=== PATIENT | male | born 1960 | race Caucasian/White ===

== ENCOUNTER 2016-07-05 21:07 | Inpatient (IN) | payer MEDICARE, MEDICAID ==
[~2016-07-05] VITALS: Ht 190.5 cm; Wt 100.2 kg
[~2016-07-05 21:07] MED LIST: DIVA500T69 PO; GABA-533 PO; LEVO100 PO; LISI5TAB PO; NALT50 PO; OLAN10TA22 PO; TRIH5TAB2 PO; [UNRECOGNIZED DRUG - CODE] TD
[2016-07-05 22:04] VITALS: BP 115/55
[2016-07-06 00:56] VITALS: BP 115/73
[2016-07-06] MEDS ORDERED: -PHARMACY VACCINE NOTE- MISC ONE ×2 (01:15)
[2016-07-06 07:31] LABS: BASOPHILS % (AUTO) 0.3 % (0.0-2.0); EOSINOPHILS % (AUTO) 0.5 % (1.0-6.0); HEMATOCRIT 38.8 % (41-53); HEMOGLOBIN 13.3 g/dL (13.5-17.5); LYMPHOCYTES # (AUTO) 2.1 K/uL (1.0-4.8); MEAN CORPUSCULAR HEMOGLOBIN 33.5 pg (26.0-34.0); MEAN CORPUSCULAR HGB CONC 34.2 G/dL (31.0-37.0); MEAN CORPUSCULAR VOLUME 98 fL (80-100); MONOCYTES # (AUTO) 0.6 K/uL (0.1-1.0); MONOCYTES % (AUTO) 6.1 % (2.0-9.0); NEUTROPHILS # (AUTO) 6.9 K/uL (1.8-7.7); NEUTROPHILS % (AUTO) 71.1 % (40.0-70.0); PLATELET COUNT (AUTO) 206 K/uL (150-450); RED BLOOD CELL COUNT(AUTO) 3.96 MIL/uL (4.50-5.90); RED CELL DISTRIBUTION WIDTH 12.8 % (11.5-14.5); WHITE BLOOD COUNT (AUTO) 9.7 K/uL (4.5-11.0)
[2016-07-06 07:54] LABS: HEMOGLOBIN A1C 4.8 % (4.5-6.2)
[2016-07-06] MEDS ORDERED: MAGNESIUM HYDROXIDE SUSPENSION 30 ML UDCUP PO PRN (08:00)
[2016-07-06] MEDS ORDERED: PHENYLEPHRINE/SHK LV/MIN OIL/PET 57 GM OINTMENT TP PRN (08:00)
[2016-07-06] MEDS ORDERED: PROMETHAZINE HCL 25 MG TABLET PO PRN (08:00)
[2016-07-06] MEDS ORDERED: MAG HYDROX/AL HYDROX/SIMETH ES 30 ML SUSPENSION UDCUP PO PRN (08:00)
[2016-07-06 08:08] LABS: ALANINE AMINOTRANSFERASE 28 U/L (12-78); ALBUMIN 2.5 g/dL (3.4-5.0); ANION GAP 3 mmol/L (8-16); ASPARTATE AMINOTRANSFERASE 20 U/L (15-37); BILIRUBIN,TOTAL 0.5 mg/dL (0.1-1.0); CALCIUM, TOTAL 8.2 mg/dL (8.8-10.5); CARBON DIOXIDE 32 mmol/L (22-29); CHLORIDE 101 mmol/L (98-107); CHOL/HDL RATIO 2.3 (4.2-7.3); CREATININE 0.96 mg/dL (0.60-1.30); GLOMERULAR FILTR. RATE CALC > 60 mL/min (>60); POTASSIUM 4.2 mmol/L (3.5-5.1); SODIUM SERUM 136 mmol/L (136-145); THYROID STIMULATING HORMONE 1.81 uIU/mL (0.36-3.74); TOTAL PROTEIN, SERUM 5.8 g/dL (6.4-8.2); UREA NITROGEN, BLOOD 14 mg/dL (7-18)
[2016-07-06] MEDS: THIAMINE HCL 100 MG TABLET PO SCH ×2 (08:12→16:40)
[2016-07-06] MEDS: FOLIC ACID 1 MG TABLET PO SCH (08:12)
[2016-07-06] MEDS: MULTIVITAMINS WITH MINERALS, THERAPEUTIC TABLET PO SCH (08:12)
[2016-07-06] MEDS: GABAPENTIN 400 MG CAPSULE PO SCH ×3 (08:13→16:40)
[2016-07-06] MEDS: TRIHEXYPHENIDYL HCL 5 MG TABLET PO SCH ×2 (08:13→16:40)
[2016-07-06] MEDS: LORazepam 2 MG TABLET PO PRN ×2 (08:21→12:34)
[2016-07-06 08:41] VITALS: BP 104/66
[2016-07-06] MEDS: LISINOPRIL 5 MG TABLET PO SCH (09:00)
[2016-07-06] MEDS: NICOTINE 21 MG/24 HOUR PATCH TD SCH (09:39)
[2016-07-06 16:11] VITALS: BP 137/67
[2016-07-06] MEDS: DIVALPROEX SODIUM 500 MG DR TABLET PO SCH (20:20)
[2016-07-06] MEDS ORDERED: OLANZapine 10 MG TABLET PO SCH (21:00)
[2016-07-06] MEDS: ZOLPIDEM TARTRATE 10 MG TABLET PO PRN (23:14)
[2016-07-07 02:11] VITALS: BP 123/67
[2016-07-07] MEDS: LEVOTHYROXINE SODIUM 100 MCG TABLET PO SCH (06:08)
[2016-07-07 08:35] VITALS: BP 136/72
[2016-07-07] MEDS: THIAMINE HCL 100 MG TABLET PO SCH ×2 (09:14→16:06)
[2016-07-07] MEDS: TRIHEXYPHENIDYL HCL 5 MG TABLET PO SCH ×2 (09:14→16:06)
[2016-07-07] MEDS: LISINOPRIL 5 MG TABLET PO SCH (09:14)
[2016-07-07] MEDS: NICOTINE 21 MG/24 HOUR PATCH TD SCH (09:14)
[2016-07-07] MEDS: MULTIVITAMINS WITH MINERALS, THERAPEUTIC TABLET PO SCH (09:14)
[2016-07-07] MEDS: FOLIC ACID 1 MG TABLET PO SCH (09:14)
[2016-07-07] MEDS: GABAPENTIN 400 MG CAPSULE PO SCH ×3 (09:14→16:06)
[2016-07-07] MEDS: LORazepam 2 MG TABLET PO PRN ×2 (09:23→14:22)
[2016-07-07] MEDS: GuaiFENesin/D-METHORPHAN [SUGAR-FREE] 200-20MG/10 ML SYRUP UDCUP PO PRN ×3 (10:20→18:40)
[2016-07-07] MEDS ORDERED: GuaiFENesin/D-METHORPHAN [SUGAR-FREE] 200-20MG/10 ML SYRUP UDCUP PO PRN (12:45)
[2016-07-07] MEDS ORDERED: HydrOXYzine PAMOATE 50 MG CAPSULE PO PRN (12:45)
[2016-07-07 16:36] VITALS: BP 133/80
[2016-07-07] MEDS ORDERED: THIAMINE HCL 100 MG TABLET PO SCH (17:00)
[2016-07-07] MEDS: DIVALPROEX SODIUM 500 MG DR TABLET PO SCH (20:14)
[2016-07-07] MEDS: ZOLPIDEM TARTRATE 10 MG TABLET PO PRN (21:23)
[2016-07-08 01:01] VITALS: BP 135/85
[2016-07-08] MEDS: LORazepam 2 MG TABLET PO PRN ×4 (01:04→23:42)
[2016-07-08] MEDS: GuaiFENesin/D-METHORPHAN [SUGAR-FREE] 200-20MG/10 ML SYRUP UDCUP PO PRN ×5 (02:05→21:11)
[2016-07-08] MEDS: LEVOTHYROXINE SODIUM 100 MCG TABLET PO SCH (06:24)
[2016-07-08 08:24] LABS: BASOPHILS % (AUTO) 0.4 % (0.0-2.0); EOSINOPHILS % (AUTO) 1.3 % (1.0-6.0); HEMATOCRIT 40.3 % (41-53); HEMOGLOBIN 13.9 g/dL (13.5-17.5); LYMPHOCYTES # (AUTO) 2.2 K/uL (1.0-4.8); LYMPHOCYTES % (AUTO) 33.5 % (22.0-44.0); MEAN CORPUSCULAR HEMOGLOBIN 33.8 pg (26.0-34.0); MEAN CORPUSCULAR HGB CONC 34.6 G/dL (31.0-37.0); MEAN CORPUSCULAR VOLUME 98 fL (80-100); MONOCYTES # (AUTO) 0.6 K/uL (0.1-1.0); MONOCYTES % (AUTO) 9.2 % (2.0-9.0); NEUTROPHILS # (AUTO) 3.6 K/uL (1.8-7.7); NEUTROPHILS % (AUTO) 55.6 % (40.0-70.0); PLATELET COUNT (AUTO) 227 K/uL (150-450); RED BLOOD CELL COUNT(AUTO) 4.13 MIL/uL (4.50-5.90); RED CELL DISTRIBUTION WIDTH 12.8 % (11.5-14.5); WHITE BLOOD COUNT (AUTO) 6.5 K/uL (4.5-11.0)
[2016-07-08 08:34] VITALS: BP 109/69
[2016-07-08] MEDS: THIAMINE HCL 100 MG TABLET PO SCH ×2 (08:59→16:13)
[2016-07-08] MEDS: MULTIVITAMINS WITH MINERALS, THERAPEUTIC TABLET PO SCH (08:59)
[2016-07-08] MEDS: LISINOPRIL 5 MG TABLET PO SCH (08:59)
[2016-07-08] MEDS: NICOTINE 21 MG/24 HOUR PATCH TD SCH (08:59)
[2016-07-08] MEDS: FOLIC ACID 1 MG TABLET PO SCH (08:59)
[2016-07-08] MEDS: GABAPENTIN 400 MG CAPSULE PO SCH ×3 (08:59→16:13)
[2016-07-08] MEDS ORDERED: MULTIVITAMINS WITH MINERALS, THERAPEUTIC TABLET PO SCH (09:00)
[2016-07-08] MEDS ORDERED: CloZAPine 25 MG TABLET PO SCH (09:00)
[2016-07-08] MEDS ORDERED: FOLIC ACID 1 MG TABLET PO SCH (09:00)
[2016-07-08] MEDS: NALTREXONE HCL 50 MG TABLET PO SCH (09:00)
[2016-07-08] MEDS: TRIHEXYPHENIDYL HCL 5 MG TABLET PO SCH ×2 (09:00→16:13)
[2016-07-08 16:00] VITALS: BP 120/78
[2016-07-08] MEDS: DIVALPROEX SODIUM 500 MG DR TABLET PO SCH (20:35)
[2016-07-08] MEDS: ZOLPIDEM TARTRATE 10 MG TABLET PO PRN (21:06)
[2016-07-08] MEDS ORDERED: TUBERCULIN, PURIFIED PROTEIN DERIVATIVE 5 TU/0.1 ML SYG ID ONE (22:15)
[2016-07-09] VITALS: BP 140/89
[2016-07-09] MEDS: LEVOTHYROXINE SODIUM 100 MCG TABLET PO SCH (06:33)
[2016-07-09 08:24] VITALS: BP 140/77
[2016-07-09] MEDS: FOLIC ACID 1 MG TABLET PO SCH (08:56)
[2016-07-09] MEDS: LISINOPRIL 5 MG TABLET PO SCH (08:56)
[2016-07-09] MEDS: GABAPENTIN 400 MG CAPSULE PO SCH ×3 (08:56→16:44)
[2016-07-09] MEDS: MULTIVITAMINS WITH MINERALS, THERAPEUTIC TABLET PO SCH (08:56)
[2016-07-09] MEDS: NICOTINE 21 MG/24 HOUR PATCH TD SCH (08:56)
[2016-07-09] MEDS: NALTREXONE HCL 50 MG TABLET PO SCH (08:56)
[2016-07-09] MEDS ORDERED: CloZAPine 25 MG TABLET PO SCH ×2 (09:00→21:00)
[2016-07-09] MEDS: THIAMINE HCL 100 MG TABLET PO SCH ×2 (09:04→16:44)
[2016-07-09] MEDS: TRIHEXYPHENIDYL HCL 5 MG TABLET PO SCH ×2 (09:04→16:44)
[2016-07-09] MEDS: LORazepam 2 MG TABLET PO PRN ×2 (10:07→14:35)
[2016-07-09 10:08] VITALS: BP 122/77
[2016-07-09] MEDS: GuaiFENesin/D-METHORPHAN [SUGAR-FREE] 200-20MG/10 ML SYRUP UDCUP PO PRN ×2 (10:11→16:45)
[2016-07-09] MEDS ORDERED: GuaiFENesin/D-METHORPHAN [SUGAR-FREE] 200-20MG/10 ML SYRUP UDCUP PO PRN (15:00)
[2016-07-09 16:12] VITALS: BP 118/73
[2016-07-09] MEDS: DIVALPROEX SODIUM 500 MG DR TABLET PO SCH (20:48)
[2016-07-10 01:00] VITALS: BP 139/89
[2016-07-10] MEDS: GuaiFENesin/D-METHORPHAN [SUGAR-FREE] 200-20MG/10 ML SYRUP UDCUP PO PRN ×2 (01:08→21:38)
[2016-07-10] MEDS: LORazepam 2 MG TABLET PO PRN ×3 (01:08→17:53)
[2016-07-10] MEDS: LEVOTHYROXINE SODIUM 100 MCG TABLET PO SCH (06:34)
[2016-07-10 08:36] VITALS: BP 118/60
[2016-07-10] MEDS ORDERED: CloZAPine 25 MG TABLET PO SCH ×2 (09:00→21:00)
[2016-07-10] MEDS: TRIHEXYPHENIDYL HCL 5 MG TABLET PO SCH ×2 (09:18→16:40)
[2016-07-10] MEDS: FOLIC ACID 1 MG TABLET PO SCH (09:18)
[2016-07-10] MEDS: GABAPENTIN 400 MG CAPSULE PO SCH ×3 (09:18→16:40)
[2016-07-10] MEDS: NALTREXONE HCL 50 MG TABLET PO SCH (09:18)
[2016-07-10] MEDS: THIAMINE HCL 100 MG TABLET PO SCH ×2 (09:19→16:40)
[2016-07-10] MEDS: LISINOPRIL 5 MG TABLET PO SCH (09:19)
[2016-07-10] MEDS: MULTIVITAMINS WITH MINERALS, THERAPEUTIC TABLET PO SCH (09:19)
[2016-07-10] MEDS: NICOTINE 21 MG/24 HOUR PATCH TD SCH (09:25)
[2016-07-10 12:40] VITALS: BP 120/84
[2016-07-10 16:11] VITALS: BP 127/69
[2016-07-10] MEDS: QUEtiapine FUMARATE 100 MG TABLET PO PRN (19:30)
[2016-07-10] MEDS ORDERED: ZIPRASIDONE MESYLATE 20 MG/VIAL IM ONE (19:45)
[2016-07-10] MEDS: DIVALPROEX SODIUM 500 MG DR TABLET PO SCH (20:50)
[2016-07-11 06:30] VITALS: BP 106/65
[2016-07-11] MEDS: LEVOTHYROXINE SODIUM 100 MCG TABLET PO SCH (06:41)
[2016-07-11 09:15] VITALS: BP 152/84
[2016-07-11] MEDS: TRIHEXYPHENIDYL HCL 5 MG TABLET PO SCH ×2 (09:29→16:09)
[2016-07-11] MEDS: THIAMINE HCL 100 MG TABLET PO SCH ×2 (09:30→16:08)
[2016-07-11] MEDS: MULTIVITAMINS WITH MINERALS, THERAPEUTIC TABLET PO SCH (09:30)
[2016-07-11] MEDS: FOLIC ACID 1 MG TABLET PO SCH (09:30)
[2016-07-11] MEDS: CloZAPine 25 MG TABLET PO SCH ×2 (09:30→20:06)
[2016-07-11] MEDS: NICOTINE 21 MG/24 HOUR PATCH TD SCH (09:30)
[2016-07-11] MEDS: LISINOPRIL 5 MG TABLET PO SCH (09:31)
[2016-07-11] MEDS: GABAPENTIN 400 MG CAPSULE PO SCH ×3 (09:31→16:09)
[2016-07-11] MEDS: NALTREXONE HCL 50 MG TABLET PO SCH (09:31)
[2016-07-11] MEDS: GuaiFENesin/D-METHORPHAN [SUGAR-FREE] 200-20MG/10 ML SYRUP UDCUP PO PRN ×2 (12:16→20:07)
[2016-07-11] MEDS: LORazepam 2 MG TABLET PO PRN (12:36)
[2016-07-11] MEDS: QUEtiapine FUMARATE 100 MG TABLET PO PRN (13:33)
[2016-07-11 16:13] VITALS: BP_SYST 109
[2016-07-11] MEDS: DIVALPROEX SODIUM 500 MG DR TABLET PO SCH (20:06)
[2016-07-11] MEDS: ZOLPIDEM TARTRATE 10 MG TABLET PO PRN (21:44)
[2016-07-12] MEDS: LEVOTHYROXINE SODIUM 100 MCG TABLET PO SCH (06:03)
[2016-07-12] MEDS: TRIHEXYPHENIDYL HCL 5 MG TABLET PO SCH (08:30)
[2016-07-12] MEDS: MULTIVITAMINS WITH MINERALS, THERAPEUTIC TABLET PO SCH (08:30)
[2016-07-12] MEDS: CloZAPine 25 MG TABLET PO SCH ×2 (08:31→20:41)
[2016-07-12] MEDS: GABAPENTIN 400 MG CAPSULE PO SCH ×3 (08:31→16:55)
[2016-07-12] MEDS: NICOTINE 21 MG/24 HOUR PATCH TD SCH (08:31)
[2016-07-12] MEDS: FOLIC ACID 1 MG TABLET PO SCH (08:31)
[2016-07-12] MEDS: THIAMINE HCL 100 MG TABLET PO SCH ×2 (08:31→16:55)
[2016-07-12] MEDS: NALTREXONE HCL 50 MG TABLET PO SCH (08:32)
[2016-07-12] MEDS: LORazepam 2 MG TABLET PO PRN ×2 (08:35→21:27)
[2016-07-12] MEDS: LISINOPRIL 5 MG TABLET PO SCH (10:15)
[2016-07-12] MEDS: GuaiFENesin/D-METHORPHAN [SUGAR-FREE] 200-20MG/10 ML SYRUP UDCUP PO PRN (12:23)
[2016-07-12 16:07] VITALS: BP 117/64
[2016-07-12] MEDS: TRIHEXYPHENIDYL HCL 2 MG TABLET PO SCH (16:55)
[2016-07-12] MEDS: DIVALPROEX SODIUM 500 MG DR TABLET PO SCH (20:41)
[2016-07-12] MEDS: ZOLPIDEM TARTRATE 10 MG TABLET PO PRN (21:27)
[2016-07-13 02:08] VITALS: BP 121/66
[2016-07-13] MEDS: LEVOTHYROXINE SODIUM 100 MCG TABLET PO SCH (06:29)
[2016-07-13] MEDS: THIAMINE HCL 100 MG TABLET PO SCH ×2 (08:50→16:38)
[2016-07-13] MEDS: GABAPENTIN 400 MG CAPSULE PO SCH ×3 (08:50→16:38)
[2016-07-13] MEDS: FOLIC ACID 1 MG TABLET PO SCH (08:50)
[2016-07-13] MEDS: NALTREXONE HCL 50 MG TABLET PO SCH (08:50)
[2016-07-13] MEDS: LISINOPRIL 5 MG TABLET PO SCH (08:50)
[2016-07-13] MEDS: MULTIVITAMINS WITH MINERALS, THERAPEUTIC TABLET PO SCH (08:50)
[2016-07-13] MEDS: TRIHEXYPHENIDYL HCL 2 MG TABLET PO SCH ×2 (08:50→16:38)
[2016-07-13] MEDS: NICOTINE 21 MG/24 HOUR PATCH TD SCH (08:51)
[2016-07-13] MEDS ORDERED: CloZAPine 25 MG TABLET PO SCH (09:00)
[2016-07-13 09:20] VITALS: BP 107/58
[2016-07-13] MEDS: LORazepam 2 MG TABLET PO PRN (13:33)
[2016-07-13] MEDS: GuaiFENesin/D-METHORPHAN [SUGAR-FREE] 200-20MG/10 ML SYRUP UDCUP PO PRN (16:38)
[2016-07-13 18:18] VITALS: BP 120/76
[2016-07-13] MEDS: DIVALPROEX SODIUM 500 MG DR TABLET PO SCH (20:27)
[2016-07-13] MEDS ORDERED: CloZAPine 100 MG TABLET PO SCH (21:00)
[2016-07-13] MEDS: ZOLPIDEM TARTRATE 10 MG TABLET PO PRN (21:59)
[2016-07-14 06:22] VITALS: BP 124/62
[2016-07-14] MEDS: LEVOTHYROXINE SODIUM 100 MCG TABLET PO SCH (06:27)
[2016-07-14] MEDS: THIAMINE HCL 100 MG TABLET PO SCH ×2 (08:50→16:26)
[2016-07-14] MEDS: FOLIC ACID 1 MG TABLET PO SCH (08:50)
[2016-07-14] MEDS: TRIHEXYPHENIDYL HCL 2 MG TABLET PO SCH ×2 (08:51→16:26)
[2016-07-14] MEDS: LORazepam 2 MG TABLET PO PRN ×3 (08:51→22:51)
[2016-07-14] MEDS: NALTREXONE HCL 50 MG TABLET PO SCH (08:51)
[2016-07-14] MEDS: MULTIVITAMINS WITH MINERALS, THERAPEUTIC TABLET PO SCH (08:51)
[2016-07-14] MEDS: GABAPENTIN 400 MG CAPSULE PO SCH ×3 (08:51→16:26)
[2016-07-14] MEDS: NICOTINE 21 MG/24 HOUR PATCH TD SCH (08:53)
[2016-07-14] MEDS: LISINOPRIL 5 MG TABLET PO SCH (08:54)
[2016-07-14 08:55] VITALS: BP 115/67
[2016-07-14] MEDS ORDERED: CloZAPine 25 MG TABLET PO SCH (09:00)
[2016-07-14 16:00] VITALS: BP 138/86
[2016-07-14] MEDS: GuaiFENesin/D-METHORPHAN [SUGAR-FREE] 200-20MG/10 ML SYRUP UDCUP PO PRN (20:34)
[2016-07-14] MEDS: DIVALPROEX SODIUM 250 MG DR TABLET PO SCH (20:35)
[2016-07-14] MEDS: ZOLPIDEM TARTRATE 10 MG TABLET PO PRN (20:52)
[2016-07-14] MEDS ORDERED: CloZAPine 100 MG TABLET PO SCH (21:00)
[2016-07-14] MEDS: ACETAMINOPHEN 325 MG TABLET PO PRN (22:08)
[2016-07-14] MEDS ORDERED: DiphenhydrAMINE HCL 50 MG/ML VIAL IM ONE (23:45)
[2016-07-14] MEDS ORDERED: FluPHENAZine HCL 2.5 MG/ML INJ IM ONE ×2 (23:45→23:59)
[2016-07-14] MEDS ORDERED: LORazepam 2 MG/ML VIAL IM ONE (23:45)
[2016-07-14] MEDS ORDERED: LORazepam 0.5 MG TABLET ONE (23:50)
[2016-07-14] MEDS ORDERED: LORazepam 2 MG/ML VIAL ONE (23:52)
[2016-07-14] MEDS ORDERED: DiphenhydrAMINE HCL 50 MG/ML VIAL ONE (23:53)
[2016-07-15 00:05] VITALS: BP 112/63
[2016-07-15 00:40] VITALS: BP 126/74
[2016-07-15] MEDS: LEVOTHYROXINE SODIUM 100 MCG TABLET PO SCH (06:35)
[2016-07-15] MEDS: FOLIC ACID 1 MG TABLET PO SCH (08:41)
[2016-07-15] MEDS: TRIHEXYPHENIDYL HCL 2 MG TABLET PO SCH ×2 (08:41→16:42)
[2016-07-15] MEDS: GABAPENTIN 400 MG CAPSULE PO SCH ×3 (08:41→16:42)
[2016-07-15] MEDS: MULTIVITAMINS WITH MINERALS, THERAPEUTIC TABLET PO SCH (08:42)
[2016-07-15] MEDS: LISINOPRIL 5 MG TABLET PO SCH (08:42)
[2016-07-15] MEDS: NALTREXONE HCL 50 MG TABLET PO SCH (08:42)
[2016-07-15] MEDS: THIAMINE HCL 100 MG TABLET PO SCH ×2 (08:42→16:42)
[2016-07-15] MEDS: NICOTINE 21 MG/24 HOUR PATCH TD SCH (08:42)
[2016-07-15 08:44] VITALS: BP 133/66
[2016-07-15] MEDS ORDERED: CloZAPine 25 MG TABLET PO SCH (09:00)
[2016-07-15 18:57] VITALS: BP 128/73
[2016-07-15] MEDS: QUEtiapine FUMARATE 100 MG TABLET PO PRN (19:02)
[2016-07-15] MEDS: GuaiFENesin/D-METHORPHAN [SUGAR-FREE] 200-20MG/10 ML SYRUP UDCUP PO PRN (19:31)
[2016-07-15] MEDS ORDERED: CloZAPine 100 MG TABLET PO SCH (21:00)
[2016-07-15] MEDS: DIVALPROEX SODIUM 250 MG DR TABLET PO SCH (21:12)
[2016-07-16] MEDS: GuaiFENesin/D-METHORPHAN [SUGAR-FREE] 200-20MG/10 ML SYRUP UDCUP PO PRN ×3 (01:43→17:07)
[2016-07-16] MEDS: QUEtiapine FUMARATE 100 MG TABLET PO PRN (01:48)
[2016-07-16] MEDS: LORazepam 2 MG TABLET PO PRN ×3 (01:48→15:40)
[2016-07-16 01:49] VITALS: BP 111/61
[2016-07-16] MEDS: LEVOTHYROXINE SODIUM 100 MCG TABLET PO SCH (06:24)
[2016-07-16 08:25] LABS: BASOPHILS % (AUTO) 0.4 % (0.0-2.0); EOSINOPHILS % (AUTO) 1.7 % (1.0-6.0); HEMATOCRIT 42.3 % (41-53); HEMOGLOBIN 14.1 g/dL (13.5-17.5); LYMPHOCYTES # (AUTO) 2.6 K/uL (1.0-4.8); LYMPHOCYTES % (AUTO) 35.3 % (22.0-44.0); MEAN CORPUSCULAR HEMOGLOBIN 32.9 pg (26.0-34.0); MEAN CORPUSCULAR HGB CONC 33.3 G/dL (31.0-37.0); MEAN CORPUSCULAR VOLUME 99 fL (80-100); MONOCYTES # (AUTO) 0.6 K/uL (0.1-1.0); MONOCYTES % (AUTO) 7.7 % (2.0-9.0); NEUTROPHILS % (AUTO) 54.9 % (40.0-70.0); PLATELET COUNT (AUTO) 340 K/uL (150-450); RED BLOOD CELL COUNT(AUTO) 4.28 MIL/uL (4.50-5.90); RED CELL DISTRIBUTION WIDTH 12.9 % (11.5-14.5); WHITE BLOOD COUNT (AUTO) 7.3 K/uL (4.5-11.0)
[2016-07-16] MEDS: MULTIVITAMINS WITH MINERALS, THERAPEUTIC TABLET PO SCH (09:24)
[2016-07-16] MEDS: GABAPENTIN 400 MG CAPSULE PO SCH ×3 (09:24→16:00)
[2016-07-16] MEDS: THIAMINE HCL 100 MG TABLET PO SCH ×2 (09:24→16:01)
[2016-07-16] MEDS: NALTREXONE HCL 50 MG TABLET PO SCH (09:24)
[2016-07-16] MEDS: LISINOPRIL 5 MG TABLET PO SCH (09:24)
[2016-07-16] MEDS: TRIHEXYPHENIDYL HCL 2 MG TABLET PO SCH ×2 (09:24→16:01)
[2016-07-16] MEDS: NICOTINE 21 MG/24 HOUR PATCH TD SCH (09:25)
[2016-07-16] MEDS: CloZAPine 100 MG TABLET PO SCH ×2 (09:25→20:22)
[2016-07-16] MEDS: FOLIC ACID 1 MG TABLET PO SCH (09:25)
[2016-07-16] MEDS: ALBUTEROL SULFATE HFA 90 MCG/PUFF 8 GM INHALER IH PRN ×2 (10:59→20:23)
[2016-07-16 12:30] VITALS: BP 122/78
[2016-07-16] MEDS: ACETAMINOPHEN 325 MG TABLET PO PRN (12:32)
[2016-07-16 14:30] VITALS: BP 115/85
[2016-07-16] MEDS: IBUPROFEN 600 MG TABLET PO PRN (14:32)
[2016-07-16 16:11] VITALS: BP 119/66
[2016-07-16] MEDS ORDERED: ACETAMINOPHEN 325 MG TABLET PO PRN (18:00)
[2016-07-16] MEDS ORDERED: GuaiFENesin/D-METHORPHAN [SUGAR-FREE] 200-20MG/10 ML SYRUP UDCUP PO PRN (18:30)
[2016-07-16] MEDS: DIVALPROEX SODIUM 250 MG DR TABLET PO SCH (20:21)
[2016-07-17] MEDS: ALBUTEROL SULFATE HFA 90 MCG/PUFF 8 GM INHALER IH PRN (03:09)
[2016-07-17] MEDS: LEVOTHYROXINE SODIUM 100 MCG TABLET PO SCH (06:19)
[2016-07-17 07:00] VITALS: BP 118/71
[2016-07-17] MEDS: THIAMINE HCL 100 MG TABLET PO SCH ×2 (08:16→16:31)
[2016-07-17] MEDS: FOLIC ACID 1 MG TABLET PO SCH (08:16)
[2016-07-17] MEDS: CloZAPine 100 MG TABLET PO SCH ×2 (08:16→20:25)
[2016-07-17] MEDS: LISINOPRIL 5 MG TABLET PO SCH (08:16)
[2016-07-17] MEDS: NALTREXONE HCL 50 MG TABLET PO SCH (08:16)
[2016-07-17] MEDS: MULTIVITAMINS WITH MINERALS, THERAPEUTIC TABLET PO SCH (08:16)
[2016-07-17] MEDS: GABAPENTIN 400 MG CAPSULE PO SCH ×3 (08:16→16:31)
[2016-07-17] MEDS: TRIHEXYPHENIDYL HCL 2 MG TABLET PO SCH ×2 (08:16→16:31)
[2016-07-17] MEDS: NICOTINE 21 MG/24 HOUR PATCH TD SCH (08:26)
[2016-07-17 08:28] VITALS: BP 135/70
[2016-07-17] MEDS: GuaiFENesin/D-METHORPHAN [SUGAR-FREE] 200-20MG/10 ML SYRUP UDCUP PO PRN ×2 (10:26→20:14)
[2016-07-17] MEDS: LORazepam 2 MG TABLET PO PRN ×3 (12:30→22:10)
[2016-07-17 16:02] VITALS: BP 138/82
[2016-07-17] MEDS: DIVALPROEX SODIUM 250 MG DR TABLET PO SCH (20:25)
[2016-07-17] MEDS: ZOLPIDEM TARTRATE 10 MG TABLET PO PRN (20:29)
[2016-07-17 21:08] VITALS: BP 132/78
[2016-07-17] MEDS: IBUPROFEN 600 MG TABLET PO PRN (21:08)
[2016-07-18 00:51] VITALS: BP 116/75
[2016-07-18] MEDS: LEVOTHYROXINE SODIUM 100 MCG TABLET PO SCH (06:26)
[2016-07-18] MEDS ORDERED: CloZAPine 25 MG TABLET PO SCH (09:00)
[2016-07-18] MEDS: LISINOPRIL 5 MG TABLET PO SCH (10:37)
[2016-07-18] MEDS: THIAMINE HCL 100 MG TABLET PO SCH ×2 (10:37→16:01)
[2016-07-18] MEDS: FOLIC ACID 1 MG TABLET PO SCH (10:37)
[2016-07-18] MEDS: NALTREXONE HCL 50 MG TABLET PO SCH (10:37)
[2016-07-18] MEDS: MULTIVITAMINS WITH MINERALS, THERAPEUTIC TABLET PO SCH (10:37)
[2016-07-18] MEDS: GABAPENTIN 400 MG CAPSULE PO SCH ×3 (10:38→16:01)
[2016-07-18] MEDS: TRIHEXYPHENIDYL HCL 2 MG TABLET PO SCH ×2 (10:38→16:01)
[2016-07-18] MEDS: NICOTINE 21 MG/24 HOUR PATCH TD SCH (10:38)
[2016-07-18] MEDS: GuaiFENesin/D-METHORPHAN [SUGAR-FREE] 200-20MG/10 ML SYRUP UDCUP PO PRN ×2 (11:20→20:29)
[2016-07-18] MEDS: LORazepam 2 MG TABLET PO PRN ×2 (13:30→20:30)
[2016-07-18 16:10] VITALS: BP 127/86
[2016-07-18] MEDS: DIVALPROEX SODIUM 250 MG DR TABLET PO SCH (20:26)
[2016-07-18] MEDS ORDERED: CloZAPine 100 MG TABLET PO SCH (21:00)
[2016-07-19 01:15] VITALS: BP 119/89
[2016-07-19] MEDS: LORazepam 2 MG TABLET PO PRN ×3 (01:18→17:12)
[2016-07-19] MEDS: ALBUTEROL SULFATE HFA 90 MCG/PUFF 8 GM INHALER IH PRN (05:12)
[2016-07-19] MEDS: GuaiFENesin/D-METHORPHAN [SUGAR-FREE] 200-20MG/10 ML SYRUP UDCUP PO PRN ×2 (05:12→12:23)
[2016-07-19] MEDS: LEVOTHYROXINE SODIUM 100 MCG TABLET PO SCH (06:35)
[2016-07-19 08:28] VITALS: BP 114/69
[2016-07-19] MEDS ORDERED: CloZAPine 25 MG TABLET PO SCH (09:00)
[2016-07-19] MEDS: NICOTINE 21 MG/24 HOUR PATCH TD SCH (10:30)
[2016-07-19] MEDS: NALTREXONE HCL 50 MG TABLET PO SCH (10:30)
[2016-07-19] MEDS: THIAMINE HCL 100 MG TABLET PO SCH ×2 (10:30→16:20)
[2016-07-19] MEDS: TRIHEXYPHENIDYL HCL 2 MG TABLET PO SCH (10:30)
[2016-07-19] MEDS: FOLIC ACID 1 MG TABLET PO SCH (10:30)
[2016-07-19] MEDS: MULTIVITAMINS WITH MINERALS, THERAPEUTIC TABLET PO SCH (10:30)
[2016-07-19] MEDS: GABAPENTIN 400 MG CAPSULE PO SCH ×3 (10:31→16:20)
[2016-07-19] MEDS: LISINOPRIL 5 MG TABLET PO SCH (10:49)
[2016-07-19 16:07] VITALS: BP 124/74
[2016-07-19] MEDS: TRIHEXYPHENIDYL HCL 5 MG TABLET PO SCH (16:20)
[2016-07-19] MEDS: DIVALPROEX SODIUM 250 MG DR TABLET PO SCH (20:33)
[2016-07-19] MEDS ORDERED: CloZAPine 100 MG TABLET PO SCH (21:00)
[2016-07-20] MEDS: QUEtiapine FUMARATE 100 MG TABLET PO PRN (00:02)
[2016-07-20] MEDS: IBUPROFEN 600 MG TABLET PO PRN ×2 (00:02→16:28)
[2016-07-20] MEDS: LORazepam 2 MG TABLET PO PRN ×3 (00:02→22:26)
[2016-07-20 00:09] VITALS: BP 121/76
[2016-07-20] MEDS: LEVOTHYROXINE SODIUM 100 MCG TABLET PO SCH (06:26)
[2016-07-20 08:04] VITALS: BP 108/69
[2016-07-20] MEDS: CloZAPine 100 MG TABLET PO SCH ×2 (09:59→20:15)
[2016-07-20] MEDS: TRIHEXYPHENIDYL HCL 5 MG TABLET PO SCH ×3 (09:59→16:29)
[2016-07-20] MEDS: FOLIC ACID 1 MG TABLET PO SCH (09:59)
[2016-07-20] MEDS: LISINOPRIL 5 MG TABLET PO SCH (09:59)
[2016-07-20] MEDS: NALTREXONE HCL 50 MG TABLET PO SCH (09:59)
[2016-07-20] MEDS: GABAPENTIN 400 MG CAPSULE PO SCH ×3 (09:59→16:28)
[2016-07-20] MEDS: MULTIVITAMINS WITH MINERALS, THERAPEUTIC TABLET PO SCH (09:59)
[2016-07-20] MEDS: THIAMINE HCL 100 MG TABLET PO SCH ×2 (09:59→16:28)
[2016-07-20] MEDS: NICOTINE 21 MG/24 HOUR PATCH TD SCH (10:00)
[2016-07-20] MEDS: GuaiFENesin/D-METHORPHAN [SUGAR-FREE] 200-20MG/10 ML SYRUP UDCUP PO PRN ×2 (12:56→22:58)
[2016-07-20 16:28] VITALS: BP 127/73
[2016-07-20] MEDS: DIVALPROEX SODIUM 250 MG DR TABLET PO SCH (20:15)
[2016-07-20] MEDS: ZOLPIDEM TARTRATE 10 MG TABLET PO PRN (21:19)
[2016-07-21 03:40] VITALS: BP 103/73
[2016-07-21] MEDS: LEVOTHYROXINE SODIUM 100 MCG TABLET PO SCH (06:25)
[2016-07-21 08:44] VITALS: BP 102/61
[2016-07-21] MEDS: GABAPENTIN 400 MG CAPSULE PO SCH ×3 (08:46→16:25)
[2016-07-21] MEDS: FOLIC ACID 1 MG TABLET PO SCH (08:46)
[2016-07-21] MEDS: NICOTINE 21 MG/24 HOUR PATCH TD SCH (08:46)
[2016-07-21] MEDS: TRIHEXYPHENIDYL HCL 5 MG TABLET PO SCH ×3 (08:46→16:25)
[2016-07-21] MEDS: CloZAPine 100 MG TABLET PO SCH ×2 (08:46→20:15)
[2016-07-21] MEDS: MULTIVITAMINS WITH MINERALS, THERAPEUTIC TABLET PO SCH (08:46)
[2016-07-21] MEDS: THIAMINE HCL 100 MG TABLET PO SCH ×2 (08:46→16:25)
[2016-07-21] MEDS: NALTREXONE HCL 50 MG TABLET PO SCH (08:46)
[2016-07-21] MEDS: LISINOPRIL 5 MG TABLET PO SCH (08:46)
[2016-07-21] MEDS: LORazepam 2 MG TABLET PO PRN ×2 (11:14→16:24)
[2016-07-21] MEDS: GuaiFENesin/D-METHORPHAN [SUGAR-FREE] 200-20MG/10 ML SYRUP UDCUP PO PRN (12:56)
[2016-07-21] MEDS: IBUPROFEN 600 MG TABLET PO PRN (12:56)
[2016-07-21 16:04] VITALS: BP 128/76
[2016-07-21] MEDS: DIVALPROEX SODIUM 250 MG DR TABLET PO SCH (20:15)
[2016-07-21] MEDS: ZOLPIDEM TARTRATE 10 MG TABLET PO PRN (20:18)
[2016-07-22] MEDS: LORazepam 2 MG TABLET PO PRN ×3 (01:49→14:45)
[2016-07-22] MEDS: LEVOTHYROXINE SODIUM 100 MCG TABLET PO SCH (05:57)
[2016-07-22 06:14] VITALS: BP 138/67
[2016-07-22 08:36] LABS: BASOPHILS % (AUTO) 0.6 % (0.0-2.0); EOSINOPHILS % (AUTO) 1.9 % (1.0-6.0); HEMATOCRIT 40.4 % (41-53); HEMOGLOBIN 13.5 g/dL (13.5-17.5); LYMPHOCYTES # (AUTO) 2.4 K/uL (1.0-4.8); LYMPHOCYTES % (AUTO) 46.3 % (22.0-44.0); MEAN CORPUSCULAR HEMOGLOBIN 32.6 pg (26.0-34.0); MEAN CORPUSCULAR HGB CONC 33.5 G/dL (31.0-37.0); MEAN CORPUSCULAR VOLUME 97 fL (80-100); MONOCYTES # (AUTO) 0.5 K/uL (0.1-1.0); MONOCYTES % (AUTO) 8.9 % (2.0-9.0); NEUTROPHILS # (AUTO) 2.2 K/uL (1.8-7.7); NEUTROPHILS % (AUTO) 42.3 % (40.0-70.0); PLATELET COUNT (AUTO) 358 K/uL (150-450); RED BLOOD CELL COUNT(AUTO) 4.15 MIL/uL (4.50-5.90); RED CELL DISTRIBUTION WIDTH 12.8 % (11.5-14.5); WHITE BLOOD COUNT (AUTO) 5.1 K/uL (4.5-11.0)
[2016-07-22] MEDS: NICOTINE 21 MG/24 HOUR PATCH TD SCH (08:40)
[2016-07-22] MEDS: LISINOPRIL 5 MG TABLET PO SCH (08:41)
[2016-07-22] MEDS: CloZAPine 100 MG TABLET PO SCH ×2 (08:41→20:53)
[2016-07-22] MEDS: THIAMINE HCL 100 MG TABLET PO SCH ×2 (08:41→16:18)
[2016-07-22] MEDS: GABAPENTIN 400 MG CAPSULE PO SCH ×3 (08:41→16:18)
[2016-07-22] MEDS: NALTREXONE HCL 50 MG TABLET PO SCH (08:41)
[2016-07-22] MEDS: FOLIC ACID 1 MG TABLET PO SCH (08:41)
[2016-07-22] MEDS: MULTIVITAMINS WITH MINERALS, THERAPEUTIC TABLET PO SCH (08:41)
[2016-07-22] MEDS: TRIHEXYPHENIDYL HCL 5 MG TABLET PO SCH ×3 (08:55→16:18)
[2016-07-22 08:56] VITALS: BP 104/62
[2016-07-22] MEDS: GuaiFENesin/D-METHORPHAN [SUGAR-FREE] 200-20MG/10 ML SYRUP UDCUP PO PRN (10:43)
[2016-07-22] MEDS ORDERED: TRIH5TAB2 PO (11:09)
[2016-07-22] MEDS ORDERED: GABA-533 PO (11:09)
[2016-07-22] MEDS ORDERED: CLOZ100 PO ×2 (11:09)
[2016-07-22] MEDS ORDERED: DIVA250T4 PO (11:09)
[2016-07-22] MEDS ORDERED: NALT50 PO (11:09)
[2016-07-22] MEDS: QUEtiapine FUMARATE 100 MG TABLET PO PRN (12:03)
[2016-07-22 16:28] VITALS: BP 120/80
[2016-07-22] MEDS: IBUPROFEN 600 MG TABLET PO PRN (17:52)
[2016-07-22] MEDS: DIVALPROEX SODIUM 250 MG DR TABLET PO SCH (20:53)
[2016-07-22] MEDS: ZOLPIDEM TARTRATE 10 MG TABLET PO PRN (23:46)
[2016-07-22] MEDS: ALBUTEROL SULFATE HFA 90 MCG/PUFF 8 GM INHALER IH PRN (23:46)
[2016-07-23 00:10] VITALS: BP 126/72
[2016-07-23] MEDS: LEVOTHYROXINE SODIUM 100 MCG TABLET PO SCH (05:45)
[2016-07-23] MEDS ORDERED: DIVA250T25 PO (08:31)
[2016-07-23] MEDS ORDERED: CLOZ100 PO ×2 (08:31)
[2016-07-23] MEDS ORDERED: GABA-533 PO (08:31)
[2016-07-23] MEDS ORDERED: NALT50 PO (08:31)
[2016-07-23] MEDS: LISINOPRIL 5 MG TABLET PO SCH (08:37)
[2016-07-23] MEDS: MULTIVITAMINS WITH MINERALS, THERAPEUTIC TABLET PO SCH (08:38)
[2016-07-23] MEDS: GABAPENTIN 400 MG CAPSULE PO SCH (08:38)
[2016-07-23] MEDS: NALTREXONE HCL 50 MG TABLET PO SCH (08:38)
[2016-07-23] MEDS: CloZAPine 100 MG TABLET PO SCH (08:38)
[2016-07-23] MEDS: THIAMINE HCL 100 MG TABLET PO SCH (08:38)
[2016-07-23] MEDS: FOLIC ACID 1 MG TABLET PO SCH (08:38)
[2016-07-23] MEDS: TRIHEXYPHENIDYL HCL 5 MG TABLET PO SCH (08:38)
[2016-07-23] MEDS: NICOTINE 21 MG/24 HOUR PATCH TD SCH (08:44)
[2016-07-23 08:49] VITALS: BP 115/74
[2016-07-23 11:15] LABS: CLOZAPINE 233 ng/mL (350-650); CLOZAPINE & NORCLOZAPINE 329 ng/mL; NORCLOZAPINE 96 ng/mL (Not Estab.)
== END 2016-07-23 09:00 | disposition home or self-care (01) | DRG 885 ==
LOC: B2S 21:34 → EDSTATUS 21:40 → B2S 07-13 00:40
PROVIDERS: ADMIT Psychiatry & Neurology Psychiatry; ATTEND Psychiatry & Neurology Psychiatry
DX: F20.0 Paranoid schizophrenia (principal); E44.1 Mild protein-calorie malnutrition; R45.851 Suicidal ideations; B18.2 Chronic viral hepatitis C; E03.9 Hypothyroidism, unspecified; Z68.27 Body mass index [BMI] 27.0-27.9, adult; F25.0 Schizoaffective disorder, bipolar type; F12.10 Cannabis abuse, uncomplicated; I10 Essential (primary) hypertension; J44.9 Chronic obstructive pulmonary disease, unspecified; Z91.013 Allergy to seafood; Z91.19 Patient's noncompliance with other medical treatment and regimen; Z56.0 Unemployment, unspecified; M19.90 Unspecified osteoarthritis, unspecified site; D64.9 Anemia, unspecified; M70.30 Other bursitis of elbow, unspecified elbow; F17.210 Nicotine dependence, cigarettes, uncomplicated; Z88.8 Allergy status to other drugs, medicaments and biological substances; Z79.899 Other long term (current) drug therapy
CPT/HCPCS: 80159; 83036; 84439; 84443; 87081; J1200; J2060; J3486; J3490; J3535

== ENCOUNTER 2016-08-08 22:00 | Inpatient (IN) | payer MEDICARE, MEDICAID ==
[~2016-08-08] VITALS: Ht 185.4 cm; Wt 100.2 kg
[~2016-08-08 22:00] MED LIST changes: +CLOZ100 PO; +DIVA250T25 PO; +DIVA250T4 PO; -DIVA500T69 PO; -[UNRECOGNIZED DRUG - CODE] TD
[2016-08-09] MEDS ORDERED: SODIUM CHLORIDE 0.9% 1,000 ML IV ONE (02:00)
[2016-08-09 02:47] LABS: BASOPHILS % (AUTO) 0.4 % (0.0-2.0); EOSINOPHILS % (AUTO) 0.7 % (1.0-6.0); HEMATOCRIT 42.8 % (41-53); HEMOGLOBIN 14.4 g/dL (13.5-17.5); LYMPHOCYTES # (AUTO) 2.8 K/uL (1.0-4.8); MEAN CORPUSCULAR HEMOGLOBIN 32.5 pg (26.0-34.0); MEAN CORPUSCULAR HGB CONC 33.6 G/dL (31.0-37.0); MEAN CORPUSCULAR VOLUME 97 fL (80-100); MONOCYTES # (AUTO) 0.7 K/uL (0.1-1.0); MONOCYTES % (AUTO) 8.7 % (2.0-9.0); NEUTROPHILS # (AUTO) 4.8 K/uL (1.8-7.7); NEUTROPHILS % (AUTO) 57.2 % (40.0-70.0); PLATELET COUNT (AUTO) 324 K/uL (150-450); RED BLOOD CELL COUNT(AUTO) 4.42 MIL/uL (4.50-5.90); RED CELL DISTRIBUTION WIDTH 12.9 % (11.5-14.5); WHITE BLOOD COUNT (AUTO) 8.4 K/uL (4.5-11.0)
[2016-08-09 02:53] LABS: CALCIUM, TOTAL 9.4 mg/dL (8.8-10.5); CREATININE 1.84 mg/dL (0.60-1.30); POTASSIUM 3.7 mmol/L (3.5-5.1)
[2016-08-09 02:58] LABS: ALBUMIN 3.7 g/dL (3.4-5.0); BILIRUBIN,TOTAL 0.8 mg/dL (0.1-1.0); TOTAL PROTEIN, SERUM 7.6 g/dL (6.4-8.2)
[2016-08-09] MEDS ORDERED: CefTRIAXone 1 GM/DEXTROSE 50 ML IV ONE (05:45)
[2016-08-09 08:58] VITALS: BP 108/66
[2016-08-09] MEDS: CloZAPine 100 MG TABLET PO SCH ×2 (09:00→20:52)
[2016-08-09] MEDS: NALTREXONE HCL 50 MG TABLET PO SCH (10:27)
[2016-08-09] MEDS: AMOX TR/POT CLAV 875 MG/125 MG TABLET PO SCH ×2 (10:27→16:45)
[2016-08-09] MEDS: GABAPENTIN 400 MG CAPSULE PO SCH ×3 (10:29→19:26)
[2016-08-09] MEDS: TRIHEXYPHENIDYL HCL 5 MG TABLET PO SCH ×3 (10:44→19:26)
[2016-08-09 10:46] VITALS: BP 105/77
[2016-08-09] MEDS ORDERED: MAGNESIUM HYDROXIDE SUSPENSION 30 ML UDCUP PO PRN (12:30)
[2016-08-09] MEDS ORDERED: HydrOXYzine PAMOATE 50 MG CAPSULE PO PRN (12:30)
[2016-08-09] MEDS ORDERED: LOPERAMIDE HCL 2 MG CAPSULE PO PRN (12:30)
[2016-08-09] MEDS: THIAMINE HCL 100 MG TABLET PO SCH (16:45)
[2016-08-09 16:53] VITALS: BP 102/58
[2016-08-09] MEDS: DIVALPROEX SODIUM 250 MG DR TABLET PO SCH (20:52)
[2016-08-09] MEDS ORDERED: OLANZapine 10 MG TABLET PO SCH (21:00)
[2016-08-10 06:24] VITALS: BP 98/60
[2016-08-10] MEDS: LEVOTHYROXINE SODIUM 100 MCG TABLET PO SCH (06:40)
[2016-08-10 08:40] VITALS: BP 103/60
[2016-08-10] MEDS: CloZAPine 100 MG TABLET PO SCH ×2 (09:08→20:35)
[2016-08-10] MEDS: THIAMINE HCL 100 MG TABLET PO SCH ×2 (09:08→16:03)
[2016-08-10] MEDS: MULTIVITAMINS WITH MINERALS, THERAPEUTIC TABLET PO SCH (09:08)
[2016-08-10] MEDS: FOLIC ACID 1 MG TABLET PO SCH (09:08)
[2016-08-10] MEDS: GABAPENTIN 400 MG CAPSULE PO SCH ×3 (09:08→16:03)
[2016-08-10] MEDS: TRIHEXYPHENIDYL HCL 5 MG TABLET PO SCH ×3 (09:42→16:03)
[2016-08-10] MEDS: NALTREXONE HCL 50 MG TABLET PO SCH (09:46)
[2016-08-10] MEDS: LORazepam 2 MG TABLET PO PRN (14:16)
[2016-08-10 16:13] VITALS: BP 120/61
[2016-08-10] MEDS: DIVALPROEX SODIUM 250 MG DR TABLET PO SCH (20:35)
[2016-08-11] MEDS: LEVOTHYROXINE SODIUM 100 MCG TABLET PO SCH (06:24)
[2016-08-11 06:53] VITALS: BP 124/70
[2016-08-11 08:35] VITALS: BP 134/86
[2016-08-11] MEDS: THIAMINE HCL 100 MG TABLET PO SCH ×2 (09:12→16:20)
[2016-08-11] MEDS: GABAPENTIN 400 MG CAPSULE PO SCH ×3 (09:12→16:20)
[2016-08-11] MEDS: TRIHEXYPHENIDYL HCL 5 MG TABLET PO SCH ×3 (09:12→16:20)
[2016-08-11] MEDS: NALTREXONE HCL 50 MG TABLET PO SCH (09:12)
[2016-08-11] MEDS: MULTIVITAMINS WITH MINERALS, THERAPEUTIC TABLET PO SCH (09:12)
[2016-08-11] MEDS: FOLIC ACID 1 MG TABLET PO SCH (09:12)
[2016-08-11] MEDS: CloZAPine 100 MG TABLET PO SCH ×2 (09:12→20:25)
[2016-08-11 09:21] LABS: ALANINE AMINOTRANSFERASE 26 U/L (12-78); ANION GAP 8 mmol/L (8-16); ASPARTATE AMINOTRANSFERASE 21 U/L (15-37); BILIRUBIN,TOTAL 0.6 mg/dL (0.1-1.0); CALCIUM, TOTAL 8.7 mg/dL (8.8-10.5); CARBON DIOXIDE 31 mmol/L (22-29); CHLORIDE 106 mmol/L (98-107); GLOMERULAR FILTR. RATE CALC > 60 mL/min (>60); POTASSIUM 4.6 mmol/L (3.5-5.1); SODIUM SERUM 145 mmol/L (136-145); TOTAL PROTEIN, SERUM 6.5 g/dL (6.4-8.2); UREA NITROGEN, BLOOD 12 mg/dL (7-18)
[2016-08-11] MEDS: AMOX TR/POT CLAV 875 MG/125 MG TABLET PO SCH ×2 (09:56→16:20)
[2016-08-11 16:23] VITALS: BP 117/65
[2016-08-11] MEDS: DIVALPROEX SODIUM 250 MG DR TABLET PO SCH (20:25)
[2016-08-12] MEDS: LEVOTHYROXINE SODIUM 100 MCG TABLET PO SCH (06:21)
[2016-08-12 06:41] VITALS: BP 131/72
[2016-08-12 08:42] VITALS: BP 125/64
[2016-08-12] MEDS: FOLIC ACID 1 MG TABLET PO SCH (08:43)
[2016-08-12] MEDS: THIAMINE HCL 100 MG TABLET PO SCH ×2 (08:43→16:28)
[2016-08-12] MEDS: TRIHEXYPHENIDYL HCL 5 MG TABLET PO SCH ×3 (08:43→16:28)
[2016-08-12] MEDS: MULTIVITAMINS WITH MINERALS, THERAPEUTIC TABLET PO SCH (08:43)
[2016-08-12] MEDS: NALTREXONE HCL 50 MG TABLET PO SCH (08:44)
[2016-08-12] MEDS: GABAPENTIN 400 MG CAPSULE PO SCH ×3 (08:44→16:27)
[2016-08-12] MEDS: CloZAPine 100 MG TABLET PO SCH ×2 (08:44→20:49)
[2016-08-12] MEDS: AMOX TR/POT CLAV 875 MG/125 MG TABLET PO SCH ×2 (08:44→16:27)
[2016-08-12 16:16] VITALS: BP 107/62
[2016-08-12] MEDS: DIVALPROEX SODIUM 250 MG DR TABLET PO SCH (20:49)
[2016-08-13 05:59] VITALS: BP 106/61
[2016-08-13] MEDS: LEVOTHYROXINE SODIUM 100 MCG TABLET PO SCH (06:11)
[2016-08-13 08:55] VITALS: BP 103/64
[2016-08-13] MEDS: MULTIVITAMINS WITH MINERALS, THERAPEUTIC TABLET PO SCH (09:25)
[2016-08-13] MEDS: AMOX TR/POT CLAV 875 MG/125 MG TABLET PO SCH ×2 (09:25→16:20)
[2016-08-13] MEDS: FOLIC ACID 1 MG TABLET PO SCH (09:25)
[2016-08-13] MEDS: NALTREXONE HCL 50 MG TABLET PO SCH (09:25)
[2016-08-13] MEDS: CloZAPine 100 MG TABLET PO SCH ×2 (09:25→20:21)
[2016-08-13] MEDS: THIAMINE HCL 100 MG TABLET PO SCH ×2 (09:25→16:20)
[2016-08-13] MEDS: TRIHEXYPHENIDYL HCL 5 MG TABLET PO SCH ×3 (09:25→16:20)
[2016-08-13] MEDS: GABAPENTIN 400 MG CAPSULE PO SCH ×3 (09:25→16:20)
[2016-08-13] MEDS: LORazepam 2 MG TABLET PO PRN (10:07)
[2016-08-13] MEDS: DIVALPROEX SODIUM 250 MG DR TABLET PO SCH (20:21)
[2016-08-14] MEDS: LORazepam 2 MG TABLET PO PRN ×2 (02:44→10:14)
[2016-08-14 02:45] VITALS: BP 143/89
[2016-08-14] MEDS: LEVOTHYROXINE SODIUM 100 MCG TABLET PO SCH (06:11)
[2016-08-14 08:24] VITALS: BP 132/84
[2016-08-14] MEDS: AMOX TR/POT CLAV 875 MG/125 MG TABLET PO SCH ×2 (09:02→17:08)
[2016-08-14] MEDS: MULTIVITAMINS WITH MINERALS, THERAPEUTIC TABLET PO SCH (09:03)
[2016-08-14] MEDS: CloZAPine 100 MG TABLET PO SCH ×2 (09:03→17:08)
[2016-08-14] MEDS: GABAPENTIN 400 MG CAPSULE PO SCH (09:03)
[2016-08-14] MEDS: THIAMINE HCL 100 MG TABLET PO SCH ×2 (09:03→17:08)
[2016-08-14] MEDS: FOLIC ACID 1 MG TABLET PO SCH (09:03)
[2016-08-14] MEDS: TRIHEXYPHENIDYL HCL 5 MG TABLET PO SCH ×3 (09:03→17:08)
[2016-08-14] MEDS: NALTREXONE HCL 50 MG TABLET PO SCH (09:03)
[2016-08-14] MEDS: OLANZapine 5 MG RAPDIS TABLET PO PRN (10:29)
[2016-08-14] MEDS ORDERED: FluPHENAZine HCL 2.5 MG/ML INJ IM ONE (11:30)
[2016-08-14] MEDS: GABAPENTIN 300 MG CAPSULE PO SCH ×2 (13:14→17:08)
[2016-08-14 16:22] VITALS: BP 138/90
[2016-08-14] MEDS: DIVALPROEX SODIUM 250 MG DR TABLET PO SCH (20:28)
[2016-08-15] MEDS: LEVOTHYROXINE SODIUM 100 MCG TABLET PO SCH (06:38)
[2016-08-15 07:46] LABS: BASOPHILS % (AUTO) 0.5 % (0.0-2.0); EOSINOPHILS % (AUTO) 0.9 % (1.0-6.0); HEMATOCRIT 40.4 % (41-53); HEMOGLOBIN 13.5 g/dL (13.5-17.5); LYMPHOCYTES # (AUTO) 1.9 K/uL (1.0-4.8); LYMPHOCYTES % (AUTO) 36.8 % (22.0-44.0); MEAN CORPUSCULAR HEMOGLOBIN 32.6 pg (26.0-34.0); MEAN CORPUSCULAR HGB CONC 33.5 G/dL (31.0-37.0); MEAN CORPUSCULAR VOLUME 97 fL (80-100); MONOCYTES # (AUTO) 0.4 K/uL (0.1-1.0); MONOCYTES % (AUTO) 7.8 % (2.0-9.0); NEUTROPHILS # (AUTO) 2.8 K/uL (1.8-7.7); PLATELET COUNT (AUTO) 288 K/uL (150-450); RED BLOOD CELL COUNT(AUTO) 4.16 MIL/uL (4.50-5.90); RED CELL DISTRIBUTION WIDTH 12.6 % (11.5-14.5); WHITE BLOOD COUNT (AUTO) 5.1 K/uL (4.5-11.0)
[2016-08-15 08:22] LABS: ALANINE AMINOTRANSFERASE 33 U/L (12-78); ALBUMIN 3.5 g/dL (3.4-5.0); ANION GAP 7 mmol/L (8-16); ASPARTATE AMINOTRANSFERASE 23 U/L (15-37); BILIRUBIN,TOTAL 0.5 mg/dL (0.1-1.0); CARBON DIOXIDE 31 mmol/L (22-29); CHLORIDE 104 mmol/L (98-107); CREATININE 0.84 mg/dL (0.60-1.30); GLOMERULAR FILTR. RATE CALC > 60 mL/min (>60); POTASSIUM 4.2 mmol/L (3.5-5.1); SODIUM SERUM 142 mmol/L (136-145); TOTAL PROTEIN, SERUM 7.1 g/dL (6.4-8.2); UREA NITROGEN, BLOOD 15 mg/dL (7-18)
[2016-08-15] MEDS: FOLIC ACID 1 MG TABLET PO SCH (09:34)
[2016-08-15] MEDS: NALTREXONE HCL 50 MG TABLET PO SCH (09:34)
[2016-08-15] MEDS: AMOX TR/POT CLAV 875 MG/125 MG TABLET PO SCH ×2 (09:34→17:17)
[2016-08-15] MEDS: CloZAPine 100 MG TABLET PO SCH ×2 (09:34→17:20)
[2016-08-15] MEDS: THIAMINE HCL 100 MG TABLET PO SCH ×2 (09:34→17:17)
[2016-08-15] MEDS: TRIHEXYPHENIDYL HCL 5 MG TABLET PO SCH ×3 (09:34→17:17)
[2016-08-15] MEDS: MULTIVITAMINS WITH MINERALS, THERAPEUTIC TABLET PO SCH (09:34)
[2016-08-15] MEDS: GABAPENTIN 300 MG CAPSULE PO SCH ×3 (09:35→17:17)
[2016-08-15] MEDS: DIVALPROEX SODIUM 250 MG DR TABLET PO SCH (20:44)
[2016-08-16 06:08] VITALS: BP 108/71
[2016-08-16 06:10] VITALS: BP 108/71
[2016-08-16] MEDS: LEVOTHYROXINE SODIUM 100 MCG TABLET PO SCH (07:22)
[2016-08-16 08:17] LABS: BASOPHILS % (AUTO) 0.6 % (0.0-2.0); EOSINOPHILS % (AUTO) 1.7 % (1.0-6.0); HEMATOCRIT 39.1 % (41-53); HEMOGLOBIN 13.2 g/dL (13.5-17.5); LYMPHOCYTES # (AUTO) 2.4 K/uL (1.0-4.8); LYMPHOCYTES % (AUTO) 48.3 % (22.0-44.0); MEAN CORPUSCULAR HEMOGLOBIN 32.9 pg (26.0-34.0); MEAN CORPUSCULAR HGB CONC 33.8 G/dL (31.0-37.0); MEAN CORPUSCULAR VOLUME 97 fL (80-100); MONOCYTES # (AUTO) 0.4 K/uL (0.1-1.0); MONOCYTES % (AUTO) 7.8 % (2.0-9.0); NEUTROPHILS # (AUTO) 2.1 K/uL (1.8-7.7); NEUTROPHILS % (AUTO) 41.6 % (40.0-70.0); PLATELET COUNT (AUTO) 282 K/uL (150-450); RED BLOOD CELL COUNT(AUTO) 4.01 MIL/uL (4.50-5.90); RED CELL DISTRIBUTION WIDTH 12.8 % (11.5-14.5)
[2016-08-16 08:45] VITALS: BP 107/60
[2016-08-16] MEDS: AMOX TR/POT CLAV 875 MG/125 MG TABLET PO SCH ×2 (08:59→16:10)
[2016-08-16] MEDS: CloZAPine 100 MG TABLET PO SCH ×2 (08:59→16:10)
[2016-08-16] MEDS: TRIHEXYPHENIDYL HCL 5 MG TABLET PO SCH ×2 (08:59→12:32)
[2016-08-16] MEDS: THIAMINE HCL 100 MG TABLET PO SCH ×2 (08:59→16:10)
[2016-08-16] MEDS: GABAPENTIN 300 MG CAPSULE PO SCH ×3 (08:59→16:10)
[2016-08-16] MEDS: MULTIVITAMINS WITH MINERALS, THERAPEUTIC TABLET PO SCH (08:59)
[2016-08-16] MEDS: FOLIC ACID 1 MG TABLET PO SCH (08:59)
[2016-08-16] MEDS: NALTREXONE HCL 50 MG TABLET PO SCH (09:00)
[2016-08-16 16:09] VITALS: BP 108/72
[2016-08-16 16:34] VITALS: BP 108/72
[2016-08-16] MEDS: LACTULOSE 20 GM/30 ML SOLUTION UDCUP PO SCH (17:42)
[2016-08-16] MEDS: DIVALPROEX SODIUM 250 MG DR TABLET PO SCH (20:33)
[2016-08-17] MEDS: LEVOTHYROXINE SODIUM 100 MCG TABLET PO SCH (06:36)
[2016-08-17 08:15] VITALS: BP 106/70
[2016-08-17] MEDS: MULTIVITAMINS WITH MINERALS, THERAPEUTIC TABLET PO SCH (09:12)
[2016-08-17] MEDS: FOLIC ACID 1 MG TABLET PO SCH (09:12)
[2016-08-17] MEDS: GABAPENTIN 300 MG CAPSULE PO SCH ×3 (09:12→16:52)
[2016-08-17] MEDS: CloZAPine 100 MG TABLET PO SCH ×2 (09:12→16:52)
[2016-08-17] MEDS: THIAMINE HCL 100 MG TABLET PO SCH ×2 (09:12→16:52)
[2016-08-17] MEDS: LACTULOSE 20 GM/30 ML SOLUTION UDCUP PO SCH ×2 (09:12→16:52)
[2016-08-17] MEDS: AMOX TR/POT CLAV 875 MG/125 MG TABLET PO SCH ×2 (09:12→18:22)
[2016-08-17] MEDS: NALTREXONE HCL 50 MG TABLET PO SCH (09:12)
[2016-08-17] MEDS: LORazepam 2 MG TABLET PO PRN (10:44)
[2016-08-17 16:39] VITALS: BP 127/74
[2016-08-17] MEDS: DIVALPROEX SODIUM 250 MG DR TABLET PO SCH (21:08)
[2016-08-18 00:15] VITALS: BP 125/74
[2016-08-18] MEDS: LEVOTHYROXINE SODIUM 100 MCG TABLET PO SCH (06:29)
[2016-08-18 08:00] VITALS: BP 125/76
[2016-08-18] MEDS: NALTREXONE HCL 50 MG TABLET PO SCH (09:10)
[2016-08-18] MEDS: THIAMINE HCL 100 MG TABLET PO SCH ×2 (09:10→18:39)
[2016-08-18] MEDS: AMOX TR/POT CLAV 875 MG/125 MG TABLET PO SCH ×2 (09:10→18:39)
[2016-08-18] MEDS: FOLIC ACID 1 MG TABLET PO SCH (09:10)
[2016-08-18] MEDS: LACTULOSE 20 GM/30 ML SOLUTION UDCUP PO SCH ×2 (09:10→18:38)
[2016-08-18] MEDS: CloZAPine 100 MG TABLET PO SCH ×2 (09:10→18:39)
[2016-08-18] MEDS: GABAPENTIN 300 MG CAPSULE PO SCH ×3 (09:10→18:38)
[2016-08-18] MEDS: MULTIVITAMINS WITH MINERALS, THERAPEUTIC TABLET PO SCH (09:10)
[2016-08-18] MEDS ORDERED: AMOX1TAB16 PO (10:06)
[2016-08-18] MEDS ORDERED: GABA-531 PO (10:06)
[2016-08-18] MEDS: LORazepam 2 MG TABLET PO PRN (10:39)
[2016-08-18 16:12] VITALS: BP 121/69
[2016-08-18] MEDS: DIVALPROEX SODIUM 250 MG DR TABLET PO SCH (21:54)
[2016-08-18] MEDS: ZOLPIDEM TARTRATE 10 MG TABLET PO PRN (22:02)
[2016-08-19 03:04] VITALS: BP 138/76
[2016-08-19] MEDS: LEVOTHYROXINE SODIUM 100 MCG TABLET PO SCH (06:28)
[2016-08-19 08:49] VITALS: BP 124/70
[2016-08-19] MEDS: MULTIVITAMINS WITH MINERALS, THERAPEUTIC TABLET PO SCH (10:11)
[2016-08-19] MEDS: LACTULOSE 20 GM/30 ML SOLUTION UDCUP PO SCH ×2 (10:11→17:34)
[2016-08-19] MEDS: THIAMINE HCL 100 MG TABLET PO SCH (10:12)
[2016-08-19] MEDS: GABAPENTIN 300 MG CAPSULE PO SCH ×3 (10:12→17:32)
[2016-08-19] MEDS: FOLIC ACID 1 MG TABLET PO SCH (10:12)
[2016-08-19] MEDS: NALTREXONE HCL 50 MG TABLET PO SCH (10:12)
[2016-08-19] MEDS: AMOX TR/POT CLAV 875 MG/125 MG TABLET PO SCH ×2 (10:12→17:33)
[2016-08-19] MEDS: CloZAPine 100 MG TABLET PO SCH ×2 (10:12→17:33)
[2016-08-19] MEDS: LORazepam 2 MG TABLET PO PRN ×2 (10:47→17:39)
[2016-08-19 16:04] LABS: CLOZAPINE 131 ng/mL (350-650); CLOZAPINE & NORCLOZAPINE 177 ng/mL; NORCLOZAPINE 46 ng/mL (Not Estab.)
[2016-08-19 16:13] VITALS: BP 116/67
[2016-08-19] MEDS: DIVALPROEX SODIUM 250 MG DR TABLET PO SCH (21:06)
[2016-08-19] MEDS: ZOLPIDEM TARTRATE 10 MG TABLET PO PRN (21:06)
[2016-08-20 01:39] VITALS: BP 124/76
[2016-08-20] MEDS: LEVOTHYROXINE SODIUM 100 MCG TABLET PO SCH (06:25)
[2016-08-20] MEDS: CloZAPine 100 MG TABLET PO SCH ×2 (08:55→17:03)
[2016-08-20] MEDS: GABAPENTIN 300 MG CAPSULE PO SCH ×3 (08:55→17:03)
[2016-08-20] MEDS: LACTULOSE 20 GM/30 ML SOLUTION UDCUP PO SCH ×2 (08:55→17:03)
[2016-08-20] MEDS: AMOX TR/POT CLAV 875 MG/125 MG TABLET PO SCH ×2 (08:55→17:03)
[2016-08-20] MEDS: NALTREXONE HCL 50 MG TABLET PO SCH (08:55)
[2016-08-20] MEDS: MULTIVITAMINS WITH MINERALS, THERAPEUTIC TABLET PO SCH (08:55)
[2016-08-20 10:01] VITALS: BP 123/74
[2016-08-20 16:23] VITALS: BP 110/69
[2016-08-20] MEDS: LORazepam 2 MG TABLET PO PRN (17:03)
[2016-08-20] MEDS: ZOLPIDEM TARTRATE 10 MG TABLET PO PRN (20:31)
[2016-08-20] MEDS: DIVALPROEX SODIUM 250 MG DR TABLET PO SCH (20:32)
[2016-08-21] MEDS: LEVOTHYROXINE SODIUM 100 MCG TABLET PO SCH (06:48)
[2016-08-21 07:06] VITALS: BP 112/64
[2016-08-21 08:48] VITALS: BP 103/60
[2016-08-21] MEDS: GABAPENTIN 300 MG CAPSULE PO SCH ×3 (09:18→16:53)
[2016-08-21] MEDS: CloZAPine 100 MG TABLET PO SCH ×2 (09:18→16:53)
[2016-08-21] MEDS: NALTREXONE HCL 50 MG TABLET PO SCH (09:18)
[2016-08-21] MEDS: AMOX TR/POT CLAV 875 MG/125 MG TABLET PO SCH (09:18)
[2016-08-21] MEDS: MULTIVITAMINS WITH MINERALS, THERAPEUTIC TABLET PO SCH (09:18)
[2016-08-21] MEDS: LACTULOSE 20 GM/30 ML SOLUTION UDCUP PO SCH (09:18)
[2016-08-21 16:18] VITALS: BP 118/66
[2016-08-21] MEDS: ZOLPIDEM TARTRATE 10 MG TABLET PO PRN (20:31)
[2016-08-21] MEDS: DIVALPROEX SODIUM 250 MG DR TABLET PO SCH (20:32)
[2016-08-22 00:20] VITALS: BP 104/75
[2016-08-22] MEDS: LEVOTHYROXINE SODIUM 100 MCG TABLET PO SCH (06:07)
[2016-08-22 09:34] VITALS: BP 118/68
[2016-08-22] MEDS: GABAPENTIN 300 MG CAPSULE PO SCH ×3 (10:01→16:21)
[2016-08-22] MEDS: MULTIVITAMINS WITH MINERALS, THERAPEUTIC TABLET PO SCH (10:02)
[2016-08-22] MEDS: NALTREXONE HCL 50 MG TABLET PO SCH (10:02)
[2016-08-22] MEDS: CloZAPine 100 MG TABLET PO SCH ×2 (10:02→16:20)
[2016-08-22] MEDS: LORazepam 2 MG TABLET PO PRN ×2 (10:41→18:06)
[2016-08-22 16:19] VITALS: BP 126/80
[2016-08-22] MEDS: DIVALPROEX SODIUM 250 MG DR TABLET PO SCH (20:25)
[2016-08-23 02:00] VITALS: BP 125/70
[2016-08-23] MEDS: LEVOTHYROXINE SODIUM 100 MCG TABLET PO SCH (06:53)
[2016-08-23 09:06] VITALS: BP 106/66
[2016-08-23] MEDS: CloZAPine 100 MG TABLET PO SCH ×2 (09:43→16:25)
[2016-08-23] MEDS: NALTREXONE HCL 50 MG TABLET PO SCH (09:43)
[2016-08-23] MEDS: GABAPENTIN 300 MG CAPSULE PO SCH ×3 (09:43→16:25)
[2016-08-23] MEDS: MULTIVITAMINS WITH MINERALS, THERAPEUTIC TABLET PO SCH (09:43)
[2016-08-23] MEDS: LORazepam 2 MG TABLET PO PRN ×2 (10:25→17:26)
[2016-08-23] MEDS: GuaiFENesin/D-METHORPHAN [SUGAR-FREE] 200-20MG/10 ML SYRUP UDCUP PO PRN (12:12)
[2016-08-23 16:21] VITALS: BP 120/63
[2016-08-23] MEDS: DIVALPROEX SODIUM 250 MG DR TABLET PO SCH (20:21)
[2016-08-24 05:57] VITALS: BP 110/61
[2016-08-24] MEDS: LEVOTHYROXINE SODIUM 100 MCG TABLET PO SCH (06:24)
[2016-08-24 07:51] LABS: BASOPHILS # (AUTO) 0.03 K/uL (0.00-0.20); BASOPHILS % (AUTO) 0.7 % (0.0-2.0); EOSINOPHILS # (AUTO) 0.12 K/uL (0.00-0.70); EOSINOPHILS % (AUTO) 2.27 % (1.0-6.0); HEMATOCRIT 37.8 % (41-53); HEMOGLOBIN 13.2 g/dL (13.5-17.5); LYMPHOCYTES # (AUTO) 2.6 K/uL (1.0-4.8); LYMPHOCYTES % (AUTO) 48.7 % (22.0-44.0); MEAN CORPUSCULAR HEMOGLOBIN 33.3 pg (26.0-34.0); MEAN CORPUSCULAR HGB CONC 34.8 G/dL (31.0-37.0); MEAN CORPUSCULAR VOLUME 96 fL (80-100); MONOCYTES # (AUTO) 0.4 K/uL (0.1-1.0); MONOCYTES % (AUTO) 7.5 % (2.0-9.0); NEUTROPHILS # (AUTO) 2.2 K/uL (1.8-7.7); NEUTROPHILS % (AUTO) 40.9 % (40.0-70.0); PLATELET COUNT (AUTO) 305 K/uL (150-450); RED BLOOD CELL COUNT(AUTO) 3.95 MIL/uL (4.50-5.90); RED CELL DISTRIBUTION WIDTH 12.5 % (11.5-14.5); WHITE BLOOD COUNT (AUTO) 5.3 K/uL (4.5-11.0)
[2016-08-24 08:26] VITALS: BP 119/82
[2016-08-24] MEDS: NALTREXONE HCL 50 MG TABLET PO SCH (09:34)
[2016-08-24] MEDS: MULTIVITAMINS WITH MINERALS, THERAPEUTIC TABLET PO SCH (09:34)
[2016-08-24] MEDS: GABAPENTIN 300 MG CAPSULE PO SCH ×3 (09:34→17:03)
[2016-08-24] MEDS: CloZAPine 100 MG TABLET PO SCH ×2 (09:34→17:04)
[2016-08-24] MEDS: LORazepam 2 MG TABLET PO PRN (09:49)
[2016-08-24 16:16] VITALS: BP 132/88
[2016-08-24] MEDS: DIVALPROEX SODIUM 250 MG DR TABLET PO SCH (20:11)
[2016-08-25 06:14] VITALS: BP 113/72
[2016-08-25] MEDS: LEVOTHYROXINE SODIUM 100 MCG TABLET PO SCH (06:33)
[2016-08-25] MEDS: MULTIVITAMINS WITH MINERALS, THERAPEUTIC TABLET PO SCH (09:37)
[2016-08-25] MEDS: CloZAPine 100 MG TABLET PO SCH ×2 (09:37→16:25)
[2016-08-25] MEDS: NALTREXONE HCL 50 MG TABLET PO SCH (09:37)
[2016-08-25] MEDS: GABAPENTIN 300 MG CAPSULE PO SCH ×3 (09:37→16:25)
[2016-08-25 09:59] VITALS: BP 123/66
[2016-08-25] MEDS: LORazepam 2 MG TABLET PO PRN (12:26)
[2016-08-25 16:17] VITALS: BP 112/77
[2016-08-25] MEDS: DIVALPROEX SODIUM 250 MG DR TABLET PO SCH (20:45)
[2016-08-26] MEDS: LEVOTHYROXINE SODIUM 100 MCG TABLET PO SCH (06:36)
[2016-08-26 08:45] VITALS: BP 114/86
[2016-08-26] MEDS: NALTREXONE HCL 50 MG TABLET PO SCH (09:15)
[2016-08-26] MEDS: CloZAPine 100 MG TABLET PO SCH ×2 (09:15→16:12)
[2016-08-26] MEDS: GABAPENTIN 300 MG CAPSULE PO SCH ×3 (09:15→16:12)
[2016-08-26] MEDS: MULTIVITAMINS WITH MINERALS, THERAPEUTIC TABLET PO SCH (09:15)
[2016-08-26 16:45] VITALS: BP 120/77
[2016-08-26] MEDS: LORazepam 2 MG TABLET PO PRN (18:48)
[2016-08-26] MEDS: DIVALPROEX SODIUM 250 MG DR TABLET PO SCH (20:24)
[2016-08-27] MEDS: LEVOTHYROXINE SODIUM 100 MCG TABLET PO SCH (06:39)
[2016-08-27 08:24] VITALS: BP 123/68
[2016-08-27] MEDS: CloZAPine 100 MG TABLET PO SCH ×2 (08:40→16:27)
[2016-08-27] MEDS: MULTIVITAMINS WITH MINERALS, THERAPEUTIC TABLET PO SCH (08:40)
[2016-08-27] MEDS: NALTREXONE HCL 50 MG TABLET PO SCH (08:40)
[2016-08-27] MEDS: GABAPENTIN 300 MG CAPSULE PO SCH ×3 (08:40→16:27)
[2016-08-27] MEDS: LORazepam 2 MG TABLET PO PRN ×3 (09:13→18:26)
[2016-08-27] MEDS: PHENYLEPHRINE/SHK LV/MIN OIL/PET 57 GM OINTMENT TP PRN (09:52)
[2016-08-27 16:25] VITALS: BP 130/64
[2016-08-27] MEDS: LACTULOSE 20 GM/30 ML SOLUTION UDCUP PO SCH (16:27)
[2016-08-27] MEDS: DIVALPROEX SODIUM 250 MG DR TABLET PO SCH (20:05)
[2016-08-27] MEDS: MAG HYDROX/AL HYDROX/SIMETH ES 30 ML SUSPENSION UDCUP PO PRN (20:07)
[2016-08-28] MEDS: LEVOTHYROXINE SODIUM 100 MCG TABLET PO SCH (06:13)
[2016-08-28 06:56] VITALS: BP 112/61
[2016-08-28] MEDS: LACTULOSE 20 GM/30 ML SOLUTION UDCUP PO SCH ×2 (09:08→16:51)
[2016-08-28] MEDS: CloZAPine 100 MG TABLET PO SCH ×4 (09:08→18:30)
[2016-08-28] MEDS: GABAPENTIN 300 MG CAPSULE PO SCH ×3 (09:08→16:52)
[2016-08-28] MEDS: MULTIVITAMINS WITH MINERALS, THERAPEUTIC TABLET PO SCH (09:12)
[2016-08-28] MEDS: NALTREXONE HCL 50 MG TABLET PO SCH (10:08)
[2016-08-28 16:36] VITALS: BP 115/79
[2016-08-28] MEDS: DIVALPROEX SODIUM 250 MG DR TABLET PO SCH (21:27)
[2016-08-29 02:28] VITALS: BP 123/82
[2016-08-29] MEDS: LEVOTHYROXINE SODIUM 100 MCG TABLET PO SCH (06:14)
[2016-08-29 08:00] VITALS: BP 108/75
[2016-08-29] MEDS: MULTIVITAMINS WITH MINERALS, THERAPEUTIC TABLET PO SCH (09:00)
[2016-08-29] MEDS: GABAPENTIN 300 MG CAPSULE PO SCH ×3 (09:00→17:35)
[2016-08-29] MEDS: LACTULOSE 20 GM/30 ML SOLUTION UDCUP PO SCH ×2 (09:00→17:35)
[2016-08-29] MEDS: CloZAPine 100 MG TABLET PO SCH ×2 (09:00→17:35)
[2016-08-29] MEDS: NALTREXONE HCL 50 MG TABLET PO SCH (09:02)
[2016-08-29] MEDS: LORazepam 2 MG TABLET PO PRN ×2 (11:54→19:05)
[2016-08-29] MEDS: OLANZapine 5 MG RAPDIS TABLET PO PRN (11:54)
[2016-08-29 16:46] VITALS: BP 116/67
[2016-08-29] MEDS: DIVALPROEX SODIUM 250 MG DR TABLET PO SCH (20:37)
[2016-08-30 01:17] VITALS: BP 113/68
[2016-08-30] MEDS: LEVOTHYROXINE SODIUM 100 MCG TABLET PO SCH (07:06)
[2016-08-30 09:12] VITALS: BP 119/71
[2016-08-30] MEDS: GABAPENTIN 300 MG CAPSULE PO SCH ×3 (09:19→17:20)
[2016-08-30] MEDS: CloZAPine 100 MG TABLET PO SCH ×2 (09:19→17:20)
[2016-08-30] MEDS: MULTIVITAMINS WITH MINERALS, THERAPEUTIC TABLET PO SCH (09:19)
[2016-08-30] MEDS: NALTREXONE HCL 50 MG TABLET PO SCH (09:19)
[2016-08-30] MEDS: LACTULOSE 20 GM/30 ML SOLUTION UDCUP PO SCH ×2 (09:28→17:20)
[2016-08-30] MEDS: LORazepam 2 MG TABLET PO PRN (11:54)
[2016-08-30] MEDS: OLANZapine 5 MG RAPDIS TABLET PO PRN (14:10)
[2016-08-30 16:44] VITALS: BP 124/70
[2016-08-30] MEDS: DIVALPROEX SODIUM 250 MG DR TABLET PO SCH (21:18)
[2016-08-31 02:30] VITALS: BP 125/76
[2016-08-31] MEDS: LEVOTHYROXINE SODIUM 100 MCG TABLET PO SCH (06:37)
[2016-08-31 08:19] VITALS: BP 124/72
[2016-08-31] MEDS: GABAPENTIN 300 MG CAPSULE PO SCH ×3 (09:40→16:16)
[2016-08-31] MEDS: MULTIVITAMINS WITH MINERALS, THERAPEUTIC TABLET PO SCH (09:40)
[2016-08-31] MEDS: LACTULOSE 20 GM/30 ML SOLUTION UDCUP PO SCH ×2 (09:40→16:16)
[2016-08-31] MEDS: CloZAPine 100 MG TABLET PO SCH ×2 (09:41→16:15)
[2016-08-31] MEDS: NALTREXONE HCL 50 MG TABLET PO SCH (09:41)
[2016-08-31] MEDS: LORazepam 2 MG TABLET PO PRN ×2 (12:14→16:15)
[2016-08-31] MEDS: OLANZapine 5 MG RAPDIS TABLET PO PRN (14:26)
[2016-08-31 16:00] VITALS: BP 114/71
[2016-08-31] MEDS: DIVALPROEX SODIUM 250 MG DR TABLET PO SCH (20:29)
[2016-09-01] MEDS: LEVOTHYROXINE SODIUM 100 MCG TABLET PO SCH (05:49)
[2016-09-01 08:24] LABS: BASOPHILS # (AUTO) 0.02 K/uL (0.00-0.20); BASOPHILS % (AUTO) 0.5 % (0.0-2.0); EOSINOPHILS # (AUTO) 0.09 K/uL (0.00-0.70); EOSINOPHILS % (AUTO) 1.85 % (1.0-6.0); HEMATOCRIT 38.1 % (41-53); HEMOGLOBIN 13.1 g/dL (13.5-17.5); LYMPHOCYTES # (AUTO) 2.4 K/uL (1.0-4.8); LYMPHOCYTES % (AUTO) 46.8 % (22.0-44.0); MEAN CORPUSCULAR HEMOGLOBIN 32.8 pg (26.0-34.0); MEAN CORPUSCULAR HGB CONC 34.4 G/dL (31.0-37.0); MEAN CORPUSCULAR VOLUME 96 fL (80-100); MONOCYTES # (AUTO) 0.5 K/uL (0.1-1.0); MONOCYTES % (AUTO) 9.2 % (2.0-9.0); NEUTROPHILS # (AUTO) 2.1 K/uL (1.8-7.7); NEUTROPHILS % (AUTO) 41.7 % (40.0-70.0); PLATELET COUNT (AUTO) 280 K/uL (150-450); RED BLOOD CELL COUNT(AUTO) 3.99 MIL/uL (4.50-5.90); RED CELL DISTRIBUTION WIDTH 13.1 % (11.5-14.5); WHITE BLOOD COUNT (AUTO) 5.1 K/uL (4.5-11.0)
[2016-09-01 09:02] VITALS: BP 105/82
[2016-09-01] MEDS: MULTIVITAMINS WITH MINERALS, THERAPEUTIC TABLET PO SCH (09:06)
[2016-09-01] MEDS: NALTREXONE HCL 50 MG TABLET PO SCH (09:07)
[2016-09-01] MEDS: CloZAPine 100 MG TABLET PO SCH ×2 (09:07→16:44)
[2016-09-01] MEDS: LACTULOSE 20 GM/30 ML SOLUTION UDCUP PO SCH ×2 (09:07→16:45)
[2016-09-01] MEDS: GABAPENTIN 300 MG CAPSULE PO SCH ×3 (09:07→16:44)
[2016-09-01] MEDS: LORazepam 2 MG TABLET PO PRN ×3 (09:14→18:27)
[2016-09-01 16:00] VITALS: BP 117/70
[2016-09-01] MEDS: OLANZapine 5 MG RAPDIS TABLET PO PRN (17:25)
[2016-09-01] MEDS: DIVALPROEX SODIUM 250 MG DR TABLET PO SCH (20:08)
[2016-09-02 06:12] VITALS: BP 118/67
[2016-09-02] MEDS: LEVOTHYROXINE SODIUM 100 MCG TABLET PO SCH (06:50)
[2016-09-02] MEDS: MULTIVITAMINS WITH MINERALS, THERAPEUTIC TABLET PO SCH (09:17)
[2016-09-02] MEDS: LACTULOSE 20 GM/30 ML SOLUTION UDCUP PO SCH ×3 (09:17→16:13)
[2016-09-02] MEDS: GABAPENTIN 300 MG CAPSULE PO SCH ×3 (09:18→16:13)
[2016-09-02] MEDS: NALTREXONE HCL 50 MG TABLET PO SCH (09:18)
[2016-09-02] MEDS: CloZAPine 100 MG TABLET PO SCH ×2 (09:18→16:13)
[2016-09-02 10:10] VITALS: BP 126/66
[2016-09-02] MEDS: LORazepam 2 MG TABLET PO PRN ×2 (10:54→17:21)
[2016-09-02 11:15] VITALS: BP 122/64
[2016-09-02 16:08] VITALS: BP 118/68
[2016-09-02 17:15] VITALS: BP 116/80
[2016-09-02] MEDS: OLANZapine 5 MG RAPDIS TABLET PO PRN (18:46)
[2016-09-02] MEDS: DIVALPROEX SODIUM 250 MG DR TABLET PO SCH (20:21)
[2016-09-03 06:34] VITALS: BP 121/84
[2016-09-03] MEDS: LEVOTHYROXINE SODIUM 100 MCG TABLET PO SCH (06:43)
[2016-09-03] MEDS: MULTIVITAMINS WITH MINERALS, THERAPEUTIC TABLET PO SCH (08:42)
[2016-09-03] MEDS: LACTULOSE 20 GM/30 ML SOLUTION UDCUP PO SCH ×3 (08:42→17:20)
[2016-09-03] MEDS: GABAPENTIN 300 MG CAPSULE PO SCH ×3 (08:42→17:21)
[2016-09-03] MEDS: CloZAPine 100 MG TABLET PO SCH ×2 (08:43→17:21)
[2016-09-03] MEDS: LORazepam 2 MG TABLET PO PRN ×2 (08:43→18:39)
[2016-09-03] MEDS: NALTREXONE HCL 50 MG TABLET PO SCH (08:56)
[2016-09-03 09:02] VITALS: BP 111/70
[2016-09-03 16:21] VITALS: BP 133/78
[2016-09-03] MEDS: OLANZapine 5 MG RAPDIS TABLET PO PRN (19:31)
[2016-09-03] MEDS: DIVALPROEX SODIUM 250 MG DR TABLET PO SCH (21:38)
[2016-09-04 00:27] VITALS: BP 117/67
[2016-09-04] MEDS: LEVOTHYROXINE SODIUM 100 MCG TABLET PO SCH (07:09)
[2016-09-04] MEDS: NALTREXONE HCL 50 MG TABLET PO SCH (09:32)
[2016-09-04] MEDS: MULTIVITAMINS WITH MINERALS, THERAPEUTIC TABLET PO SCH (09:32)
[2016-09-04] MEDS: GABAPENTIN 300 MG CAPSULE PO SCH ×3 (09:33→17:00)
[2016-09-04] MEDS: CloZAPine 100 MG TABLET PO SCH ×2 (09:33→17:00)
[2016-09-04] MEDS: LACTULOSE 20 GM/30 ML SOLUTION UDCUP PO SCH ×3 (09:35→17:00)
[2016-09-04] MEDS: LORazepam 2 MG TABLET PO PRN ×2 (10:27→19:11)
[2016-09-04 16:00] VITALS: BP 128/62
[2016-09-04] MEDS: OLANZapine 5 MG RAPDIS TABLET PO PRN (20:01)
[2016-09-04] MEDS: DIVALPROEX SODIUM 250 MG DR TABLET PO SCH (20:01)
[2016-09-04] MEDS: ZOLPIDEM TARTRATE 10 MG TABLET PO PRN (20:57)
[2016-09-05] MEDS: LEVOTHYROXINE SODIUM 100 MCG TABLET PO SCH (06:19)
[2016-09-05 06:33] VITALS: BP 125/65
[2016-09-05] MEDS: CloZAPine 100 MG TABLET PO SCH ×2 (09:18→16:16)
[2016-09-05] MEDS: MULTIVITAMINS WITH MINERALS, THERAPEUTIC TABLET PO SCH (09:18)
[2016-09-05] MEDS: NALTREXONE HCL 50 MG TABLET PO SCH (09:18)
[2016-09-05] MEDS: GABAPENTIN 300 MG CAPSULE PO SCH ×3 (09:18→16:16)
[2016-09-05] MEDS: LACTULOSE 20 GM/30 ML SOLUTION UDCUP PO SCH ×3 (09:18→16:16)
[2016-09-05 10:11] LABS: CHOL/HDL RATIO 2.6 (4.2-7.3); CREATINE KINASE, TOTAL 53 U/L (39-308); THYROID STIMULATING HORMONE 0.54 uIU/mL (0.36-3.74)
[2016-09-05] MEDS: OLANZapine 5 MG RAPDIS TABLET PO PRN ×2 (11:19→19:24)
[2016-09-05] MEDS: LORazepam 2 MG TABLET PO PRN ×2 (11:19→16:04)
[2016-09-05 18:04] VITALS: BP 110/68
[2016-09-05] MEDS: DIVALPROEX SODIUM 250 MG DR TABLET PO SCH (21:07)
[2016-09-05] MEDS: ZOLPIDEM TARTRATE 10 MG TABLET PO PRN (22:22)
[2016-09-06] MEDS: LEVOTHYROXINE SODIUM 100 MCG TABLET PO SCH (05:57)
[2016-09-06] MEDS: LACTULOSE 20 GM/30 ML SOLUTION UDCUP PO SCH ×3 (09:25→16:11)
[2016-09-06] MEDS: NALTREXONE HCL 50 MG TABLET PO SCH (09:26)
[2016-09-06] MEDS: CloZAPine 100 MG TABLET PO SCH ×2 (09:26→16:10)
[2016-09-06] MEDS: MULTIVITAMINS WITH MINERALS, THERAPEUTIC TABLET PO SCH (09:26)
[2016-09-06] MEDS: GABAPENTIN 300 MG CAPSULE PO SCH ×3 (09:26→16:11)
[2016-09-06 10:30] VITALS: BP 118/82
[2016-09-06] MEDS: LORazepam 2 MG TABLET PO PRN ×3 (10:33→19:10)
[2016-09-06] MEDS: OLANZapine 5 MG RAPDIS TABLET PO PRN ×2 (11:21→16:46)
[2016-09-06 16:14] VITALS: BP 120/86
[2016-09-06] MEDS: DIVALPROEX SODIUM 250 MG DR TABLET PO SCH (20:06)
[2016-09-06] MEDS: ZOLPIDEM TARTRATE 10 MG TABLET PO PRN (21:07)
[2016-09-07] MEDS: LEVOTHYROXINE SODIUM 100 MCG TABLET PO SCH (06:58)
[2016-09-07] MEDS ORDERED: ALBUTEROL SULFATE HFA 90 MCG/PUFF 8 GM INHALER IH PRN (08:15)
[2016-09-07 08:17] LABS: BASOPHILS % (AUTO) 0.4 % (0.0-2.0); EOSINOPHILS % (AUTO) 1.6 % (1.0-6.0); HEMATOCRIT 37.6 % (41-53); HEMOGLOBIN 12.7 g/dL (13.5-17.5); LYMPHOCYTES # (AUTO) 2.4 K/uL (1.0-4.8); LYMPHOCYTES % (AUTO) 35.9 % (22.0-44.0); MEAN CORPUSCULAR HEMOGLOBIN 32.6 pg (26.0-34.0); MEAN CORPUSCULAR HGB CONC 33.8 G/dL (31.0-37.0); MEAN CORPUSCULAR VOLUME 96 fL (80-100); MONOCYTES # (AUTO) 0.6 K/uL (0.1-1.0); MONOCYTES % (AUTO) 9.2 % (2.0-9.0); NEUTROPHILS # (AUTO) 3.5 K/uL (1.8-7.7); NEUTROPHILS % (AUTO) 52.9 % (40.0-70.0); PLATELET COUNT (AUTO) 253 K/uL (150-450); RED CELL DISTRIBUTION WIDTH 12.7 % (11.5-14.5); WHITE BLOOD COUNT (AUTO) 6.6 K/uL (4.5-11.0)
[2016-09-07 08:26] VITALS: BP 113/60
[2016-09-07] MEDS: GABAPENTIN 300 MG CAPSULE PO SCH ×3 (09:07→16:12)
[2016-09-07] MEDS: CloZAPine 100 MG TABLET PO SCH ×2 (09:07→16:12)
[2016-09-07] MEDS: NALTREXONE HCL 50 MG TABLET PO SCH (09:07)
[2016-09-07] MEDS: MULTIVITAMINS WITH MINERALS, THERAPEUTIC TABLET PO SCH (09:07)
[2016-09-07] MEDS: LACTULOSE 20 GM/30 ML SOLUTION UDCUP PO SCH ×3 (09:07→16:12)
[2016-09-07] MEDS: LORazepam 2 MG TABLET PO PRN ×2 (09:57→15:37)
[2016-09-07] MEDS: OLANZapine 5 MG RAPDIS TABLET PO PRN ×2 (10:23→16:50)
[2016-09-07 16:59] VITALS: BP 144/83
[2016-09-07] MEDS: DIVALPROEX SODIUM 250 MG DR TABLET PO SCH (20:53)
[2016-09-08] MEDS: OLANZapine 5 MG RAPDIS TABLET PO PRN ×2 (00:01→10:45)
[2016-09-08] MEDS: LORazepam 2 MG TABLET PO PRN ×3 (00:01→13:45)
[2016-09-08 01:09] VITALS: BP 128/87
[2016-09-08] MEDS: LEVOTHYROXINE SODIUM 100 MCG TABLET PO SCH (06:37)
[2016-09-08 08:54] VITALS: BP 104/60
[2016-09-08] MEDS: LACTULOSE 20 GM/30 ML SOLUTION UDCUP PO SCH ×3 (09:36→17:13)
[2016-09-08] MEDS: MULTIVITAMINS WITH MINERALS, THERAPEUTIC TABLET PO SCH (09:36)
[2016-09-08] MEDS: GABAPENTIN 300 MG CAPSULE PO SCH ×3 (09:36→17:13)
[2016-09-08] MEDS: CloZAPine 100 MG TABLET PO SCH ×2 (09:37→17:00)
[2016-09-08] MEDS: NALTREXONE HCL 50 MG TABLET PO SCH (09:37)
[2016-09-08 09:44] VITALS: BP 130/88
[2016-09-08] MEDS: NICOTINE 21 MG/24 HOUR PATCH TD SCH (13:19)
[2016-09-08 16:34] VITALS: BP 121/70
[2016-09-08] MEDS ORDERED: LORazepam 2 MG TABLET PO PRN (18:30)
[2016-09-08] MEDS: DIVALPROEX SODIUM 250 MG DR TABLET PO SCH (20:03)
[2016-09-08] MEDS: MAG HYDROX/AL HYDROX/SIMETH ES 30 ML SUSPENSION UDCUP PO PRN (23:44)
[2016-09-09 00:05] VITALS: BP 121/69
[2016-09-09] MEDS: ACETAMINOPHEN 325 MG TABLET PO PRN (00:07)
[2016-09-09] MEDS: PROMETHAZINE HCL 25 MG TABLET PO PRN (01:38)
[2016-09-09 02:23] VITALS: BP 119/69
[2016-09-09] MEDS: ZOLPIDEM TARTRATE 10 MG TABLET PO PRN (02:32)
[2016-09-09] MEDS: LEVOTHYROXINE SODIUM 100 MCG TABLET PO SCH (06:36)
[2016-09-09 08:14] VITALS: BP 102/55
[2016-09-09] MEDS: LACTULOSE 20 GM/30 ML SOLUTION UDCUP PO SCH ×3 (09:16→17:06)
[2016-09-09] MEDS: NICOTINE 21 MG/24 HOUR PATCH TD SCH (09:16)
[2016-09-09] MEDS: GABAPENTIN 300 MG CAPSULE PO SCH ×3 (09:16→17:06)
[2016-09-09] MEDS: CloZAPine 100 MG TABLET PO SCH ×2 (09:17→17:06)
[2016-09-09] MEDS: MULTIVITAMINS WITH MINERALS, THERAPEUTIC TABLET PO SCH (09:18)
[2016-09-09] MEDS: NALTREXONE HCL 50 MG TABLET PO SCH (09:18)
[2016-09-09] MEDS: LORazepam 0.5 MG TABLET PO PRN ×2 (13:06→17:09)
[2016-09-09] MEDS: OLANZapine 5 MG RAPDIS TABLET PO PRN (18:32)
[2016-09-09 19:45] VITALS: BP 103/67
[2016-09-09] MEDS: DIVALPROEX SODIUM 250 MG DR TABLET PO SCH (20:18)
[2016-09-10] MEDS: LEVOTHYROXINE SODIUM 100 MCG TABLET PO SCH (07:13)
[2016-09-10] MEDS: LACTULOSE 20 GM/30 ML SOLUTION UDCUP PO SCH ×3 (08:58→16:04)
[2016-09-10] MEDS: CloZAPine 100 MG TABLET PO SCH ×2 (08:58→16:04)
[2016-09-10] MEDS: GABAPENTIN 300 MG CAPSULE PO SCH ×3 (08:58→16:04)
[2016-09-10] MEDS: MULTIVITAMINS WITH MINERALS, THERAPEUTIC TABLET PO SCH (08:59)
[2016-09-10] MEDS: NALTREXONE HCL 50 MG TABLET PO SCH (08:59)
[2016-09-10] MEDS: NICOTINE 21 MG/24 HOUR PATCH TD SCH (08:59)
[2016-09-10 11:58] VITALS: BP 104/72
[2016-09-10] MEDS: LORazepam 0.5 MG TABLET PO PRN ×2 (12:01→18:19)
[2016-09-10 16:33] VITALS: BP 133/81
[2016-09-10] MEDS: GuaiFENesin/D-METHORPHAN [SUGAR-FREE] 200-20MG/10 ML SYRUP UDCUP PO PRN (18:28)
[2016-09-10] MEDS: OLANZapine 5 MG RAPDIS TABLET PO PRN (19:54)
[2016-09-10] MEDS: DIVALPROEX SODIUM 250 MG DR TABLET PO SCH (20:23)
[2016-09-10] MEDS: ZOLPIDEM TARTRATE 10 MG TABLET PO PRN (20:27)
[2016-09-11] MEDS: LEVOTHYROXINE SODIUM 100 MCG TABLET PO SCH (06:47)
[2016-09-11] MEDS: LACTULOSE 20 GM/30 ML SOLUTION UDCUP PO SCH ×3 (09:19→17:05)
[2016-09-11] MEDS: CloZAPine 100 MG TABLET PO SCH ×2 (09:19→17:06)
[2016-09-11] MEDS: NALTREXONE HCL 50 MG TABLET PO SCH (09:20)
[2016-09-11] MEDS: GABAPENTIN 300 MG CAPSULE PO SCH ×3 (09:20→17:05)
[2016-09-11] MEDS: MULTIVITAMINS WITH MINERALS, THERAPEUTIC TABLET PO SCH (09:20)
[2016-09-11 09:22] VITALS: BP 103/62
[2016-09-11] MEDS: LORazepam 0.5 MG TABLET PO PRN (11:03)
[2016-09-11] MEDS: NICOTINE 21 MG/24 HOUR PATCH TD SCH (11:03)
[2016-09-11] MEDS: OLANZapine 5 MG RAPDIS TABLET PO PRN ×2 (11:03→20:16)
[2016-09-11] MEDS: ACETAMINOPHEN 325 MG TABLET PO PRN (12:54)
[2016-09-11 12:56] VITALS: BP 113/75
[2016-09-11 13:54] VITALS: BP 110/72
[2016-09-11 16:00] VITALS: BP 125/68
[2016-09-11] MEDS: DIVALPROEX SODIUM 250 MG DR TABLET PO SCH (20:16)
[2016-09-11] MEDS: PHENYLEPHRINE/SHK LV/MIN OIL/PET 57 GM OINTMENT TP PRN (22:03)
[2016-09-11] MEDS: ZOLPIDEM TARTRATE 10 MG TABLET PO PRN (22:07)
[2016-09-12 00:15] VITALS: BP 138/83
[2016-09-12] MEDS: LEVOTHYROXINE SODIUM 100 MCG TABLET PO SCH (06:42)
[2016-09-12 08:45] VITALS: BP 106/69
[2016-09-12] MEDS: GABAPENTIN 300 MG CAPSULE PO SCH ×3 (08:52→16:06)
[2016-09-12] MEDS: MULTIVITAMINS WITH MINERALS, THERAPEUTIC TABLET PO SCH (08:52)
[2016-09-12] MEDS: CloZAPine 100 MG TABLET PO SCH ×2 (08:53→16:06)
[2016-09-12] MEDS: OLANZapine 5 MG RAPDIS TABLET PO PRN (08:54)
[2016-09-12] MEDS: LORazepam 0.5 MG TABLET PO PRN ×2 (08:54→16:05)
[2016-09-12] MEDS: NALTREXONE HCL 50 MG TABLET PO SCH (10:01)
[2016-09-12] MEDS: LACTULOSE 20 GM/30 ML SOLUTION UDCUP PO SCH ×3 (10:01→16:05)
[2016-09-12] MEDS: NICOTINE 21 MG/24 HOUR PATCH TD SCH (10:01)
[2016-09-12] MEDS: GuaiFENesin/D-METHORPHAN [SUGAR-FREE] 200-20MG/10 ML SYRUP UDCUP PO PRN ×2 (11:57→19:41)
[2016-09-12 16:16] VITALS: BP 130/75
[2016-09-12] MEDS: ZOLPIDEM TARTRATE 10 MG TABLET PO PRN (19:58)
[2016-09-12] MEDS: DIVALPROEX SODIUM 250 MG DR TABLET PO SCH (20:19)
[2016-09-13] MEDS: LEVOTHYROXINE SODIUM 100 MCG TABLET PO SCH (06:37)
[2016-09-13 06:40] VITALS: BP 110/68
[2016-09-13] MEDS: LACTULOSE 20 GM/30 ML SOLUTION UDCUP PO SCH ×3 (08:17→16:13)
[2016-09-13] MEDS: GABAPENTIN 300 MG CAPSULE PO SCH ×3 (08:18→16:12)
[2016-09-13] MEDS: MULTIVITAMINS WITH MINERALS, THERAPEUTIC TABLET PO SCH (08:18)
[2016-09-13] MEDS: NALTREXONE HCL 50 MG TABLET PO SCH (08:18)
[2016-09-13] MEDS: CloZAPine 100 MG TABLET PO SCH ×2 (08:18→16:12)
[2016-09-13 09:04] VITALS: BP 138/86
[2016-09-13] MEDS: LORazepam 0.5 MG TABLET PO PRN ×2 (09:06→16:21)
[2016-09-13] MEDS: NICOTINE 21 MG/24 HOUR PATCH TD SCH (09:08)
[2016-09-13] MEDS: GuaiFENesin/D-METHORPHAN [SUGAR-FREE] 200-20MG/10 ML SYRUP UDCUP PO PRN (09:53)
[2016-09-13] MEDS: OLANZapine 5 MG RAPDIS TABLET PO PRN (12:38)
[2016-09-13 16:00] VITALS: BP 140/83
[2016-09-13] MEDS: DIVALPROEX SODIUM 250 MG DR TABLET PO SCH (20:47)
[2016-09-14 02:54] VITALS: BP 126/65
[2016-09-14] MEDS: LEVOTHYROXINE SODIUM 100 MCG TABLET PO SCH (06:36)
[2016-09-14 08:14] LABS: BASOPHILS % (AUTO) 0.5 % (0.0-2.0); EOSINOPHILS % (AUTO) 2.2 % (1.0-6.0); HEMATOCRIT 37.5 % (41-53); HEMOGLOBIN 12.6 g/dL (13.5-17.5); LYMPHOCYTES # (AUTO) 2.3 K/uL (1.0-4.8); LYMPHOCYTES % (AUTO) 45.1 % (22.0-44.0); MEAN CORPUSCULAR HEMOGLOBIN 32.5 pg (26.0-34.0); MEAN CORPUSCULAR HGB CONC 33.5 G/dL (31.0-37.0); MEAN CORPUSCULAR VOLUME 97 fL (80-100); MONOCYTES # (AUTO) 0.5 K/uL (0.1-1.0); MONOCYTES % (AUTO) 10.7 % (2.0-9.0); NEUTROPHILS # (AUTO) 2.1 K/uL (1.8-7.7); NEUTROPHILS % (AUTO) 41.5 % (40.0-70.0); PLATELET COUNT (AUTO) 312 K/uL (150-450); RED BLOOD CELL COUNT(AUTO) 3.87 MIL/uL (4.50-5.90); RED CELL DISTRIBUTION WIDTH 12.6 % (11.5-14.5)
[2016-09-14 08:40] VITALS: BP 100/53
[2016-09-14] MEDS: LACTULOSE 20 GM/30 ML SOLUTION UDCUP PO SCH ×3 (09:26→16:01)
[2016-09-14] MEDS: GABAPENTIN 300 MG CAPSULE PO SCH ×3 (09:27→16:01)
[2016-09-14] MEDS: MULTIVITAMINS WITH MINERALS, THERAPEUTIC TABLET PO SCH (09:27)
[2016-09-14] MEDS: CloZAPine 100 MG TABLET PO SCH ×2 (09:27→16:01)
[2016-09-14] MEDS: NALTREXONE HCL 50 MG TABLET PO SCH (09:27)
[2016-09-14] MEDS: NICOTINE 21 MG/24 HOUR PATCH TD SCH (10:24)
[2016-09-14] MEDS: LORazepam 0.5 MG TABLET PO PRN (10:24)
[2016-09-14] MEDS: OLANZapine 5 MG RAPDIS TABLET PO PRN (11:59)
[2016-09-14 12:10] VITALS: BP 115/75
[2016-09-14] MEDS: ACETAMINOPHEN 325 MG TABLET PO PRN (12:11)
[2016-09-14 13:11] VITALS: BP 120/72
[2016-09-14] MEDS: PHENYLEPHRINE/SHK LV/MIN OIL/PET 57 GM OINTMENT TP PRN (17:19)
[2016-09-14] MEDS: PROMETHAZINE HCL 25 MG TABLET PO PRN (17:59)
[2016-09-14] MEDS: DIVALPROEX SODIUM 250 MG DR TABLET PO SCH (20:18)
[2016-09-15 00:57] VITALS: BP 140/67
[2016-09-15] MEDS: ZOLPIDEM TARTRATE 10 MG TABLET PO PRN ×2 (00:59→20:15)
[2016-09-15] MEDS: LEVOTHYROXINE SODIUM 100 MCG TABLET PO SCH (06:47)
[2016-09-15 08:02] VITALS: BP 117/73
[2016-09-15] MEDS: LACTULOSE 20 GM/30 ML SOLUTION UDCUP PO SCH ×3 (09:48→17:21)
[2016-09-15] MEDS: GABAPENTIN 300 MG CAPSULE PO SCH ×3 (09:49→17:22)
[2016-09-15] MEDS: CloZAPine 100 MG TABLET PO SCH ×2 (09:49→17:22)
[2016-09-15] MEDS: NALTREXONE HCL 50 MG TABLET PO SCH (09:49)
[2016-09-15] MEDS: NICOTINE 21 MG/24 HOUR PATCH TD SCH (09:49)
[2016-09-15] MEDS: MULTIVITAMINS WITH MINERALS, THERAPEUTIC TABLET PO SCH (09:49)
[2016-09-15] MEDS: LORazepam 0.5 MG TABLET PO PRN ×2 (11:20→18:15)
[2016-09-15] MEDS: OLANZapine 5 MG RAPDIS TABLET PO PRN (12:04)
[2016-09-15] MEDS: DiphenhydrAMINE HCL 50 MG CAPSULE PO PRN (15:46)
[2016-09-15 16:05] VITALS: BP 124/78
[2016-09-15] MEDS: PHENYLEPHRINE/SHK LV/MIN OIL/PET 57 GM OINTMENT TP PRN (19:52)
[2016-09-15] MEDS: DIVALPROEX SODIUM 250 MG DR TABLET PO SCH (20:15)
[2016-09-16] MEDS: LEVOTHYROXINE SODIUM 100 MCG TABLET PO SCH (06:41)
[2016-09-16 07:12] VITALS: BP 116/79
[2016-09-16 08:19] VITALS: BP 128/62
[2016-09-16] MEDS: CloZAPine 100 MG TABLET PO SCH ×2 (09:23→16:29)
[2016-09-16] MEDS: GABAPENTIN 300 MG CAPSULE PO SCH ×3 (09:23→16:29)
[2016-09-16] MEDS: LACTULOSE 20 GM/30 ML SOLUTION UDCUP PO SCH ×3 (09:23→16:29)
[2016-09-16] MEDS: NALTREXONE HCL 50 MG TABLET PO SCH (09:23)
[2016-09-16] MEDS: MULTIVITAMINS WITH MINERALS, THERAPEUTIC TABLET PO SCH (09:23)
[2016-09-16] MEDS: NICOTINE 21 MG/24 HOUR PATCH TD SCH (09:23)
[2016-09-16] MEDS: DiphenhydrAMINE HCL 50 MG CAPSULE PO PRN ×2 (09:25→15:54)
[2016-09-16] MEDS: OLANZapine 5 MG RAPDIS TABLET PO PRN (10:30)
[2016-09-16] MEDS: LORazepam 0.5 MG TABLET PO PRN ×2 (10:30→18:34)
[2016-09-16 16:02] VITALS: BP 112/79
[2016-09-16] MEDS: DIVALPROEX SODIUM 250 MG DR TABLET PO SCH (20:34)
[2016-09-16] MEDS: ZOLPIDEM TARTRATE 10 MG TABLET PO PRN (21:24)
[2016-09-17] MEDS: LEVOTHYROXINE SODIUM 100 MCG TABLET PO SCH (06:44)
[2016-09-17 06:58] VITALS: BP 100/64
[2016-09-17] MEDS: LACTULOSE 20 GM/30 ML SOLUTION UDCUP PO SCH ×3 (09:22→16:05)
[2016-09-17] MEDS: CloZAPine 100 MG TABLET PO SCH ×2 (09:22→16:05)
[2016-09-17] MEDS: MULTIVITAMINS WITH MINERALS, THERAPEUTIC TABLET PO SCH (09:22)
[2016-09-17] MEDS: NICOTINE 21 MG/24 HOUR PATCH TD SCH (09:22)
[2016-09-17] MEDS: NALTREXONE HCL 50 MG TABLET PO SCH (09:23)
[2016-09-17] MEDS: LORATADINE 10 MG TABLET PO SCH (09:23)
[2016-09-17] MEDS: GABAPENTIN 300 MG CAPSULE PO SCH ×3 (09:23→16:05)
[2016-09-17] MEDS: MAG HYDROX/AL HYDROX/SIMETH ES 30 ML SUSPENSION UDCUP PO PRN (09:37)
[2016-09-17] MEDS: DiphenhydrAMINE HCL 50 MG CAPSULE PO PRN ×2 (09:54→17:44)
[2016-09-17] MEDS: OLANZapine 5 MG RAPDIS TABLET PO PRN ×2 (10:23→16:44)
[2016-09-17] MEDS: LORazepam 0.5 MG TABLET PO PRN ×2 (10:31→19:09)
[2016-09-17 11:12] VITALS: BP 134/83
[2016-09-17 16:16] VITALS: BP 116/71
[2016-09-17] MEDS: DIVALPROEX SODIUM 250 MG DR TABLET PO SCH (20:11)
[2016-09-17] MEDS: ZOLPIDEM TARTRATE 10 MG TABLET PO PRN (20:52)
[2016-09-18 00:24] VITALS: BP 125/79
[2016-09-18] MEDS: LEVOTHYROXINE SODIUM 100 MCG TABLET PO SCH (06:26)
[2016-09-18 08:53] VITALS: BP 108/63
[2016-09-18] MEDS: LACTULOSE 20 GM/30 ML SOLUTION UDCUP PO SCH ×3 (08:55→16:14)
[2016-09-18] MEDS: NICOTINE 21 MG/24 HOUR PATCH TD SCH (08:55)
[2016-09-18] MEDS: MULTIVITAMINS WITH MINERALS, THERAPEUTIC TABLET PO SCH (08:56)
[2016-09-18] MEDS: GABAPENTIN 300 MG CAPSULE PO SCH ×3 (08:56→16:15)
[2016-09-18] MEDS: CloZAPine 100 MG TABLET PO SCH ×2 (08:56→16:14)
[2016-09-18] MEDS: NALTREXONE HCL 50 MG TABLET PO SCH (08:56)
[2016-09-18] MEDS: LORATADINE 10 MG TABLET PO SCH (08:56)
[2016-09-18] MEDS: DiphenhydrAMINE HCL 50 MG CAPSULE PO PRN ×2 (11:12→18:32)
[2016-09-18] MEDS: LORazepam 0.5 MG TABLET PO PRN ×2 (12:12→17:05)
[2016-09-18 16:00] VITALS: BP 122/73
[2016-09-18] MEDS: DIVALPROEX SODIUM 250 MG DR TABLET PO SCH (20:08)
[2016-09-18] MEDS ORDERED: DOCUSATE SODIUM 100 MG CAPSULE PO SCH (21:00)
[2016-09-19 00:59] VITALS: BP 106/67
[2016-09-19] MEDS: DiphenhydrAMINE HCL 50 MG CAPSULE PO PRN ×2 (01:07→11:56)
[2016-09-19] MEDS: LEVOTHYROXINE SODIUM 100 MCG TABLET PO SCH (06:03)
[2016-09-19 08:32] VITALS: BP 113/68
[2016-09-19] MEDS: GABAPENTIN 300 MG CAPSULE PO SCH ×3 (09:14→18:12)
[2016-09-19] MEDS: LORATADINE 10 MG TABLET PO SCH (09:14)
[2016-09-19] MEDS: LACTULOSE 20 GM/30 ML SOLUTION UDCUP PO SCH ×3 (09:14→18:12)
[2016-09-19] MEDS: CloZAPine 100 MG TABLET PO SCH ×2 (09:14→18:12)
[2016-09-19] MEDS: NALTREXONE HCL 50 MG TABLET PO SCH (09:14)
[2016-09-19] MEDS: MULTIVITAMINS WITH MINERALS, THERAPEUTIC TABLET PO SCH (09:14)
[2016-09-19] MEDS: NICOTINE 21 MG/24 HOUR PATCH TD SCH (09:19)
[2016-09-19] MEDS: LORazepam 0.5 MG TABLET PO PRN ×2 (10:25→14:31)
[2016-09-19] MEDS: OLANZapine 5 MG RAPDIS TABLET PO PRN (12:29)
[2016-09-19] MEDS ORDERED: LORazepam 2 MG/ML VIAL IM ONE (15:45)
[2016-09-19] MEDS ORDERED: DiphenhydrAMINE HCL 50 MG/ML VIAL IM ONE (15:45)
[2016-09-19 16:00] VITALS: BP 114/79
[2016-09-19] MEDS: PHENYLEPHRINE/SHK LV/MIN OIL/PET 57 GM OINTMENT TP PRN (18:12)
[2016-09-19] MEDS: DIVALPROEX SODIUM 500 MG DR TABLET PO SCH (20:20)
[2016-09-19] MEDS: DOCUSATE SODIUM 100 MG CAPSULE PO SCH (20:20)
[2016-09-19] MEDS: ZOLPIDEM TARTRATE 10 MG TABLET PO PRN (20:41)
[2016-09-19] MEDS ORDERED: ChlorproMAZINE HCL 100 MG TABLET PO ONE (22:30)
[2016-09-19] MEDS ORDERED: LORazepam 2 MG TABLET PO ONE (22:30)
[2016-09-20 05:22] VITALS: BP 110/64
[2016-09-20] MEDS: LEVOTHYROXINE SODIUM 100 MCG TABLET PO SCH (06:12)
[2016-09-20 08:25] VITALS: BP 113/60
[2016-09-20] MEDS: LACTULOSE 20 GM/30 ML SOLUTION UDCUP PO SCH ×3 (08:40→16:18)
[2016-09-20] MEDS: NICOTINE 21 MG/24 HOUR PATCH TD SCH (08:40)
[2016-09-20] MEDS: LORATADINE 10 MG TABLET PO SCH (08:41)
[2016-09-20] MEDS: MULTIVITAMINS WITH MINERALS, THERAPEUTIC TABLET PO SCH (08:41)
[2016-09-20] MEDS: GABAPENTIN 300 MG CAPSULE PO SCH ×3 (08:41→16:18)
[2016-09-20] MEDS: CloZAPine 100 MG TABLET PO SCH ×2 (08:41→16:18)
[2016-09-20] MEDS: NALTREXONE HCL 50 MG TABLET PO SCH (08:41)
[2016-09-20] MEDS: DiphenhydrAMINE HCL 50 MG CAPSULE PO PRN (09:21)
[2016-09-20] MEDS: LORazepam 0.5 MG TABLET PO PRN ×2 (10:16→16:10)
[2016-09-20] MEDS: OLANZapine 5 MG RAPDIS TABLET PO PRN (12:15)
[2016-09-20 16:03] VITALS: BP 115/64
[2016-09-20] MEDS: DIVALPROEX SODIUM 500 MG DR TABLET PO SCH (20:26)
[2016-09-20] MEDS: DOCUSATE SODIUM 100 MG CAPSULE PO SCH (20:26)
[2016-09-21] MEDS: LEVOTHYROXINE SODIUM 100 MCG TABLET PO SCH (06:44)
[2016-09-21 07:29] VITALS: BP 102/65
[2016-09-21 08:25] LABS: BASOPHILS % (AUTO) 0.3 % (0.0-2.0); EOSINOPHILS % (AUTO) 1.1 % (1.0-6.0); HEMATOCRIT 40.1 % (41-53); HEMOGLOBIN 13.6 g/dL (13.5-17.5); LYMPHOCYTES # (AUTO) 2.3 K/uL (1.0-4.8); LYMPHOCYTES % (AUTO) 24.4 % (22.0-44.0); MEAN CORPUSCULAR HEMOGLOBIN 32.8 pg (26.0-34.0); MEAN CORPUSCULAR HGB CONC 33.9 G/dL (31.0-37.0); MEAN CORPUSCULAR VOLUME 97 fL (80-100); MONOCYTES # (AUTO) 0.7 K/uL (0.1-1.0); MONOCYTES % (AUTO) 7.5 % (2.0-9.0); NEUTROPHILS # (AUTO) 6.4 K/uL (1.8-7.7); NEUTROPHILS % (AUTO) 66.7 % (40.0-70.0); PLATELET COUNT (AUTO) 279 K/uL (150-450); RED BLOOD CELL COUNT(AUTO) 4.14 MIL/uL (4.50-5.90); RED CELL DISTRIBUTION WIDTH 12.8 % (11.5-14.5); WHITE BLOOD COUNT (AUTO) 9.6 K/uL (4.5-11.0)
[2016-09-21] MEDS: GABAPENTIN 300 MG CAPSULE PO SCH ×3 (08:39→16:19)
[2016-09-21] MEDS: NALTREXONE HCL 50 MG TABLET PO SCH (08:39)
[2016-09-21] MEDS: LORATADINE 10 MG TABLET PO SCH (08:39)
[2016-09-21] MEDS: MULTIVITAMINS WITH MINERALS, THERAPEUTIC TABLET PO SCH (08:39)
[2016-09-21] MEDS: NICOTINE 21 MG/24 HOUR PATCH TD SCH ×2 (08:39→09:00)
[2016-09-21] MEDS: CloZAPine 100 MG TABLET PO SCH ×2 (08:39→16:22)
[2016-09-21] MEDS: LACTULOSE 20 GM/30 ML SOLUTION UDCUP PO SCH ×3 (08:40→16:17)
[2016-09-21] MEDS: DiphenhydrAMINE HCL 50 MG CAPSULE PO PRN ×2 (11:18→17:35)
[2016-09-21 12:00] VITALS: BP 113/70
[2016-09-21] MEDS: LORazepam 0.5 MG TABLET PO PRN ×2 (12:09→17:35)
[2016-09-21] MEDS: OLANZapine 5 MG RAPDIS TABLET PO PRN (12:38)
[2016-09-21 16:02] VITALS: BP 111/78
[2016-09-21] MEDS: DOCUSATE SODIUM 100 MG CAPSULE PO SCH (20:38)
[2016-09-21] MEDS: DIVALPROEX SODIUM 500 MG DR TABLET PO SCH (20:39)
[2016-09-22 06:15] VITALS: BP 119/64
[2016-09-22] MEDS: LORazepam 0.5 MG TABLET PO PRN ×4 (06:23→23:51)
[2016-09-22] MEDS: LEVOTHYROXINE SODIUM 100 MCG TABLET PO SCH (06:36)
[2016-09-22] MEDS: LACTULOSE 20 GM/30 ML SOLUTION UDCUP PO SCH ×3 (08:30→16:21)
[2016-09-22] MEDS: NALTREXONE HCL 50 MG TABLET PO SCH (08:31)
[2016-09-22] MEDS: MULTIVITAMINS WITH MINERALS, THERAPEUTIC TABLET PO SCH (08:31)
[2016-09-22] MEDS: LORATADINE 10 MG TABLET PO SCH (08:31)
[2016-09-22] MEDS: NICOTINE 21 MG/24 HOUR PATCH TD SCH (08:31)
[2016-09-22] MEDS: CloZAPine 100 MG TABLET PO SCH ×2 (08:31→16:22)
[2016-09-22] MEDS: GABAPENTIN 300 MG CAPSULE PO SCH ×3 (08:31→16:21)
[2016-09-22] MEDS: DiphenhydrAMINE HCL 50 MG CAPSULE PO PRN ×2 (08:31→15:41)
[2016-09-22 08:37] VITALS: BP 118/90
[2016-09-22 16:21] VITALS: BP 120/61
[2016-09-22] MEDS: DIVALPROEX SODIUM 500 MG DR TABLET PO SCH (20:03)
[2016-09-22] MEDS: DOCUSATE SODIUM 100 MG CAPSULE PO SCH (20:03)
[2016-09-22] MEDS: ZOLPIDEM TARTRATE 10 MG TABLET PO PRN (21:33)
[2016-09-23 00:30] VITALS: BP 114/69
[2016-09-23] MEDS: PHENYLEPHRINE/SHK LV/MIN OIL/PET 57 GM OINTMENT TP PRN (00:54)
[2016-09-23] MEDS: DiphenhydrAMINE HCL 50 MG CAPSULE PO PRN ×2 (01:11→16:53)
[2016-09-23] MEDS: MAG HYDROX/AL HYDROX/SIMETH ES 30 ML SUSPENSION UDCUP PO PRN (03:03)
[2016-09-23] MEDS: ACETAMINOPHEN 325 MG TABLET PO PRN (04:18)
[2016-09-23] MEDS: LEVOTHYROXINE SODIUM 100 MCG TABLET PO SCH ×2 (06:18→06:30)
[2016-09-23 08:44] VITALS: BP 105/56
[2016-09-23] MEDS: CloZAPine 100 MG TABLET PO SCH ×2 (08:50→16:53)
[2016-09-23] MEDS: NICOTINE 21 MG/24 HOUR PATCH TD SCH (08:50)
[2016-09-23] MEDS: LORATADINE 10 MG TABLET PO SCH ×2 (08:57→09:00)
[2016-09-23] MEDS: GABAPENTIN 300 MG CAPSULE PO SCH ×4 (09:00→16:52)
[2016-09-23] MEDS: NALTREXONE HCL 50 MG TABLET PO SCH (09:00)
[2016-09-23] MEDS: MULTIVITAMINS WITH MINERALS, THERAPEUTIC TABLET PO SCH (09:00)
[2016-09-23] MEDS: LACTULOSE 20 GM/30 ML SOLUTION UDCUP PO SCH ×3 (09:00→16:52)
[2016-09-23 12:16] LABS: CLOZAPINE 254 ng/mL (350-650); CLOZAPINE & NORCLOZAPINE 332 ng/mL; NORCLOZAPINE 78 ng/mL (Not Estab.)
[2016-09-23] MEDS: LORazepam 0.5 MG TABLET PO PRN ×2 (13:21→17:23)
[2016-09-23] MEDS: OLANZapine 5 MG RAPDIS TABLET PO PRN (13:24)
[2016-09-23] MEDS: PROMETHAZINE HCL 25 MG TABLET PO PRN (15:04)
[2016-09-23 16:24] VITALS: BP 108/70
[2016-09-23] MEDS: DOCUSATE SODIUM 100 MG CAPSULE PO SCH (20:34)
[2016-09-23] MEDS: DIVALPROEX SODIUM 500 MG DR TABLET PO SCH (20:34)
[2016-09-23] MEDS: ZOLPIDEM TARTRATE 10 MG TABLET PO PRN (21:03)
[2016-09-24] MEDS: LEVOTHYROXINE SODIUM 100 MCG TABLET PO SCH (06:25)
[2016-09-24] MEDS: NICOTINE 21 MG/24 HOUR PATCH TD SCH ×2 (08:49→09:00)
[2016-09-24] MEDS: GABAPENTIN 300 MG CAPSULE PO SCH ×3 (08:49→16:29)
[2016-09-24] MEDS: LACTULOSE 20 GM/30 ML SOLUTION UDCUP PO SCH ×3 (08:49→16:29)
[2016-09-24] MEDS: LORATADINE 10 MG TABLET PO SCH (08:49)
[2016-09-24] MEDS: MULTIVITAMINS WITH MINERALS, THERAPEUTIC TABLET PO SCH (08:49)
[2016-09-24] MEDS: NALTREXONE HCL 50 MG TABLET PO SCH (08:50)
[2016-09-24] MEDS: CloZAPine 100 MG TABLET PO SCH ×2 (08:50→16:29)
[2016-09-24] MEDS: DiphenhydrAMINE HCL 50 MG CAPSULE PO PRN ×2 (08:58→17:24)
[2016-09-24] MEDS: LORazepam 0.5 MG TABLET PO PRN ×2 (10:45→15:35)
[2016-09-24 16:04] VITALS: BP 124/79
[2016-09-24] MEDS: OLANZapine 5 MG RAPDIS TABLET PO PRN (16:06)
[2016-09-24] MEDS: DIVALPROEX SODIUM 500 MG DR TABLET PO SCH (20:13)
[2016-09-24] MEDS: DOCUSATE SODIUM 100 MG CAPSULE PO SCH (20:13)
[2016-09-24] MEDS: ZOLPIDEM TARTRATE 10 MG TABLET PO PRN (20:36)
[2016-09-25] VITALS: BP 129/77
[2016-09-25] MEDS: LORazepam 0.5 MG TABLET PO PRN ×3 (01:51→14:42)
[2016-09-25] MEDS: DiphenhydrAMINE HCL 50 MG CAPSULE PO PRN ×2 (01:51→08:53)
[2016-09-25] MEDS: LEVOTHYROXINE SODIUM 100 MCG TABLET PO SCH (06:07)
[2016-09-25] MEDS: CloZAPine 100 MG TABLET PO SCH ×2 (08:51→16:19)
[2016-09-25] MEDS: LACTULOSE 20 GM/30 ML SOLUTION UDCUP PO SCH ×3 (08:51→16:16)
[2016-09-25] MEDS: NICOTINE 21 MG/24 HOUR PATCH TD SCH (08:51)
[2016-09-25] MEDS: MULTIVITAMINS WITH MINERALS, THERAPEUTIC TABLET PO SCH (08:52)
[2016-09-25] MEDS: LORATADINE 10 MG TABLET PO SCH (08:52)
[2016-09-25] MEDS: NALTREXONE HCL 50 MG TABLET PO SCH (08:52)
[2016-09-25] MEDS: GABAPENTIN 300 MG CAPSULE PO SCH ×3 (08:52→16:17)
[2016-09-25 09:14] VITALS: BP 109/66
[2016-09-25 16:15] VITALS: BP 114/88
[2016-09-25] MEDS: OLANZapine 5 MG RAPDIS TABLET PO PRN (18:24)
[2016-09-25] MEDS: DIVALPROEX SODIUM 500 MG DR TABLET PO SCH (20:16)
[2016-09-25] MEDS: DOCUSATE SODIUM 100 MG CAPSULE PO SCH (20:16)
[2016-09-25] MEDS: ZOLPIDEM TARTRATE 10 MG TABLET PO PRN (20:16)
[2016-09-26 02:35] VITALS: BP 132/92
[2016-09-26] MEDS: LORazepam 0.5 MG TABLET PO PRN ×3 (02:41→16:48)
[2016-09-26] MEDS: LEVOTHYROXINE SODIUM 100 MCG TABLET PO SCH (06:40)
[2016-09-26 08:27] VITALS: BP 112/60
[2016-09-26] MEDS: MULTIVITAMINS WITH MINERALS, THERAPEUTIC TABLET PO SCH (08:38)
[2016-09-26] MEDS: NICOTINE 21 MG/24 HOUR PATCH TD SCH (08:38)
[2016-09-26] MEDS: LACTULOSE 20 GM/30 ML SOLUTION UDCUP PO SCH ×3 (08:38→16:36)
[2016-09-26] MEDS: GABAPENTIN 300 MG CAPSULE PO SCH ×3 (08:38→16:36)
[2016-09-26] MEDS: LORATADINE 10 MG TABLET PO SCH (08:39)
[2016-09-26] MEDS: NALTREXONE HCL 50 MG TABLET PO SCH (08:39)
[2016-09-26] MEDS: CloZAPine 100 MG TABLET PO SCH ×2 (08:39→16:37)
[2016-09-26] MEDS: DiphenhydrAMINE HCL 50 MG CAPSULE PO PRN ×2 (09:49→18:23)
[2016-09-26] MEDS: OLANZapine 5 MG RAPDIS TABLET PO PRN (11:54)
[2016-09-26] MEDS: MAG HYDROX/AL HYDROX/SIMETH ES 30 ML SUSPENSION UDCUP PO PRN (13:41)
[2016-09-26 16:04] VITALS: BP 127/77
[2016-09-26] MEDS: DIVALPROEX SODIUM 500 MG DR TABLET PO SCH (20:20)
[2016-09-26] MEDS: DOCUSATE SODIUM 100 MG CAPSULE PO SCH (20:20)
[2016-09-26] MEDS: ZOLPIDEM TARTRATE 10 MG TABLET PO PRN (21:49)
[2016-09-27 00:10] VITALS: BP 117/64
[2016-09-27] MEDS: ACETAMINOPHEN 325 MG TABLET PO PRN (00:14)
[2016-09-27] MEDS: LEVOTHYROXINE SODIUM 100 MCG TABLET PO SCH (06:30)
[2016-09-27 08:45] VITALS: BP 100/54
[2016-09-27] MEDS: NICOTINE 21 MG/24 HOUR PATCH TD SCH ×2 (09:00→11:13)
[2016-09-27 09:50] VITALS: BP 123/67
[2016-09-27] MEDS: CloZAPine 100 MG TABLET PO SCH ×2 (09:50→16:12)
[2016-09-27] MEDS: GABAPENTIN 300 MG CAPSULE PO SCH ×3 (09:51→16:12)
[2016-09-27] MEDS: NALTREXONE HCL 50 MG TABLET PO SCH (09:51)
[2016-09-27] MEDS: LORATADINE 10 MG TABLET PO SCH (09:51)
[2016-09-27] MEDS: MULTIVITAMINS WITH MINERALS, THERAPEUTIC TABLET PO SCH (09:51)
[2016-09-27] MEDS: LACTULOSE 20 GM/30 ML SOLUTION UDCUP PO SCH ×3 (09:51→16:11)
[2016-09-27] MEDS: DiphenhydrAMINE HCL 50 MG CAPSULE PO PRN ×2 (10:27→17:04)
[2016-09-27] MEDS: OLANZapine 5 MG RAPDIS TABLET PO PRN (11:31)
[2016-09-27] MEDS: LORazepam 0.5 MG TABLET PO PRN (16:12)
[2016-09-27 16:13] VITALS: BP 108/76
[2016-09-27] MEDS: DOCUSATE SODIUM 100 MG CAPSULE PO SCH (20:49)
[2016-09-27] MEDS: DIVALPROEX SODIUM 500 MG DR TABLET PO SCH (20:49)
[2016-09-28 06:31] VITALS: BP 112/67
[2016-09-28] MEDS: LORazepam 0.5 MG TABLET PO PRN ×2 (06:33→16:16)
[2016-09-28] MEDS: LEVOTHYROXINE SODIUM 100 MCG TABLET PO SCH (06:33)
[2016-09-28 08:03] LABS: BASOPHILS % (AUTO) 0.4 % (0.0-2.0); EOSINOPHILS % (AUTO) 1.9 % (1.0-6.0); HEMATOCRIT 38.8 % (41-53); LYMPHOCYTES % (AUTO) 38.3 % (22.0-44.0); MEAN CORPUSCULAR HEMOGLOBIN 32.5 pg (26.0-34.0); MEAN CORPUSCULAR HGB CONC 33.5 G/dL (31.0-37.0); MEAN CORPUSCULAR VOLUME 97 fL (80-100); MONOCYTES # (AUTO) 0.5 K/uL (0.1-1.0); MONOCYTES % (AUTO) 9.7 % (2.0-9.0); NEUTROPHILS # (AUTO) 2.6 K/uL (1.8-7.7); NEUTROPHILS % (AUTO) 49.7 % (40.0-70.0); PLATELET COUNT (AUTO) 289 K/uL (150-450); RED CELL DISTRIBUTION WIDTH 12.1 % (11.5-14.5); WHITE BLOOD COUNT (AUTO) 5.2 K/uL (4.5-11.0)
[2016-09-28] MEDS: NICOTINE 21 MG/24 HOUR PATCH TD SCH (08:17)
[2016-09-28] MEDS: LACTULOSE 20 GM/30 ML SOLUTION UDCUP PO SCH ×3 (08:17→16:14)
[2016-09-28] MEDS: GABAPENTIN 300 MG CAPSULE PO SCH ×3 (08:17→16:14)
[2016-09-28] MEDS: CloZAPine 100 MG TABLET PO SCH ×2 (08:18→16:15)
[2016-09-28] MEDS: LORATADINE 10 MG TABLET PO SCH (08:18)
[2016-09-28] MEDS: NALTREXONE HCL 50 MG TABLET PO SCH (08:19)
[2016-09-28] MEDS: MULTIVITAMINS WITH MINERALS, THERAPEUTIC TABLET PO SCH (08:21)
[2016-09-28] MEDS: DiphenhydrAMINE HCL 50 MG CAPSULE PO PRN ×2 (10:35→17:58)
[2016-09-28 16:08] VITALS: BP 100/63
[2016-09-28] MEDS: DOCUSATE SODIUM 100 MG CAPSULE PO SCH (21:24)
[2016-09-28] MEDS: DIVALPROEX SODIUM 500 MG DR TABLET PO SCH (21:24)
[2016-09-28] MEDS: ZOLPIDEM TARTRATE 10 MG TABLET PO PRN (21:25)
[2016-09-29 00:26] VITALS: BP 100/61
[2016-09-29 03:12] VITALS: BP 111/82
[2016-09-29] MEDS: LORazepam 0.5 MG TABLET PO PRN ×2 (03:14→17:08)
[2016-09-29] MEDS: MAG HYDROX/AL HYDROX/SIMETH ES 30 ML SUSPENSION UDCUP PO PRN (05:44)
[2016-09-29] MEDS: LEVOTHYROXINE SODIUM 100 MCG TABLET PO SCH (06:10)
[2016-09-29] MEDS: LACTULOSE 20 GM/30 ML SOLUTION UDCUP PO SCH ×3 (08:30→16:40)
[2016-09-29] MEDS: NICOTINE 21 MG/24 HOUR PATCH TD SCH (08:30)
[2016-09-29] MEDS: GABAPENTIN 300 MG CAPSULE PO SCH ×3 (08:31→16:40)
[2016-09-29] MEDS: CloZAPine 100 MG TABLET PO SCH ×2 (08:31→16:41)
[2016-09-29] MEDS: NALTREXONE HCL 50 MG TABLET PO SCH (08:31)
[2016-09-29] MEDS: MULTIVITAMINS WITH MINERALS, THERAPEUTIC TABLET PO SCH (08:31)
[2016-09-29] MEDS: LORATADINE 10 MG TABLET PO SCH (08:41)
[2016-09-29] MEDS: DiphenhydrAMINE HCL 50 MG CAPSULE PO PRN ×2 (08:44→17:08)
[2016-09-29 16:56] VITALS: BP 117/75
[2016-09-29] MEDS: DIVALPROEX SODIUM 500 MG DR TABLET PO SCH (20:29)
[2016-09-29] MEDS: ZOLPIDEM TARTRATE 10 MG TABLET PO PRN (20:29)
[2016-09-29] MEDS: DOCUSATE SODIUM 100 MG CAPSULE PO SCH (20:29)
[2016-09-30 05:00] VITALS: BP 109/62
[2016-09-30] MEDS: LEVOTHYROXINE SODIUM 100 MCG TABLET PO SCH (06:33)
[2016-09-30] MEDS: NICOTINE 21 MG/24 HOUR PATCH TD SCH (08:20)
[2016-09-30] MEDS: NALTREXONE HCL 50 MG TABLET PO SCH (08:20)
[2016-09-30] MEDS: LORATADINE 10 MG TABLET PO SCH (08:20)
[2016-09-30] MEDS: GABAPENTIN 300 MG CAPSULE PO SCH ×3 (08:20→16:13)
[2016-09-30] MEDS: CloZAPine 100 MG TABLET PO SCH ×2 (08:20→16:13)
[2016-09-30] MEDS: LACTULOSE 20 GM/30 ML SOLUTION UDCUP PO SCH ×3 (08:23→16:11)
[2016-09-30] MEDS: MULTIVITAMINS WITH MINERALS, THERAPEUTIC TABLET PO SCH (08:29)
[2016-09-30] MEDS: LORazepam 0.5 MG TABLET PO PRN ×2 (08:37→17:00)
[2016-09-30 08:52] VITALS: BP 101/60
[2016-09-30] MEDS: DiphenhydrAMINE HCL 50 MG CAPSULE PO PRN (10:42)
[2016-09-30] MEDS: OLANZapine 5 MG RAPDIS TABLET PO PRN (12:48)
[2016-09-30] MEDS: GuaiFENesin/D-METHORPHAN [SUGAR-FREE] 200-20MG/10 ML SYRUP UDCUP PO PRN (14:30)
[2016-09-30 16:10] VITALS: BP 122/72
[2016-09-30] MEDS: ZOLPIDEM TARTRATE 10 MG TABLET PO PRN (20:45)
[2016-09-30] MEDS: DOCUSATE SODIUM 100 MG CAPSULE PO SCH (20:46)
[2016-09-30] MEDS: DIVALPROEX SODIUM 500 MG DR TABLET PO SCH (20:46)
[2016-10-01 05:32] VITALS: BP 123/75
[2016-10-01] MEDS: LEVOTHYROXINE SODIUM 100 MCG TABLET PO SCH (06:33)
[2016-10-01] MEDS: LORATADINE 10 MG TABLET PO SCH (08:29)
[2016-10-01] MEDS: NALTREXONE HCL 50 MG TABLET PO SCH (08:29)
[2016-10-01] MEDS: LACTULOSE 20 GM/30 ML SOLUTION UDCUP PO SCH ×3 (08:29→16:15)
[2016-10-01] MEDS: CloZAPine 100 MG TABLET PO SCH ×2 (08:29→16:15)
[2016-10-01] MEDS: NICOTINE 21 MG/24 HOUR PATCH TD SCH (08:29)
[2016-10-01] MEDS: DiphenhydrAMINE HCL 50 MG CAPSULE PO PRN ×3 (08:29→17:12)
[2016-10-01] MEDS: MULTIVITAMINS WITH MINERALS, THERAPEUTIC TABLET PO SCH (08:29)
[2016-10-01] MEDS: GABAPENTIN 300 MG CAPSULE PO SCH ×3 (08:29→16:15)
[2016-10-01 08:36] VITALS: BP 126/67
[2016-10-01] MEDS: LORazepam 0.5 MG TABLET PO PRN ×2 (09:12→17:12)
[2016-10-01] MEDS: OLANZapine 5 MG RAPDIS TABLET PO PRN ×2 (10:34→18:34)
[2016-10-01 16:00] VITALS: BP 112/75
[2016-10-01] MEDS: ZOLPIDEM TARTRATE 10 MG TABLET PO PRN (20:36)
[2016-10-01] MEDS: DOCUSATE SODIUM 100 MG CAPSULE PO SCH (20:39)
[2016-10-01] MEDS: DIVALPROEX SODIUM 500 MG DR TABLET PO SCH (20:39)
[2016-10-02 00:51] VITALS: BP 115/77
[2016-10-02] MEDS: LEVOTHYROXINE SODIUM 100 MCG TABLET PO SCH (07:20)
[2016-10-02] MEDS: LACTULOSE 20 GM/30 ML SOLUTION UDCUP PO SCH ×3 (08:45→16:02)
[2016-10-02] MEDS: MULTIVITAMINS WITH MINERALS, THERAPEUTIC TABLET PO SCH (08:46)
[2016-10-02] MEDS: CloZAPine 100 MG TABLET PO SCH ×2 (08:46→16:02)
[2016-10-02] MEDS: LORazepam 0.5 MG TABLET PO PRN ×2 (08:46→13:29)
[2016-10-02] MEDS: NICOTINE 21 MG/24 HOUR PATCH TD SCH (08:46)
[2016-10-02] MEDS: GABAPENTIN 300 MG CAPSULE PO SCH ×3 (08:46→16:01)
[2016-10-02] MEDS: LORATADINE 10 MG TABLET PO SCH (08:47)
[2016-10-02] MEDS: NALTREXONE HCL 50 MG TABLET PO SCH (08:48)
[2016-10-02 08:50] VITALS: BP 137/76
[2016-10-02] MEDS: DiphenhydrAMINE HCL 50 MG CAPSULE PO PRN ×2 (09:51→16:02)
[2016-10-02 16:00] VITALS: BP 111/60
[2016-10-02] MEDS: OLANZapine 5 MG RAPDIS TABLET PO PRN (17:59)
[2016-10-02] MEDS: DIVALPROEX SODIUM 500 MG DR TABLET PO SCH (20:05)
[2016-10-02] MEDS: DOCUSATE SODIUM 100 MG CAPSULE PO SCH (20:05)
[2016-10-02] MEDS: ZOLPIDEM TARTRATE 10 MG TABLET PO PRN (21:12)
[2016-10-03 00:04] VITALS: BP 110/62
[2016-10-03] MEDS: LEVOTHYROXINE SODIUM 100 MCG TABLET PO SCH (06:26)
[2016-10-03 07:22] VITALS: BP 127/84
[2016-10-03] MEDS: LORazepam 0.5 MG TABLET PO PRN ×2 (07:22→20:13)
[2016-10-03] MEDS: DiphenhydrAMINE HCL 50 MG CAPSULE PO PRN ×2 (07:22→17:32)
[2016-10-03 08:21] VITALS: BP 126/75
[2016-10-03] MEDS: NICOTINE 21 MG/24 HOUR PATCH TD SCH (08:52)
[2016-10-03] MEDS: LACTULOSE 20 GM/30 ML SOLUTION UDCUP PO SCH ×3 (08:52→16:02)
[2016-10-03] MEDS: MULTIVITAMINS WITH MINERALS, THERAPEUTIC TABLET PO SCH (08:53)
[2016-10-03] MEDS: CloZAPine 100 MG TABLET PO SCH ×2 (08:53→16:02)
[2016-10-03] MEDS: NALTREXONE HCL 50 MG TABLET PO SCH (08:53)
[2016-10-03] MEDS: GABAPENTIN 300 MG CAPSULE PO SCH ×3 (08:53→16:02)
[2016-10-03] MEDS: LORATADINE 10 MG TABLET PO SCH (08:55)
[2016-10-03 16:02] VITALS: BP 127/81
[2016-10-03] MEDS: DOCUSATE SODIUM 100 MG CAPSULE PO SCH (20:13)
[2016-10-03] MEDS: DIVALPROEX SODIUM 500 MG DR TABLET PO SCH (20:13)
[2016-10-03 22:21] VITALS: BP 120/78
[2016-10-03] MEDS: ACETAMINOPHEN 325 MG TABLET PO PRN (22:23)
[2016-10-04 00:47] VITALS: BP 108/67
[2016-10-04] MEDS: LEVOTHYROXINE SODIUM 100 MCG TABLET PO SCH (05:56)
[2016-10-04 08:17] VITALS: BP 128/75
[2016-10-04] MEDS: NICOTINE 21 MG/24 HOUR PATCH TD SCH (08:23)
[2016-10-04] MEDS: LORATADINE 10 MG TABLET PO SCH (08:23)
[2016-10-04] MEDS: GABAPENTIN 300 MG CAPSULE PO SCH ×3 (08:23→16:32)
[2016-10-04] MEDS: MULTIVITAMINS WITH MINERALS, THERAPEUTIC TABLET PO SCH (08:23)
[2016-10-04] MEDS: CloZAPine 100 MG TABLET PO SCH ×2 (08:23→16:32)
[2016-10-04] MEDS: LACTULOSE 20 GM/30 ML SOLUTION UDCUP PO SCH ×3 (08:23→16:33)
[2016-10-04] MEDS: NALTREXONE HCL 50 MG TABLET PO SCH (08:24)
[2016-10-04] MEDS: LORazepam 0.5 MG TABLET PO PRN ×2 (09:22→16:33)
[2016-10-04] MEDS: DiphenhydrAMINE HCL 50 MG CAPSULE PO PRN (10:00)
[2016-10-04 16:08] VITALS: BP 120/68
[2016-10-04] MEDS: ZOLPIDEM TARTRATE 10 MG TABLET PO PRN (20:40)
[2016-10-04] MEDS: DIVALPROEX SODIUM 500 MG DR TABLET PO SCH (20:40)
[2016-10-04] MEDS: DOCUSATE SODIUM 100 MG CAPSULE PO SCH (20:40)
[2016-10-05] MEDS: GuaiFENesin/D-METHORPHAN [SUGAR-FREE] 200-20MG/10 ML SYRUP UDCUP PO PRN (00:02)
[2016-10-05 01:12] VITALS: BP 110/68
[2016-10-05] MEDS: LEVOTHYROXINE SODIUM 100 MCG TABLET PO SCH (06:44)
[2016-10-05 07:08] VITALS: BP 122/77
[2016-10-05] MEDS: LORazepam 0.5 MG TABLET PO PRN ×2 (07:12→15:42)
[2016-10-05 08:04] LABS: BASOPHILS % (AUTO) 0.6 % (0.0-2.0); EOSINOPHILS % (AUTO) 1.8 % (1.0-6.0); HEMATOCRIT 40.2 % (41-53); HEMOGLOBIN 13.5 g/dL (13.5-17.5); LYMPHOCYTES # (AUTO) 2.4 K/uL (1.0-4.8); MEAN CORPUSCULAR HEMOGLOBIN 32.4 pg (26.0-34.0); MEAN CORPUSCULAR HGB CONC 33.5 G/dL (31.0-37.0); MEAN CORPUSCULAR VOLUME 97 fL (80-100); MONOCYTES # (AUTO) 0.5 K/uL (0.1-1.0); MONOCYTES % (AUTO) 8.8 % (2.0-9.0); NEUTROPHILS # (AUTO) 2.7 K/uL (1.8-7.7); NEUTROPHILS % (AUTO) 46.8 % (40.0-70.0); PLATELET COUNT (AUTO) 289 K/uL (150-450); RED BLOOD CELL COUNT(AUTO) 4.17 MIL/uL (4.50-5.90); RED CELL DISTRIBUTION WIDTH 12.6 % (11.5-14.5); WHITE BLOOD COUNT (AUTO) 5.7 K/uL (4.5-11.0)
[2016-10-05 08:24] VITALS: BP 105/55
[2016-10-05] MEDS: MULTIVITAMINS WITH MINERALS, THERAPEUTIC TABLET PO SCH (09:01)
[2016-10-05] MEDS: GABAPENTIN 300 MG CAPSULE PO SCH ×3 (09:02→17:25)
[2016-10-05] MEDS: CloZAPine 100 MG TABLET PO SCH ×2 (09:02→17:25)
[2016-10-05] MEDS: NALTREXONE HCL 50 MG TABLET PO SCH (09:02)
[2016-10-05] MEDS: LORATADINE 10 MG TABLET PO SCH (09:02)
[2016-10-05] MEDS: NICOTINE 21 MG/24 HOUR PATCH TD SCH (09:03)
[2016-10-05] MEDS: LACTULOSE 20 GM/30 ML SOLUTION UDCUP PO SCH ×3 (09:03→17:25)
[2016-10-05] MEDS: DiphenhydrAMINE HCL 50 MG CAPSULE PO PRN ×2 (09:08→15:42)
[2016-10-05] MEDS: OLANZapine 5 MG RAPDIS TABLET PO PRN (10:28)
[2016-10-05 16:00] VITALS: BP 123/77
[2016-10-05] MEDS: DIVALPROEX SODIUM 500 MG DR TABLET PO SCH (20:32)
[2016-10-05] MEDS: DOCUSATE SODIUM 100 MG CAPSULE PO SCH (20:32)
[2016-10-05] MEDS: ZOLPIDEM TARTRATE 10 MG TABLET PO PRN (20:32)
[2016-10-06 02:20] VITALS: BP 119/85
[2016-10-06] MEDS: GuaiFENesin/D-METHORPHAN [SUGAR-FREE] 200-20MG/10 ML SYRUP UDCUP PO PRN ×2 (02:22→21:01)
[2016-10-06] MEDS: LORazepam 0.5 MG TABLET PO PRN ×2 (02:22→08:56)
[2016-10-06] MEDS: LEVOTHYROXINE SODIUM 100 MCG TABLET PO SCH (06:34)
[2016-10-06 08:18] VITALS: BP 113/64
[2016-10-06] MEDS: NALTREXONE HCL 50 MG TABLET PO SCH (08:43)
[2016-10-06] MEDS: NICOTINE 21 MG/24 HOUR PATCH TD SCH (08:43)
[2016-10-06] MEDS: LORATADINE 10 MG TABLET PO SCH (08:43)
[2016-10-06] MEDS: MULTIVITAMINS WITH MINERALS, THERAPEUTIC TABLET PO SCH (08:43)
[2016-10-06] MEDS: CloZAPine 100 MG TABLET PO SCH ×2 (08:43→16:24)
[2016-10-06] MEDS: LACTULOSE 20 GM/30 ML SOLUTION UDCUP PO SCH ×3 (08:43→16:25)
[2016-10-06] MEDS: GABAPENTIN 300 MG CAPSULE PO SCH ×3 (08:43→16:24)
[2016-10-06] MEDS: DiphenhydrAMINE HCL 50 MG CAPSULE PO PRN ×2 (10:05→16:26)
[2016-10-06] MEDS: OLANZapine 5 MG RAPDIS TABLET PO PRN (11:29)
[2016-10-06 16:00] VITALS: BP 124/78
[2016-10-06] MEDS: DOCUSATE SODIUM 100 MG CAPSULE PO SCH (20:02)
[2016-10-06] MEDS: DIVALPROEX SODIUM 500 MG DR TABLET PO SCH (20:03)
[2016-10-06] MEDS: ZOLPIDEM TARTRATE 10 MG TABLET PO PRN (21:58)
[2016-10-07] MEDS: LEVOTHYROXINE SODIUM 100 MCG TABLET PO SCH (06:19)
[2016-10-07 06:44] VITALS: BP 101/63
[2016-10-07 08:02] VITALS: BP 103/73
[2016-10-07] MEDS: NALTREXONE HCL 50 MG TABLET PO SCH (08:24)
[2016-10-07] MEDS: MULTIVITAMINS WITH MINERALS, THERAPEUTIC TABLET PO SCH (08:24)
[2016-10-07] MEDS: LACTULOSE 20 GM/30 ML SOLUTION UDCUP PO SCH ×3 (08:24→16:04)
[2016-10-07] MEDS: NICOTINE 21 MG/24 HOUR PATCH TD SCH (08:24)
[2016-10-07] MEDS: LORATADINE 10 MG TABLET PO SCH (08:24)
[2016-10-07] MEDS: CloZAPine 100 MG TABLET PO SCH ×2 (08:24→16:05)
[2016-10-07] MEDS: DiphenhydrAMINE HCL 50 MG CAPSULE PO PRN (08:24)
[2016-10-07] MEDS: GABAPENTIN 300 MG CAPSULE PO SCH ×3 (08:24→16:04)
[2016-10-07] MEDS: LORazepam 0.5 MG TABLET PO PRN ×2 (09:20→16:36)
[2016-10-07] MEDS: OLANZapine 5 MG RAPDIS TABLET PO PRN ×2 (11:43→17:52)
[2016-10-07 16:45] VITALS: BP 116/81
[2016-10-07] MEDS: PHENYLEPHRINE/SHK LV/MIN OIL/PET 57 GM OINTMENT TP PRN (17:04)
[2016-10-07] MEDS: GuaiFENesin/D-METHORPHAN [SUGAR-FREE] 200-20MG/10 ML SYRUP UDCUP PO PRN (19:56)
[2016-10-07] MEDS: DIVALPROEX SODIUM 500 MG DR TABLET PO SCH (20:22)
[2016-10-07] MEDS: DOCUSATE SODIUM 100 MG CAPSULE PO SCH (20:22)
[2016-10-07] MEDS: ZOLPIDEM TARTRATE 10 MG TABLET PO PRN (20:39)
[2016-10-08 05:25] VITALS: BP 105/68
[2016-10-08] MEDS: LEVOTHYROXINE SODIUM 100 MCG TABLET PO SCH (07:20)
[2016-10-08] MEDS: NICOTINE 21 MG/24 HOUR PATCH TD SCH (08:31)
[2016-10-08] MEDS: LACTULOSE 20 GM/30 ML SOLUTION UDCUP PO SCH ×3 (08:32→16:27)
[2016-10-08] MEDS: LORATADINE 10 MG TABLET PO SCH (08:32)
[2016-10-08 08:33] VITALS: BP 115/66
[2016-10-08] MEDS: MULTIVITAMINS WITH MINERALS, THERAPEUTIC TABLET PO SCH (08:33)
[2016-10-08] MEDS: CloZAPine 100 MG TABLET PO SCH ×2 (08:33→16:26)
[2016-10-08] MEDS: GABAPENTIN 300 MG CAPSULE PO SCH ×3 (08:33→16:27)
[2016-10-08] MEDS: NALTREXONE HCL 50 MG TABLET PO SCH (08:33)
[2016-10-08] MEDS: LORazepam 0.5 MG TABLET PO PRN ×2 (09:33→16:27)
[2016-10-08] MEDS: OLANZapine 5 MG RAPDIS TABLET PO PRN (09:59)
[2016-10-08] MEDS: DiphenhydrAMINE HCL 50 MG CAPSULE PO PRN (12:19)
[2016-10-08] MEDS ORDERED: TUBERCULIN, PURIFIED PROTEIN DERIVATIVE 5 TU/0.1 ML SYG ID ONE (14:45)
[2016-10-08 16:12] VITALS: BP 139/86
[2016-10-08] MEDS: DIVALPROEX SODIUM 500 MG DR TABLET PO SCH (21:59)
[2016-10-08] MEDS: ZOLPIDEM TARTRATE 10 MG TABLET PO PRN (22:00)
[2016-10-08] MEDS: DOCUSATE SODIUM 100 MG CAPSULE PO SCH (22:00)
[2016-10-09 01:45] VITALS: BP 111/66
[2016-10-09] MEDS: LORazepam 0.5 MG TABLET PO PRN ×3 (02:26→16:14)
[2016-10-09] MEDS: LEVOTHYROXINE SODIUM 100 MCG TABLET PO SCH (06:55)
[2016-10-09 08:00] VITALS: BP 105/71
[2016-10-09] MEDS: LACTULOSE 20 GM/30 ML SOLUTION UDCUP PO SCH ×3 (08:20→16:14)
[2016-10-09] MEDS: DiphenhydrAMINE HCL 25 MG CAPSULE PO SCH (08:20)
[2016-10-09] MEDS: NICOTINE 21 MG/24 HOUR PATCH TD SCH (08:20)
[2016-10-09] MEDS: MULTIVITAMINS WITH MINERALS, THERAPEUTIC TABLET PO SCH (08:20)
[2016-10-09] MEDS: CloZAPine 100 MG TABLET PO SCH ×2 (08:20→16:14)
[2016-10-09] MEDS: LORATADINE 10 MG TABLET PO SCH (08:20)
[2016-10-09] MEDS: GABAPENTIN 300 MG CAPSULE PO SCH ×3 (08:20→16:14)
[2016-10-09] MEDS: NALTREXONE HCL 50 MG TABLET PO SCH (08:20)
[2016-10-09] MEDS: OLANZapine 5 MG RAPDIS TABLET PO PRN ×2 (11:43→22:28)
[2016-10-09 16:19] VITALS: BP 120/68
[2016-10-09] MEDS: GuaiFENesin/D-METHORPHAN [SUGAR-FREE] 200-20MG/10 ML SYRUP UDCUP PO PRN (18:28)
[2016-10-09] MEDS: ZOLPIDEM TARTRATE 10 MG TABLET PO PRN (20:19)
[2016-10-09] MEDS: DIVALPROEX SODIUM 500 MG DR TABLET PO SCH (20:19)
[2016-10-09] MEDS: DOCUSATE SODIUM 100 MG CAPSULE PO SCH (20:20)
[2016-10-10 04:53] VITALS: BP 110/73
[2016-10-10] MEDS: OLANZapine 5 MG RAPDIS TABLET PO PRN ×3 (04:53→19:31)
[2016-10-10] MEDS: LEVOTHYROXINE SODIUM 100 MCG TABLET PO SCH (06:29)
[2016-10-10 08:03] VITALS: BP 132/84
[2016-10-10] MEDS: PHENYLEPHRINE/SHK LV/MIN OIL/PET 57 GM OINTMENT TP PRN (08:22)
[2016-10-10] MEDS: LACTULOSE 20 GM/30 ML SOLUTION UDCUP PO SCH ×3 (08:22→16:30)
[2016-10-10] MEDS: NALTREXONE HCL 50 MG TABLET PO SCH (08:23)
[2016-10-10] MEDS: MULTIVITAMINS WITH MINERALS, THERAPEUTIC TABLET PO SCH (08:23)
[2016-10-10] MEDS: CloZAPine 100 MG TABLET PO SCH ×2 (08:23→16:30)
[2016-10-10] MEDS: DiphenhydrAMINE HCL 25 MG CAPSULE PO SCH (08:23)
[2016-10-10] MEDS: GABAPENTIN 300 MG CAPSULE PO SCH ×3 (08:23→16:30)
[2016-10-10] MEDS: LORATADINE 10 MG TABLET PO SCH (08:24)
[2016-10-10] MEDS: ACETAMINOPHEN 325 MG TABLET PO PRN (08:40)
[2016-10-10] MEDS: LORazepam 0.5 MG TABLET PO PRN ×2 (08:40→15:47)
[2016-10-10] MEDS: NICOTINE 21 MG/24 HOUR PATCH TD SCH (08:51)
[2016-10-10 16:10] VITALS: BP 124/83
[2016-10-10] MEDS: ZOLPIDEM TARTRATE 10 MG TABLET PO PRN (20:38)
[2016-10-10] MEDS: DOCUSATE SODIUM 100 MG CAPSULE PO SCH (20:38)
[2016-10-10] MEDS: DIVALPROEX SODIUM 500 MG DR TABLET PO SCH (20:38)
[2016-10-11 00:25] VITALS: BP 121/96
[2016-10-11 01:37] VITALS: BP 135/76
[2016-10-11] MEDS: OLANZapine 5 MG RAPDIS TABLET PO PRN ×2 (01:37→11:52)
[2016-10-11] MEDS: LEVOTHYROXINE SODIUM 100 MCG TABLET PO SCH (07:05)
[2016-10-11 08:04] VITALS: BP 122/79
[2016-10-11] MEDS: LACTULOSE 20 GM/30 ML SOLUTION UDCUP PO SCH ×3 (08:41→16:14)
[2016-10-11] MEDS: LORazepam 0.5 MG TABLET PO PRN ×2 (08:41→16:15)
[2016-10-11] MEDS: NICOTINE 21 MG/24 HOUR PATCH TD SCH (08:41)
[2016-10-11] MEDS: MULTIVITAMINS WITH MINERALS, THERAPEUTIC TABLET PO SCH (08:41)
[2016-10-11] MEDS: CloZAPine 100 MG TABLET PO SCH ×2 (08:42→16:13)
[2016-10-11] MEDS: LORATADINE 10 MG TABLET PO SCH (08:42)
[2016-10-11] MEDS: DiphenhydrAMINE HCL 25 MG CAPSULE PO SCH (08:42)
[2016-10-11] MEDS: NALTREXONE HCL 50 MG TABLET PO SCH (08:42)
[2016-10-11] MEDS: GABAPENTIN 300 MG CAPSULE PO SCH ×3 (08:42→16:14)
[2016-10-11 16:08] VITALS: BP 117/85
[2016-10-11] MEDS: DIVALPROEX SODIUM 500 MG DR TABLET PO SCH (20:22)
[2016-10-11] MEDS: ZOLPIDEM TARTRATE 10 MG TABLET PO PRN (20:22)
[2016-10-11] MEDS: DOCUSATE SODIUM 100 MG CAPSULE PO SCH (20:22)
[2016-10-11] MEDS: GuaiFENesin/D-METHORPHAN [SUGAR-FREE] 200-20MG/10 ML SYRUP UDCUP PO PRN (21:02)
[2016-10-12] MEDS: LEVOTHYROXINE SODIUM 100 MCG TABLET PO SCH (06:41)
[2016-10-12 07:11] VITALS: BP 120/82
[2016-10-12] MEDS: GABAPENTIN 300 MG CAPSULE PO SCH ×3 (08:42→16:16)
[2016-10-12] MEDS: NALTREXONE HCL 50 MG TABLET PO SCH (08:42)
[2016-10-12] MEDS: DiphenhydrAMINE HCL 25 MG CAPSULE PO SCH (08:42)
[2016-10-12] MEDS: LACTULOSE 20 GM/30 ML SOLUTION UDCUP PO SCH ×3 (08:42→16:16)
[2016-10-12] MEDS: NICOTINE 21 MG/24 HOUR PATCH TD SCH (08:42)
[2016-10-12] MEDS: LORATADINE 10 MG TABLET PO SCH (08:42)
[2016-10-12] MEDS: MULTIVITAMINS WITH MINERALS, THERAPEUTIC TABLET PO SCH (08:42)
[2016-10-12] MEDS: CloZAPine 100 MG TABLET PO SCH ×2 (08:43→16:16)
[2016-10-12 08:47] VITALS: BP 108/77
[2016-10-12 08:51] LABS: BASOPHILS % (AUTO) 0.5 % (0.0-2.0); EOSINOPHILS % (AUTO) 1.6 % (1.0-6.0); HEMATOCRIT 39.9 % (41-53); HEMOGLOBIN 13.3 g/dL (13.5-17.5); LYMPHOCYTES # (AUTO) 2.3 K/uL (1.0-4.8); LYMPHOCYTES % (AUTO) 38.2 % (22.0-44.0); MEAN CORPUSCULAR HEMOGLOBIN 32.1 pg (26.0-34.0); MEAN CORPUSCULAR HGB CONC 33.3 G/dL (31.0-37.0); MEAN CORPUSCULAR VOLUME 96 fL (80-100); MONOCYTES # (AUTO) 0.5 K/uL (0.1-1.0); MONOCYTES % (AUTO) 9.2 % (2.0-9.0); NEUTROPHILS % (AUTO) 50.5 % (40.0-70.0); PLATELET COUNT (AUTO) 273 K/uL (150-450); RED BLOOD CELL COUNT(AUTO) 4.13 MIL/uL (4.50-5.90); RED CELL DISTRIBUTION WIDTH 12.3 % (11.5-14.5); WHITE BLOOD COUNT (AUTO) 5.9 K/uL (4.5-11.0)
[2016-10-12] MEDS: OLANZapine 5 MG RAPDIS TABLET PO PRN (09:50)
[2016-10-12] MEDS: LORazepam 0.5 MG TABLET PO PRN ×2 (12:32→17:20)
[2016-10-12 16:32] VITALS: BP 122/77
[2016-10-12] MEDS: MAG HYDROX/AL HYDROX/SIMETH ES 30 ML SUSPENSION UDCUP PO PRN (20:01)
[2016-10-12] MEDS: DOCUSATE SODIUM 100 MG CAPSULE PO SCH (20:02)
[2016-10-12] MEDS: DIVALPROEX SODIUM 500 MG DR TABLET PO SCH (20:02)
[2016-10-12] MEDS: ZOLPIDEM TARTRATE 10 MG TABLET PO PRN (21:29)
[2016-10-13 05:47] VITALS: BP 123/74
[2016-10-13] MEDS: OLANZapine 5 MG RAPDIS TABLET PO PRN (06:14)
[2016-10-13] MEDS: LEVOTHYROXINE SODIUM 100 MCG TABLET PO SCH (06:37)
[2016-10-13 08:15] VITALS: BP 124/76
[2016-10-13] MEDS: NICOTINE 21 MG/24 HOUR PATCH TD SCH (08:46)
[2016-10-13] MEDS: LACTULOSE 20 GM/30 ML SOLUTION UDCUP PO SCH ×3 (08:46→16:06)
[2016-10-13] MEDS: LORATADINE 10 MG TABLET PO SCH (08:47)
[2016-10-13] MEDS: MULTIVITAMINS WITH MINERALS, THERAPEUTIC TABLET PO SCH (08:47)
[2016-10-13] MEDS: CloZAPine 100 MG TABLET PO SCH ×2 (08:47→16:06)
[2016-10-13] MEDS: NALTREXONE HCL 50 MG TABLET PO SCH (08:47)
[2016-10-13] MEDS: DiphenhydrAMINE HCL 25 MG CAPSULE PO SCH (08:47)
[2016-10-13] MEDS: GABAPENTIN 300 MG CAPSULE PO SCH ×3 (08:47→16:06)
[2016-10-13] MEDS: LORazepam 0.5 MG TABLET PO PRN (16:01)
[2016-10-13 16:28] VITALS: BP 135/83
[2016-10-13] MEDS: DOCUSATE SODIUM 100 MG CAPSULE PO SCH (20:57)
[2016-10-13] MEDS: DIVALPROEX SODIUM 500 MG DR TABLET PO SCH (20:57)
[2016-10-13] MEDS: ZOLPIDEM TARTRATE 10 MG TABLET PO PRN (21:02)
[2016-10-14 05:17] VITALS: BP 107/64
[2016-10-14] MEDS: OLANZapine 5 MG RAPDIS TABLET PO PRN ×2 (05:30→16:52)
[2016-10-14] MEDS: LEVOTHYROXINE SODIUM 100 MCG TABLET PO SCH (07:10)
[2016-10-14] MEDS: LACTULOSE 20 GM/30 ML SOLUTION UDCUP PO SCH ×3 (09:19→16:48)
[2016-10-14] MEDS: NICOTINE 21 MG/24 HOUR PATCH TD SCH (09:19)
[2016-10-14] MEDS: DiphenhydrAMINE HCL 25 MG CAPSULE PO SCH (09:19)
[2016-10-14] MEDS: NALTREXONE HCL 50 MG TABLET PO SCH (09:20)
[2016-10-14] MEDS: CloZAPine 100 MG TABLET PO SCH ×2 (09:20→16:52)
[2016-10-14] MEDS: GABAPENTIN 300 MG CAPSULE PO SCH ×3 (09:20→16:52)
[2016-10-14] MEDS: LORATADINE 10 MG TABLET PO SCH (09:20)
[2016-10-14] MEDS: MULTIVITAMINS WITH MINERALS, THERAPEUTIC TABLET PO SCH (09:20)
[2016-10-14] MEDS: LORazepam 0.5 MG TABLET PO PRN ×2 (10:07→18:16)
[2016-10-14 12:05] LABS: CLOZAPINE 246 ng/mL (350-650); CLOZAPINE & NORCLOZAPINE 340 ng/mL; NORCLOZAPINE 94 ng/mL (Not Estab.)
[2016-10-14 16:02] VITALS: BP 108/65
[2016-10-14] MEDS: DIVALPROEX SODIUM 500 MG DR TABLET PO SCH (20:45)
[2016-10-14] MEDS: DOCUSATE SODIUM 100 MG CAPSULE PO SCH (20:45)
[2016-10-15 04:15] VITALS: BP 115/69
[2016-10-15] MEDS: LORazepam 0.5 MG TABLET PO PRN ×3 (04:23→17:15)
[2016-10-15] MEDS: LEVOTHYROXINE SODIUM 100 MCG TABLET PO SCH (06:52)
[2016-10-15 08:04] VITALS: BP 128/89
[2016-10-15] MEDS: NICOTINE 21 MG/24 HOUR PATCH TD SCH (08:25)
[2016-10-15] MEDS: LACTULOSE 20 GM/30 ML SOLUTION UDCUP PO SCH ×3 (08:25→17:17)
[2016-10-15] MEDS: NALTREXONE HCL 50 MG TABLET PO SCH (08:26)
[2016-10-15] MEDS: DiphenhydrAMINE HCL 25 MG CAPSULE PO SCH (08:26)
[2016-10-15] MEDS: GABAPENTIN 300 MG CAPSULE PO SCH ×3 (08:26→17:15)
[2016-10-15] MEDS: CloZAPine 100 MG TABLET PO SCH ×2 (08:26→17:16)
[2016-10-15] MEDS: MULTIVITAMINS WITH MINERALS, THERAPEUTIC TABLET PO SCH (08:26)
[2016-10-15] MEDS: LORATADINE 10 MG TABLET PO SCH (08:26)
[2016-10-15] MEDS: OLANZapine 5 MG RAPDIS TABLET PO PRN ×2 (08:27→17:17)
[2016-10-15 16:00] VITALS: BP 121/88
[2016-10-15] MEDS: GuaiFENesin/D-METHORPHAN [SUGAR-FREE] 200-20MG/10 ML SYRUP UDCUP PO PRN (18:50)
[2016-10-15] MEDS: DIVALPROEX SODIUM 500 MG DR TABLET PO SCH (21:25)
[2016-10-15] MEDS: DiphenhydrAMINE HCL 50 MG CAPSULE PO PRN (21:25)
[2016-10-15] MEDS: ZOLPIDEM TARTRATE 10 MG TABLET PO PRN (21:25)
[2016-10-15] MEDS: DOCUSATE SODIUM 100 MG CAPSULE PO SCH (21:25)
[2016-10-16 03:37] VITALS: BP 116/65
[2016-10-16] MEDS: LORazepam 0.5 MG TABLET PO PRN ×2 (05:19→16:44)
[2016-10-16] MEDS: LEVOTHYROXINE SODIUM 100 MCG TABLET PO SCH (06:38)
[2016-10-16] MEDS: NICOTINE 21 MG/24 HOUR PATCH TD SCH (08:19)
[2016-10-16] MEDS: LACTULOSE 20 GM/30 ML SOLUTION UDCUP PO SCH ×3 (08:19→16:43)
[2016-10-16] MEDS: DiphenhydrAMINE HCL 25 MG CAPSULE PO SCH (08:20)
[2016-10-16] MEDS: CloZAPine 100 MG TABLET PO SCH ×2 (08:20→16:43)
[2016-10-16] MEDS: MULTIVITAMINS WITH MINERALS, THERAPEUTIC TABLET PO SCH (08:21)
[2016-10-16] MEDS: NALTREXONE HCL 50 MG TABLET PO SCH (08:21)
[2016-10-16] MEDS: LORATADINE 10 MG TABLET PO SCH (08:21)
[2016-10-16] MEDS: GABAPENTIN 300 MG CAPSULE PO SCH ×3 (08:21→16:43)
[2016-10-16 08:34] VITALS: BP 127/73
[2016-10-16] MEDS: OLANZapine 5 MG RAPDIS TABLET PO PRN ×2 (09:51→19:10)
[2016-10-16] MEDS: DiphenhydrAMINE HCL 50 MG CAPSULE PO PRN (12:27)
[2016-10-16] MEDS: PHENYLEPHRINE/SHK LV/MIN OIL/PET 57 GM OINTMENT TP PRN (14:46)
[2016-10-16 16:13] VITALS: BP 125/69
[2016-10-16] MEDS: DOCUSATE SODIUM 100 MG CAPSULE PO SCH (21:16)
[2016-10-16] MEDS: DIVALPROEX SODIUM 500 MG DR TABLET PO SCH (21:17)
[2016-10-17 00:03] VITALS: BP 106/64
[2016-10-17] MEDS: LEVOTHYROXINE SODIUM 100 MCG TABLET PO SCH (07:22)
[2016-10-17 08:15] VITALS: BP 112/66
[2016-10-17] MEDS: NALTREXONE HCL 50 MG TABLET PO SCH (08:28)
[2016-10-17] MEDS: LACTULOSE 20 GM/30 ML SOLUTION UDCUP PO SCH ×3 (08:28→16:51)
[2016-10-17] MEDS: GABAPENTIN 300 MG CAPSULE PO SCH ×3 (08:28→16:52)
[2016-10-17] MEDS: MULTIVITAMINS WITH MINERALS, THERAPEUTIC TABLET PO SCH (08:28)
[2016-10-17] MEDS: NICOTINE 21 MG/24 HOUR PATCH TD SCH (08:28)
[2016-10-17] MEDS: DiphenhydrAMINE HCL 25 MG CAPSULE PO SCH (08:29)
[2016-10-17] MEDS: CloZAPine 100 MG TABLET PO SCH ×2 (08:29→16:52)
[2016-10-17] MEDS: LORATADINE 10 MG TABLET PO SCH (08:29)
[2016-10-17] MEDS: OLANZapine 5 MG RAPDIS TABLET PO PRN (09:18)
[2016-10-17] MEDS: LORazepam 0.5 MG TABLET PO PRN ×2 (10:47→16:52)
[2016-10-17 16:34] VITALS: BP 125/78
[2016-10-17] MEDS: DIVALPROEX SODIUM 500 MG DR TABLET PO SCH (21:11)
[2016-10-17] MEDS: ZOLPIDEM TARTRATE 10 MG TABLET PO PRN (21:11)
[2016-10-17] MEDS: DOCUSATE SODIUM 100 MG CAPSULE PO SCH (21:11)
[2016-10-18 01:41] VITALS: BP 111/67
[2016-10-18 03:57] VITALS: BP 116/72
[2016-10-18] MEDS: LORazepam 0.5 MG TABLET PO PRN ×3 (03:59→16:46)
[2016-10-18] MEDS: LEVOTHYROXINE SODIUM 100 MCG TABLET PO SCH (06:22)
[2016-10-18] MEDS: LACTULOSE 20 GM/30 ML SOLUTION UDCUP PO SCH ×3 (08:48→16:29)
[2016-10-18] MEDS: NALTREXONE HCL 50 MG TABLET PO SCH (08:49)
[2016-10-18] MEDS: DiphenhydrAMINE HCL 25 MG CAPSULE PO SCH (08:49)
[2016-10-18] MEDS: OLANZapine 5 MG RAPDIS TABLET PO PRN (08:49)
[2016-10-18] MEDS: CloZAPine 100 MG TABLET PO SCH ×2 (08:49→16:29)
[2016-10-18] MEDS: GABAPENTIN 300 MG CAPSULE PO SCH ×3 (08:49→16:29)
[2016-10-18] MEDS: NICOTINE 21 MG/24 HOUR PATCH TD SCH (08:49)
[2016-10-18] MEDS: LORATADINE 10 MG TABLET PO SCH (08:49)
[2016-10-18] MEDS: MULTIVITAMINS WITH MINERALS, THERAPEUTIC TABLET PO SCH (08:49)
[2016-10-18 09:06] VITALS: BP 131/80
[2016-10-18] MEDS: DiphenhydrAMINE HCL 50 MG CAPSULE PO PRN (13:19)
[2016-10-18] MEDS: PHENYLEPHRINE/SHK LV/MIN OIL/PET 57 GM OINTMENT TP PRN (13:19)
[2016-10-18 16:04] VITALS: BP 113/67
[2016-10-18] MEDS: DIVALPROEX SODIUM 500 MG DR TABLET PO SCH (20:16)
[2016-10-18] MEDS: DOCUSATE SODIUM 100 MG CAPSULE PO SCH (20:16)
[2016-10-18] MEDS: ZOLPIDEM TARTRATE 10 MG TABLET PO PRN (20:48)
[2016-10-18] MEDS: MAG HYDROX/AL HYDROX/SIMETH ES 30 ML SUSPENSION UDCUP PO PRN (22:12)
[2016-10-19 00:24] VITALS: BP 138/79
[2016-10-19] MEDS: DiphenhydrAMINE HCL 50 MG CAPSULE PO PRN ×2 (00:24→16:26)
[2016-10-19] MEDS: ACETAMINOPHEN 325 MG TABLET PO PRN (01:33)
[2016-10-19 03:10] VITALS: BP 120/80
[2016-10-19] MEDS: OLANZapine 5 MG RAPDIS TABLET PO PRN ×2 (03:34→12:24)
[2016-10-19] MEDS: LEVOTHYROXINE SODIUM 100 MCG TABLET PO SCH (07:01)
[2016-10-19 08:02] VITALS: BP 112/73
[2016-10-19] MEDS: DiphenhydrAMINE HCL 25 MG CAPSULE PO SCH (08:11)
[2016-10-19] MEDS: NALTREXONE HCL 50 MG TABLET PO SCH (08:12)
[2016-10-19] MEDS: CloZAPine 100 MG TABLET PO SCH ×2 (08:12→16:20)
[2016-10-19] MEDS: NICOTINE 21 MG/24 HOUR PATCH TD SCH (08:12)
[2016-10-19] MEDS: LORATADINE 10 MG TABLET PO SCH (08:12)
[2016-10-19] MEDS: MAG HYDROX/AL HYDROX/SIMETH ES 30 ML SUSPENSION UDCUP PO PRN (08:12)
[2016-10-19 08:13] LABS: BASOPHILS # (AUTO) 0.02 K/uL (0.00-0.20); BASOPHILS % (AUTO) 0.4 % (0.0-2.0); EOSINOPHILS # (AUTO) 0.08 K/uL (0.00-0.70); EOSINOPHILS % (AUTO) 1.36 % (1.0-6.0); HEMATOCRIT 41.3 % (41-53); HEMOGLOBIN 13.9 g/dL (13.5-17.5); LYMPHOCYTES # (AUTO) 2.4 K/uL (1.0-4.8); LYMPHOCYTES % (AUTO) 41.6 % (22.0-44.0); MEAN CORPUSCULAR HEMOGLOBIN 32.6 pg (26.0-34.0); MEAN CORPUSCULAR HGB CONC 33.7 G/dL (31.0-37.0); MEAN CORPUSCULAR VOLUME 97 fL (80-100); MONOCYTES # (AUTO) 0.5 K/uL (0.1-1.0); MONOCYTES % (AUTO) 8.8 % (2.0-9.0); NEUTROPHILS # (AUTO) 2.7 K/uL (1.8-7.7); NEUTROPHILS % (AUTO) 47.9 % (40.0-70.0); PLATELET COUNT (AUTO) 228 K/uL (150-450); RED BLOOD CELL COUNT(AUTO) 4.27 MIL/uL (4.50-5.90); RED CELL DISTRIBUTION WIDTH 12.4 % (11.5-14.5); WHITE BLOOD COUNT (AUTO) 5.7 K/uL (4.5-11.0)
[2016-10-19] MEDS: LACTULOSE 20 GM/30 ML SOLUTION UDCUP PO SCH ×3 (08:17→16:20)
[2016-10-19] MEDS: GABAPENTIN 300 MG CAPSULE PO SCH ×3 (08:17→16:22)
[2016-10-19] MEDS: MULTIVITAMINS WITH MINERALS, THERAPEUTIC TABLET PO SCH (08:22)
[2016-10-19] MEDS: PHENYLEPHRINE/SHK LV/MIN OIL/PET 57 GM OINTMENT TP PRN (14:47)
[2016-10-19 16:00] VITALS: BP 136/75
[2016-10-19] MEDS: ZOLPIDEM TARTRATE 10 MG TABLET PO PRN (20:03)
[2016-10-19] MEDS: DOCUSATE SODIUM 100 MG CAPSULE PO SCH (20:03)
[2016-10-19] MEDS: DIVALPROEX SODIUM 500 MG DR TABLET PO SCH (20:03)
[2016-10-20] MEDS: LEVOTHYROXINE SODIUM 100 MCG TABLET PO SCH (06:36)
[2016-10-20 06:57] VITALS: BP 130/75
[2016-10-20 08:04] VITALS: BP 124/75
[2016-10-20] MEDS: GABAPENTIN 300 MG CAPSULE PO SCH ×3 (08:35→16:02)
[2016-10-20] MEDS: NICOTINE 21 MG/24 HOUR PATCH TD SCH (08:35)
[2016-10-20] MEDS: LACTULOSE 20 GM/30 ML SOLUTION UDCUP PO SCH ×3 (08:35→16:01)
[2016-10-20] MEDS: NALTREXONE HCL 50 MG TABLET PO SCH (08:36)
[2016-10-20] MEDS: DiphenhydrAMINE HCL 25 MG CAPSULE PO SCH (08:36)
[2016-10-20] MEDS: CloZAPine 100 MG TABLET PO SCH ×2 (08:36→16:02)
[2016-10-20] MEDS: LORATADINE 10 MG TABLET PO SCH (08:36)
[2016-10-20] MEDS: MULTIVITAMINS WITH MINERALS, THERAPEUTIC TABLET PO SCH (08:36)
[2016-10-20] MEDS: OLANZapine 5 MG RAPDIS TABLET PO PRN (08:39)
[2016-10-20 16:00] VITALS: BP 113/82
[2016-10-20] MEDS: LORazepam 0.5 MG TABLET PO PRN (16:02)
[2016-10-20] MEDS: DiphenhydrAMINE HCL 50 MG CAPSULE PO PRN (19:17)
[2016-10-20] MEDS: DOCUSATE SODIUM 100 MG CAPSULE PO SCH (20:15)
[2016-10-20] MEDS: DIVALPROEX SODIUM 500 MG DR TABLET PO SCH (20:15)
[2016-10-20] MEDS: ZOLPIDEM TARTRATE 10 MG TABLET PO PRN (21:15)
[2016-10-21] MEDS: LEVOTHYROXINE SODIUM 100 MCG TABLET PO SCH (06:22)
[2016-10-21 07:06] VITALS: BP 110/81
[2016-10-21 08:02] VITALS: BP 103/57
[2016-10-21] MEDS: NICOTINE 21 MG/24 HOUR PATCH TD SCH (09:00)
[2016-10-21] MEDS: MULTIVITAMINS WITH MINERALS, THERAPEUTIC TABLET PO SCH (09:00)
[2016-10-21] MEDS: LACTULOSE 20 GM/30 ML SOLUTION UDCUP PO SCH ×3 (09:00→16:28)
[2016-10-21] MEDS: CloZAPine 100 MG TABLET PO SCH ×2 (09:01→16:28)
[2016-10-21] MEDS: LORATADINE 10 MG TABLET PO SCH (09:01)
[2016-10-21] MEDS: DiphenhydrAMINE HCL 25 MG CAPSULE PO SCH (09:01)
[2016-10-21] MEDS: NALTREXONE HCL 50 MG TABLET PO SCH (09:01)
[2016-10-21] MEDS: GABAPENTIN 300 MG CAPSULE PO SCH ×3 (09:01→16:28)
[2016-10-21] MEDS: LORazepam 0.5 MG TABLET PO PRN ×2 (10:19→17:52)
[2016-10-21] MEDS: DiphenhydrAMINE HCL 50 MG CAPSULE PO PRN (13:30)
[2016-10-21] MEDS: OLANZapine 5 MG RAPDIS TABLET PO PRN (15:49)
[2016-10-21 15:55] LABS: CLOZAPINE 381 ng/mL (350-650); CLOZAPINE & NORCLOZAPINE 511 ng/mL; NORCLOZAPINE 130 ng/mL (Not Estab.)
[2016-10-21 16:06] VITALS: BP 125/76
[2016-10-21] MEDS: ZOLPIDEM TARTRATE 10 MG TABLET PO PRN (20:25)
[2016-10-21] MEDS: DOCUSATE SODIUM 100 MG CAPSULE PO SCH (20:25)
[2016-10-21] MEDS: DIVALPROEX SODIUM 500 MG DR TABLET PO SCH (20:26)
[2016-10-22 02:00] VITALS: BP 114/74
[2016-10-22] MEDS: DiphenhydrAMINE HCL 50 MG CAPSULE PO PRN ×2 (02:05→11:05)
[2016-10-22] MEDS: LEVOTHYROXINE SODIUM 100 MCG TABLET PO SCH (05:56)
[2016-10-22] MEDS: OLANZapine 5 MG RAPDIS TABLET PO PRN ×3 (06:42→16:05)
[2016-10-22 09:11] VITALS: BP 102/55
[2016-10-22] MEDS: GABAPENTIN 300 MG CAPSULE PO SCH ×3 (09:11→16:42)
[2016-10-22] MEDS: MULTIVITAMINS WITH MINERALS, THERAPEUTIC TABLET PO SCH (09:11)
[2016-10-22] MEDS: DiphenhydrAMINE HCL 25 MG CAPSULE PO SCH (09:11)
[2016-10-22] MEDS: LACTULOSE 20 GM/30 ML SOLUTION UDCUP PO SCH ×3 (09:11→16:41)
[2016-10-22] MEDS: NICOTINE 21 MG/24 HOUR PATCH TD SCH (09:11)
[2016-10-22] MEDS: NALTREXONE HCL 50 MG TABLET PO SCH (09:11)
[2016-10-22] MEDS: LORATADINE 10 MG TABLET PO SCH (09:11)
[2016-10-22] MEDS: CloZAPine 100 MG TABLET PO SCH ×2 (09:12→16:42)
[2016-10-22] MEDS: LORazepam 0.5 MG TABLET PO PRN ×2 (10:20→17:25)
[2016-10-22 17:37] VITALS: BP 131/68
[2016-10-22] MEDS: GuaiFENesin/D-METHORPHAN [SUGAR-FREE] 200-20MG/10 ML SYRUP UDCUP PO PRN (19:59)
[2016-10-22] MEDS: DIVALPROEX SODIUM 500 MG DR TABLET PO SCH (20:19)
[2016-10-22] MEDS: DOCUSATE SODIUM 100 MG CAPSULE PO SCH (20:19)
[2016-10-22] MEDS: ZOLPIDEM TARTRATE 10 MG TABLET PO PRN (21:09)
[2016-10-23 00:03] VITALS: BP 132/78
[2016-10-23] MEDS: DiphenhydrAMINE HCL 50 MG CAPSULE PO PRN ×2 (00:05→12:52)
[2016-10-23 04:50] VITALS: BP 128/78
[2016-10-23] MEDS: LORazepam 0.5 MG TABLET PO PRN ×2 (04:52→10:30)
[2016-10-23] MEDS: LEVOTHYROXINE SODIUM 100 MCG TABLET PO SCH (05:43)
[2016-10-23] MEDS: LACTULOSE 20 GM/30 ML SOLUTION UDCUP PO SCH ×3 (08:16→16:39)
[2016-10-23] MEDS: DiphenhydrAMINE HCL 25 MG CAPSULE PO SCH (08:17)
[2016-10-23] MEDS: GABAPENTIN 300 MG CAPSULE PO SCH ×3 (08:17→16:40)
[2016-10-23] MEDS: MULTIVITAMINS WITH MINERALS, THERAPEUTIC TABLET PO SCH (08:17)
[2016-10-23] MEDS: NICOTINE 21 MG/24 HOUR PATCH TD SCH (08:17)
[2016-10-23] MEDS: CloZAPine 100 MG TABLET PO SCH ×2 (08:17→16:40)
[2016-10-23] MEDS: NALTREXONE HCL 50 MG TABLET PO SCH (08:18)
[2016-10-23] MEDS: LORATADINE 10 MG TABLET PO SCH (08:18)
[2016-10-23 08:27] VITALS: BP 113/73
[2016-10-23] MEDS: OLANZapine 5 MG RAPDIS TABLET PO PRN ×2 (08:36→14:17)
[2016-10-23 16:00] VITALS: BP 135/87
[2016-10-23] MEDS: DOCUSATE SODIUM 100 MG CAPSULE PO SCH (21:50)
[2016-10-23] MEDS: DIVALPROEX SODIUM 500 MG DR TABLET PO SCH (21:50)
[2016-10-24] MEDS: PROMETHAZINE HCL 25 MG TABLET PO PRN (06:01)
[2016-10-24] MEDS: LEVOTHYROXINE SODIUM 100 MCG TABLET PO SCH (06:24)
[2016-10-24] MEDS: LACTULOSE 20 GM/30 ML SOLUTION UDCUP PO SCH ×3 (09:00→16:22)
[2016-10-24] MEDS: NICOTINE 21 MG/24 HOUR PATCH TD SCH (09:00)
[2016-10-24 09:23] VITALS: BP 106/63
[2016-10-24] MEDS: CloZAPine 100 MG TABLET PO SCH ×2 (10:44→16:22)
[2016-10-24] MEDS: GABAPENTIN 300 MG CAPSULE PO SCH ×3 (10:44→16:22)
[2016-10-24] MEDS: DiphenhydrAMINE HCL 25 MG CAPSULE PO SCH (10:44)
[2016-10-24] MEDS: LORATADINE 10 MG TABLET PO SCH (10:44)
[2016-10-24] MEDS: NALTREXONE HCL 50 MG TABLET PO SCH (10:45)
[2016-10-24] MEDS: MULTIVITAMINS WITH MINERALS, THERAPEUTIC TABLET PO SCH (10:45)
[2016-10-24] MEDS: MAG HYDROX/AL HYDROX/SIMETH ES 30 ML SUSPENSION UDCUP PO PRN (10:54)
[2016-10-24] MEDS: LORazepam 0.5 MG TABLET PO PRN (11:54)
[2016-10-24] MEDS: OLANZapine 5 MG RAPDIS TABLET PO PRN (16:22)
[2016-10-24] MEDS: DOCUSATE SODIUM 100 MG CAPSULE PO SCH (20:30)
[2016-10-24] MEDS: DIVALPROEX SODIUM 500 MG DR TABLET PO SCH (20:30)
[2016-10-24] MEDS: ZOLPIDEM TARTRATE 10 MG TABLET PO PRN (22:07)
[2016-10-25 02:30] VITALS: BP 120/89
[2016-10-25] MEDS: DiphenhydrAMINE HCL 50 MG CAPSULE PO PRN ×2 (02:30→10:05)
[2016-10-25] MEDS: LEVOTHYROXINE SODIUM 100 MCG TABLET PO SCH (06:40)
[2016-10-25 08:04] VITALS: BP 122/78
[2016-10-25] MEDS: DiphenhydrAMINE HCL 25 MG CAPSULE PO SCH (08:43)
[2016-10-25] MEDS: LACTULOSE 20 GM/30 ML SOLUTION UDCUP PO SCH ×3 (08:44→16:21)
[2016-10-25] MEDS: OLANZapine 5 MG RAPDIS TABLET PO PRN ×2 (08:44→16:22)
[2016-10-25] MEDS: NALTREXONE HCL 50 MG TABLET PO SCH (08:44)
[2016-10-25] MEDS: CloZAPine 100 MG TABLET PO SCH ×2 (08:44→16:21)
[2016-10-25] MEDS: LORATADINE 10 MG TABLET PO SCH (08:44)
[2016-10-25] MEDS: GABAPENTIN 300 MG CAPSULE PO SCH ×3 (08:44→16:21)
[2016-10-25] MEDS: MULTIVITAMINS WITH MINERALS, THERAPEUTIC TABLET PO SCH (08:44)
[2016-10-25] MEDS: NICOTINE 21 MG/24 HOUR PATCH TD SCH (08:45)
[2016-10-25] MEDS: LORazepam 0.5 MG TABLET PO PRN ×2 (10:04→18:01)
[2016-10-25] MEDS: PHENYLEPHRINE/SHK LV/MIN OIL/PET 57 GM OINTMENT TP PRN (12:24)
[2016-10-25 16:00] VITALS: BP 135/88
[2016-10-25] MEDS: DIVALPROEX SODIUM 500 MG DR TABLET PO SCH (20:04)
[2016-10-25] MEDS: DOCUSATE SODIUM 100 MG CAPSULE PO SCH (20:04)
[2016-10-25] MEDS: ZOLPIDEM TARTRATE 10 MG TABLET PO PRN (21:05)
[2016-10-26] MEDS: ACETAMINOPHEN 325 MG TABLET PO PRN
[2016-10-26 00:58] VITALS: BP 117/78
[2016-10-26] MEDS: DiphenhydrAMINE HCL 50 MG CAPSULE PO PRN ×2 (01:47→16:49)
[2016-10-26] MEDS: LEVOTHYROXINE SODIUM 100 MCG TABLET PO SCH (06:24)
[2016-10-26 08:10] VITALS: BP 133/87
[2016-10-26] MEDS: LACTULOSE 20 GM/30 ML SOLUTION UDCUP PO SCH ×3 (08:13→16:29)
[2016-10-26] MEDS: DiphenhydrAMINE HCL 25 MG CAPSULE PO SCH (08:13)
[2016-10-26] MEDS: NICOTINE 21 MG/24 HOUR PATCH TD SCH (08:13)
[2016-10-26] MEDS: GABAPENTIN 300 MG CAPSULE PO SCH ×3 (08:13→16:29)
[2016-10-26] MEDS: MULTIVITAMINS WITH MINERALS, THERAPEUTIC TABLET PO SCH (08:14)
[2016-10-26] MEDS: LORATADINE 10 MG TABLET PO SCH (08:14)
[2016-10-26] MEDS: CloZAPine 100 MG TABLET PO SCH ×2 (08:14→16:30)
[2016-10-26] MEDS: NALTREXONE HCL 50 MG TABLET PO SCH (08:14)
[2016-10-26] MEDS: LORazepam 0.5 MG TABLET PO PRN (08:17)
[2016-10-26 08:26] LABS: BASOPHILS % (AUTO) 0.3 % (0.0-2.0); EOSINOPHILS % (AUTO) 1.9 % (1.0-6.0); HEMATOCRIT 40.3 % (41-53); HEMOGLOBIN 13.2 g/dL (13.5-17.5); LYMPHOCYTES # (AUTO) 2.5 K/uL (1.0-4.8); LYMPHOCYTES % (AUTO) 43.6 % (22.0-44.0); MEAN CORPUSCULAR HEMOGLOBIN 31.6 pg (26.0-34.0); MEAN CORPUSCULAR HGB CONC 32.6 G/dL (31.0-37.0); MEAN CORPUSCULAR VOLUME 97 fL (80-100); MONOCYTES # (AUTO) 0.6 K/uL (0.1-1.0); MONOCYTES % (AUTO) 9.7 % (2.0-9.0); NEUTROPHILS # (AUTO) 2.5 K/uL (1.8-7.7); NEUTROPHILS % (AUTO) 44.5 % (40.0-70.0); PLATELET COUNT (AUTO) 254 K/uL (150-450); RED BLOOD CELL COUNT(AUTO) 4.16 MIL/uL (4.50-5.90); RED CELL DISTRIBUTION WIDTH 12.5 % (11.5-14.5); WHITE BLOOD COUNT (AUTO) 5.7 K/uL (4.5-11.0)
[2016-10-26] MEDS: OLANZapine 5 MG RAPDIS TABLET PO PRN (12:06)
[2016-10-26 16:00] VITALS: BP 132/79
[2016-10-26] MEDS: DOCUSATE SODIUM 100 MG CAPSULE PO SCH (20:05)
[2016-10-26] MEDS: DIVALPROEX SODIUM 500 MG DR TABLET PO SCH (20:05)
[2016-10-27 00:01] VITALS: BP 128/74
[2016-10-27 04:20] VITALS: BP 129/80
[2016-10-27] MEDS: OLANZapine 5 MG RAPDIS TABLET PO PRN ×3 (04:25→15:53)
[2016-10-27] MEDS: LEVOTHYROXINE SODIUM 100 MCG TABLET PO SCH (06:55)
[2016-10-27 08:12] VITALS: BP 120/70
[2016-10-27] MEDS: NALTREXONE HCL 50 MG TABLET PO SCH (08:26)
[2016-10-27] MEDS: LACTULOSE 20 GM/30 ML SOLUTION UDCUP PO SCH ×3 (08:26→16:19)
[2016-10-27] MEDS: DiphenhydrAMINE HCL 25 MG CAPSULE PO SCH (08:26)
[2016-10-27] MEDS: NICOTINE 21 MG/24 HOUR PATCH TD SCH (08:26)
[2016-10-27] MEDS: CloZAPine 100 MG TABLET PO SCH ×2 (08:26→16:19)
[2016-10-27] MEDS: MULTIVITAMINS WITH MINERALS, THERAPEUTIC TABLET PO SCH (08:26)
[2016-10-27] MEDS: LORATADINE 10 MG TABLET PO SCH (08:26)
[2016-10-27] MEDS: GABAPENTIN 300 MG CAPSULE PO SCH ×3 (08:26→16:19)
[2016-10-27] MEDS: LORazepam 0.5 MG TABLET PO PRN ×2 (09:51→17:34)
[2016-10-27] MEDS: DiphenhydrAMINE HCL 50 MG CAPSULE PO PRN ×2 (12:19→20:41)
[2016-10-27 16:00] VITALS: BP 143/89
[2016-10-27] MEDS: DOCUSATE SODIUM 100 MG CAPSULE PO SCH (20:41)
[2016-10-27] MEDS: DIVALPROEX SODIUM 500 MG DR TABLET PO SCH (20:41)
[2016-10-28 00:14] VITALS: BP 110/68
[2016-10-28] MEDS: OLANZapine 5 MG RAPDIS TABLET PO PRN ×2 (00:16→11:06)
[2016-10-28] MEDS: LEVOTHYROXINE SODIUM 100 MCG TABLET PO SCH (06:46)
[2016-10-28 07:06] VITALS: BP 111/78
[2016-10-28] MEDS: LORazepam 0.5 MG TABLET PO PRN ×2 (07:11→13:01)
[2016-10-28 08:02] VITALS: BP 97/56
[2016-10-28] MEDS: MULTIVITAMINS WITH MINERALS, THERAPEUTIC TABLET PO SCH (08:39)
[2016-10-28] MEDS: GABAPENTIN 300 MG CAPSULE PO SCH ×2 (08:40→13:01)
[2016-10-28] MEDS: CloZAPine 100 MG TABLET PO SCH (08:40)
[2016-10-28] MEDS: LORATADINE 10 MG TABLET PO SCH (08:40)
[2016-10-28] MEDS: LACTULOSE 20 GM/30 ML SOLUTION UDCUP PO SCH ×2 (08:40→13:01)
[2016-10-28] MEDS: NALTREXONE HCL 50 MG TABLET PO SCH (08:40)
[2016-10-28] MEDS: DiphenhydrAMINE HCL 25 MG CAPSULE PO SCH (08:40)
[2016-10-28] MEDS: NICOTINE 21 MG/24 HOUR PATCH TD SCH (08:40)
[2016-10-28] MEDS ORDERED: LACT30L PO (14:26)
[2016-10-28] MEDS ORDERED: LORA10TA7 PO (14:26)
[2016-10-28] MEDS ORDERED: MV-M1TAB2 PO (14:26)
[2016-10-28] MEDS ORDERED: DIPH50 PO (14:26)
[2016-10-28] MEDS ORDERED: DSS100 PO (14:26)
[2016-10-28] MEDS: DiphenhydrAMINE HCL 50 MG CAPSULE PO PRN (15:47)
[2016-10-28] MEDS: PHENYLEPHRINE/SHK LV/MIN OIL/PET 57 GM OINTMENT TP PRN (16:13)
== END 2016-10-28 18:35 | disposition home or self-care (01) | DRG 885 ==
LOC: BV PSY EVL 08-09 00:11 → B2S 08-09 05:49 → UNDODISIN 10-08 13:33
PROVIDERS: ATTEND Psychiatry & Neurology Psychiatry
DX: F25.0 Schizoaffective disorder, bipolar type (principal); R45.851 Suicidal ideations; E03.9 Hypothyroidism, unspecified; F41.9 Anxiety disorder, unspecified; I10 Essential (primary) hypertension; G43.909 Migraine, unspecified, not intractable, without status migrainosus; B19.20 Unspecified viral hepatitis C without hepatic coma; G25.81 Restless legs syndrome; K21.9 Gastro-esophageal reflux disease without esophagitis; J45.909 Unspecified asthma, uncomplicated; J44.9 Chronic obstructive pulmonary disease, unspecified; D64.9 Anemia, unspecified; K64.9 Unspecified hemorrhoids; G47.00 Insomnia, unspecified; K72.90 Hepatic failure, unspecified without coma; N28.9 Disorder of kidney and ureter, unspecified; F17.210 Nicotine dependence, cigarettes, uncomplicated; Z88.8 Allergy status to other drugs, medicaments and biological substances; Z91.013 Allergy to seafood; Z79.899 Other long term (current) drug therapy; Z91.19 Patient's noncompliance with other medical treatment and regimen
CPT/HCPCS: 80159; 82306; 82607; 82746; 83036; 83605; 83735; 84439; 84443; 87040; 87081; 96361; 96365; 99285; J0696; J1200; J2060; J3230; J3490; J7030

== ENCOUNTER 2016-08-15 12:07 | Emergency (ER) | payer MEDICARE, OTHER ==
[~2016-08-15] VITALS: Ht 182.9 cm; Wt 85.5 kg
[~2016-08-15 12:07] MED LIST changes: -DIVA250T4 PO
[2016-08-15] MEDS ORDERED: LORazepam 2 MG TABLET PO ONE (14:15)
[2016-08-15 14:21] LABS: BASOPHILS # (AUTO) 0.04 K/uL (0.00-0.20); BASOPHILS % (AUTO) 0.7 % (0.0-2.0); EOSINOPHILS # (AUTO) 0.02 K/uL (0.00-0.70); EOSINOPHILS % (AUTO) 0.34 % (1.0-6.0); HEMATOCRIT 39.2 % (41-53); HEMOGLOBIN 13.5 g/dL (13.5-17.5); LYMPHOCYTES # (AUTO) 1.9 K/uL (1.0-4.8); LYMPHOCYTES % (AUTO) 28.8 % (22.0-44.0); MEAN CORPUSCULAR HEMOGLOBIN 33.1 pg (26.0-34.0); MEAN CORPUSCULAR HGB CONC 34.4 G/dL (31.0-37.0); MEAN CORPUSCULAR VOLUME 96 fL (80-100); MONOCYTES # (AUTO) 0.5 K/uL (0.1-1.0); MONOCYTES % (AUTO) 7.1 % (2.0-9.0); NEUTROPHILS % (AUTO) 63.1 % (40.0-70.0); PLATELET COUNT (AUTO) 273 K/uL (150-450); RED BLOOD CELL COUNT(AUTO) 4.08 MIL/uL (4.50-5.90); RED CELL DISTRIBUTION WIDTH 13.4 % (11.5-14.5); WHITE BLOOD COUNT (AUTO) 6.4 K/uL (4.5-11.0)
[2016-08-15 14:27] LABS: ANION GAP 7 mmol/L (8-16); CALCIUM, TOTAL 8.9 mg/dL (8.8-10.5); CARBON DIOXIDE 31 mmol/L (22-29); CHLORIDE 107 mmol/L (98-107); CREATININE 0.92 mg/dL (0.60-1.30); GLOMERULAR FILTR. RATE CALC > 60 mL/min (>60); POTASSIUM 4.5 mmol/L (3.5-5.1); SODIUM SERUM 145 mmol/L (136-145); UREA NITROGEN, BLOOD 15 mg/dL (7-18)
[2016-08-15 14:32] LABS: ALANINE AMINOTRANSFERASE 31 U/L (12-78); ALBUMIN 3.4 g/dL (3.4-5.0); ASPARTATE AMINOTRANSFERASE 23 U/L (15-37); BILIRUBIN,TOTAL 0.4 mg/dL (0.1-1.0); TOTAL PROTEIN, SERUM 6.9 g/dL (6.4-8.2)
[2016-08-15 15:09] VITALS: BP 128/87
== END 2016-08-15 16:22 | disposition home or self-care (01) ==
LOC: EMS 12:12
DX: F25.9 Schizoaffective disorder, unspecified (principal); F41.9 Anxiety disorder, unspecified; F32.9 Major depressive disorder, single episode, unspecified; I10 Essential (primary) hypertension; F17.210 Nicotine dependence, cigarettes, uncomplicated; Z88.8 Allergy status to other drugs, medicaments and biological substances; Z02.89 Encounter for other administrative examinations; Z88.5 Allergy status to narcotic agent; Z91.013 Allergy to seafood
CPT/HCPCS: 36415; 80053; 80307; 85025; 99284; G0480

== ENCOUNTER 2016-10-30 10:16 | Emergency (ER) | payer MEDICARE, OTHER ==
[~2016-10-30] VITALS: Ht 177.8 cm; Wt 95.0 kg
[~2016-10-30 10:16] MED LIST changes: +AMOX1TAB16 PO; +DIPH50 PO; +DIVA250T4 PO; +DSS100 PO; +GABA-531 PO; +LACT30L PO; +LORA10TA7 PO; +MV-M1TAB2 PO
[2016-10-30 11:56] LABS: CALCIUM, TOTAL 8.4 mg/dL (8.8-10.5); CREATININE 1.53 mg/dL (0.60-1.30); HEMATOCRIT 39.7 % (41-53); HEMOGLOBIN 13.5 g/dL (13.5-17.5); MEAN CORPUSCULAR HEMOGLOBIN 32.6 pg (26.0-34.0); MEAN CORPUSCULAR VOLUME 96 fL (80-100); PLATELET COUNT (AUTO) 234 K/uL (150-450); POTASSIUM 3.6 mmol/L (3.5-5.1); RED BLOOD CELL COUNT(AUTO) 4.14 MIL/uL (4.50-5.90); RED CELL DISTRIBUTION WIDTH 12.4 % (11.5-14.5); WHITE BLOOD COUNT (AUTO) 15.5 K/uL (4.5-11.0)
[2016-10-30 12:02] LABS: ALBUMIN 3.4 g/dL (3.4-5.0); BILIRUBIN,TOTAL 0.6 mg/dL (0.1-1.0)
[2016-10-30 12:23] LABS: BAND NEUTROPHILS % (MANUAL) 13 % (1-5); LYMPHOCYTES % (MANUAL) 4 % (22-44); TOTAL CELLS COUNTED 100
[2016-10-30 12:24] LABS: RBC MORPHOLOGY COMMENT NORMAL RBC MORPH
[2016-10-30 12:28] LABS: APPEARANCE,URINE CLEAR (CLEAR); GLUCOSE, URINE (UA) NEGATIVE (NEGATIVE); KETONES,URINE TRACE mg/dL (NEGATIVE); LEUKOCYTE ESTERASE ,URINE NEGATIVE (NEGATIVE); OCCULT BLOOD,URINE SMALL (NEGATIVE); PROTEIN,URINE NEGATIVE (NEGATIVE)
[2016-10-30 12:32] LABS: RBC,URINE 0-2 /HPF (0-2); SQUAMOUS EPITHELIAL CELL,UR Few /LPF (None Seen); WBC,URINE 0-2 /HPF (0-5)
[2016-10-30] MEDS ORDERED: CIPROFLOXACIN HCL 250 MG TABLET PO ONE (15:00)
[2016-10-30] MEDS ORDERED: SODIUM CHLORIDE 0.9% 1,000 ML IV ONE (15:00)
[2016-10-30] MEDS ORDERED: ONDANSETRON HCL 4 MG/2 ML VIAL IVP ONE (15:00)
[2016-10-30] MEDS ORDERED: LORazepam 2 MG TABLET PO ONE (17:00)
[2016-10-30 17:15] VITALS: BP 118/69
== END 2016-10-30 17:18 | disposition home or self-care (01) ==
LOC: EMS 10:18
DX: R11.2 Nausea with vomiting, unspecified (principal); R19.7 Diarrhea, unspecified; F41.9 Anxiety disorder, unspecified; F32.9 Major depressive disorder, single episode, unspecified; I10 Essential (primary) hypertension; F10.20 Alcohol dependence, uncomplicated; G43.909 Migraine, unspecified, not intractable, without status migrainosus; E03.9 Hypothyroidism, unspecified; Z88.8 Allergy status to other drugs, medicaments and biological substances; Z91.013 Allergy to seafood
CPT/HCPCS: 36415; 80053; 81001; 83690; 85025; 96361; 96374; 99284; J2405; J7030

== ENCOUNTER 2016-10-30 17:21 | Emergency (ER) | payer MEDICARE, OTHER ==
[~2016-10-30] VITALS: Ht 188 cm; Wt 100.0 kg
[2016-10-30 20:36] VITALS: BP 114/67
== END 2016-10-30 20:37 | disposition home or self-care (01) ==
LOC: EEVIPCON 17:24 → EMS 17:24
DX: F25.9 Schizoaffective disorder, unspecified (principal); F41.9 Anxiety disorder, unspecified; I10 Essential (primary) hypertension; E03.9 Hypothyroidism, unspecified; F10.20 Alcohol dependence, uncomplicated; G43.909 Migraine, unspecified, not intractable, without status migrainosus; Z88.8 Allergy status to other drugs, medicaments and biological substances; Z91.013 Allergy to seafood
CPT/HCPCS: 99284

== ENCOUNTER 2016-10-31 20:47 | Inpatient (IN) | payer MEDICARE, OTHER ==
[~2016-10-31] VITALS: Ht 188 cm; Wt 100.0 kg
[~2016-10-31 20:47] MED LIST changes: -AMOX1TAB16 PO; -DIVA250T4 PO; -GABA-533 PO; -LACT30L PO; -LISI5TAB PO; -NALT50 PO; -OLAN10TA22 PO; -TRIH5TAB2 PO
[2016-10-31] MEDS ORDERED: ACETAMINOPHEN 1000 MG/ISO-OSM 100 ML IV ONE (21:15)
[2016-10-31] MEDS ORDERED: SODIUM CHLORIDE 0.9% 1,000 ML IV ONE (21:15)
[2016-10-31 21:16] LABS: GLUCOSE,POINT OF CARE 149 MG/DL (70-110)
[2016-10-31 21:47] LABS: EOSINOPHILS % (AUTO) 0 % (1.0-6.0); HEMATOCRIT 32.8 % (41-53); LYMPHOCYTES # (AUTO) 0.5 K/uL (1.0-4.8); LYMPHOCYTES % (AUTO) 9.7 % (22.0-44.0); MEAN CORPUSCULAR HEMOGLOBIN 31.6 pg (26.0-34.0); MEAN CORPUSCULAR HGB CONC 33.4 G/dL (31.0-37.0); MEAN CORPUSCULAR VOLUME 95 fL (80-100); MONOCYTES # (AUTO) 0.4 K/uL (0.1-1.0); MONOCYTES % (AUTO) 7.3 % (2.0-9.0); NEUTROPHILS # (AUTO) 4.6 K/uL (1.8-7.7); PLATELET COUNT (AUTO) 138 K/uL (150-450); RED BLOOD CELL COUNT(AUTO) 3.47 MIL/uL (4.50-5.90); RED CELL DISTRIBUTION WIDTH 11.9 % (11.5-14.5); WHITE BLOOD COUNT (AUTO) 5.5 K/uL (4.5-11.0)
[2016-10-31] MEDS ORDERED: ALBUTEROL SULFATE 2.5 MG/0.5 ML NEB SOLUTION NEB PRN (22:00)
[2016-10-31] MEDS ORDERED: MAGNESIUM HYDROXIDE SUSPENSION 30 ML UDCUP PO PRN (22:00)
[2016-10-31 22:03] LABS: ALANINE AMINOTRANSFERASE 80 U/L (12-78); ALBUMIN 3.3 g/dL (3.4-5.0); ANION GAP 7 mmol/L (8-16); ASPARTATE AMINOTRANSFERASE 118 U/L (15-37); BILIRUBIN,TOTAL 0.5 mg/dL (0.1-1.0); CALCIUM, TOTAL 7.9 mg/dL (8.8-10.5); CARBON DIOXIDE 28 mmol/L (22-29); CHLORIDE 87 mmol/L (98-107); CREATININE 1.21 mg/dL (0.60-1.30); GLOMERULAR FILTR. RATE CALC > 60 mL/min (>60); POTASSIUM 3.7 mmol/L (3.5-5.1); TOTAL PROTEIN, SERUM 6.8 g/dL (6.4-8.2); UREA NITROGEN, BLOOD 13 mg/dL (7-18)
[2016-10-31 22:06] LABS: B-TYPE NATRIURETIC PEPTIDE 64 pg/mL (0-100); LACTIC ACID 1.4 mmol/L (0.4-2.0); SODIUM SERUM 122 mmol/L (136-145)
[2016-10-31] MEDS ORDERED: SODIUM CHLORIDE 3% 500 ML IV ONE (22:15)
[2016-10-31 22:54] LABS: APPEARANCE,URINE CLEAR (CLEAR); GLUCOSE, URINE (UA) NEGATIVE (NEGATIVE); KETONES,URINE NEGATIVE (NEGATIVE); LEUKOCYTE ESTERASE ,URINE NEGATIVE (NEGATIVE); OCCULT BLOOD,URINE MODERATE (NEGATIVE); PH,URINE 7.5 (5.0-8.0); PROTEIN,URINE NEGATIVE (NEGATIVE)
[2016-10-31 22:56] LABS: ADD UA MICROSCOPIC YES
[2016-10-31 23:02] LABS: WBC,URINE 0-2 /HPF (0-5)
[2016-10-31] MEDS: CefTRIAXone 1 GM/DEXTROSE 50 ML IV SCH (23:05)
[2016-10-31 23:11] LABS: INFLUENZA TYPE B NEGATIVE FOR TYPE B (NEGATIVE)
[2016-11-01] MEDS: HEPARIN SODIUM,PORCINE 5,000 UNITS/ML VIAL SQ SCH ×4 (00:50→23:45)
[2016-11-01] MEDS: AZITHROMYCIN 500 MG/NS 250 ML IV SCH ×2 (00:55→21:38)
[2016-11-01 03:57] VITALS: BP 113/88
[2016-11-01] MEDS: LORazepam 2 MG/ML VIAL IVP PRN ×2 (04:21→21:44)
[2016-11-01 05:47] LABS: HEMATOCRIT 33.7 % (41-53); HEMOGLOBIN 11.3 g/dL (13.5-17.5); MEAN CORPUSCULAR HEMOGLOBIN 31.8 pg (26.0-34.0); MEAN CORPUSCULAR HGB CONC 33.7 G/dL (31.0-37.0); MEAN CORPUSCULAR VOLUME 94 fL (80-100); PLATELET COUNT (AUTO) 122 K/uL (150-450); RED BLOOD CELL COUNT(AUTO) 3.57 MIL/uL (4.50-5.90); WHITE BLOOD COUNT (AUTO) 3.6 K/uL (4.5-11.0)
[2016-11-01 06:06] LABS: ANION GAP 9 mmol/L (8-16); CALCIUM, TOTAL 7.7 mg/dL (8.8-10.5); CARBON DIOXIDE 27 mmol/L (22-29); CHLORIDE 94 mmol/L (98-107); CREATININE 1.09 mg/dL (0.60-1.30); GLOMERULAR FILTR. RATE CALC > 60 mL/min (>60); POTASSIUM 3.4 mmol/L (3.5-5.1); SODIUM SERUM 130 mmol/L (136-145); UREA NITROGEN, BLOOD 9 mg/dL (7-18)
[2016-11-01 07:36] VITALS: BP 127/62
[2016-11-01] MEDS ORDERED: POTASSIUM CHLORIDE 20 MEQ ER TABLET PO PRN (08:30)
[2016-11-01 09:11] LABS: BAND NEUTROPHILS % (MANUAL) 20 % (1-5); LYMPHOCYTES % (MANUAL) 30 % (22-44); RBC MORPHOLOGY COMMENT NORMAL RBC MORPH; TOTAL CELLS COUNTED 100
[2016-11-01] MEDS: PANTOPRAZOLE SODIUM 40 MG DR TABLET PO SCH (09:14)
[2016-11-01] MEDS: DOCUSATE SODIUM 100 MG CAPSULE PO SCH ×2 (09:14→21:00)
[2016-11-01 11:10] VITALS: BP 117/52
[2016-11-01] MEDS: ACETAMINOPHEN 325 MG TABLET PO PRN ×2 (12:10→21:17)
[2016-11-01 15:15] VITALS: BP 93/42
[2016-11-01 20:15] VITALS: BP 129/71
[2016-11-01] MEDS: CefTRIAXone 1 GM/DEXTROSE 50 ML IV SCH (21:17)
[2016-11-01] MEDS ORDERED: SODIUM CHLORIDE 0.9% 250 ML IV ONE (21:20)
[2016-11-01 23:05] VITALS: BP 108/58
[2016-11-02 05:03] VITALS: BP 141/79
[2016-11-02 06:50] LABS: ANION GAP 8 mmol/L (8-16); CALCIUM, TOTAL 8.3 mg/dL (8.8-10.5); CARBON DIOXIDE 28 mmol/L (22-29); CHLORIDE 94 mmol/L (98-107); CREATININE 0.98 mg/dL (0.60-1.30); GLOMERULAR FILTR. RATE CALC > 60 mL/min (>60); POTASSIUM 3.4 mmol/L (3.5-5.1); SODIUM SERUM 130 mmol/L (136-145); UREA NITROGEN, BLOOD 9 mg/dL (7-18)
[2016-11-02 08:13] VITALS: BP 111/64
[2016-11-02] MEDS: PANTOPRAZOLE SODIUM 40 MG DR TABLET PO SCH (09:09)
[2016-11-02] MEDS: DOCUSATE SODIUM 100 MG CAPSULE PO SCH (09:09)
[2016-11-02] MEDS: HEPARIN SODIUM,PORCINE 5,000 UNITS/ML VIAL SQ SCH (09:09)
[2016-11-02 12:00] VITALS: BP 109/57
[2016-11-02] MEDS: LORazepam 2 MG/ML VIAL IVP PRN (12:44)
== END 2016-11-02 15:10 | disposition home or self-care (01) | DRG 193 ==
LOC: EMS 20:50 → 6N 23:33
PROVIDERS: ADMIT Internal Medicine; ATTEND Internal Medicine
DX: J18.9 Pneumonia, unspecified organism (principal); G93.41 Metabolic encephalopathy; E87.1 Hypo-osmolality and hyponatremia; D61.818 Other pancytopenia; I10 Essential (primary) hypertension; F25.9 Schizoaffective disorder, unspecified; E03.9 Hypothyroidism, unspecified; G43.909 Migraine, unspecified, not intractable, without status migrainosus; F41.9 Anxiety disorder, unspecified; F32.9 Major depressive disorder, single episode, unspecified; G25.81 Restless legs syndrome; B19.20 Unspecified viral hepatitis C without hepatic coma; E87.8 Other disorders of electrolyte and fluid balance, not elsewhere classified; F17.210 Nicotine dependence, cigarettes, uncomplicated; F99 Mental disorder, not otherwise specified; F10.21 Alcohol dependence, in remission; Z79.899 Other long term (current) drug therapy; Z88.8 Allergy status to other drugs, medicaments and biological substances; Z91.013 Allergy to seafood
CPT/HCPCS: 82962; 83605; 87040; 87147; 87804; 93005; 96361; 96365; 99285; J0131; J0456; J0696; J1644; J2060; J7030; J7050

== ENCOUNTER 2016-11-11 23:12 | Inpatient (IN) | payer MEDICARE, MEDICAID ==
[~2016-11-11] VITALS: Ht 190.5 cm; Wt 95.5 kg
[~2016-11-11 23:12] MED LIST changes: -DIPH50 PO; -GABA-531 PO; -LORA10TA7 PO
[2016-11-11 23:36] LABS: BASOPHILS # (AUTO) 0.05 K/uL (0.00-0.20); BASOPHILS % (AUTO) 0.5 % (0.0-2.0); EOSINOPHILS # (AUTO) 0.04 K/uL (0.00-0.70); EOSINOPHILS % (AUTO) 0.36 % (1.0-6.0); HEMATOCRIT 37.1 % (41-53); HEMOGLOBIN 12.7 g/dL (13.5-17.5); LYMPHOCYTES # (AUTO) 2.8 K/uL (1.0-4.8); LYMPHOCYTES % (AUTO) 25.3 % (22.0-44.0); MEAN CORPUSCULAR HEMOGLOBIN 32.6 pg (26.0-34.0); MEAN CORPUSCULAR HGB CONC 34.2 G/dL (31.0-37.0); MEAN CORPUSCULAR VOLUME 95 fL (80-100); MONOCYTES # (AUTO) 0.7 K/uL (0.1-1.0); MONOCYTES % (AUTO) 6.5 % (2.0-9.0); NEUTROPHILS # (AUTO) 7.6 K/uL (1.8-7.7); NEUTROPHILS % (AUTO) 67.4 % (40.0-70.0); PLATELET COUNT (AUTO) 590 K/uL (150-450); RED BLOOD CELL COUNT(AUTO) 3.89 MIL/uL (4.50-5.90); RED CELL DISTRIBUTION WIDTH 13.5 % (11.5-14.5); WHITE BLOOD COUNT (AUTO) 11.2 K/uL (4.5-11.0)
[2016-11-11 23:48] LABS: ANION GAP 12 mmol/L (8-16); CALCIUM, TOTAL 8.9 mg/dL (8.8-10.5); CARBON DIOXIDE 23 mmol/L (22-29); CHLORIDE 100 mmol/L (98-107); GLOMERULAR FILTR. RATE CALC > 60 mL/min (>60); POTASSIUM 3.5 mmol/L (3.5-5.1); SODIUM SERUM 135 mmol/L (136-145); UREA NITROGEN, BLOOD 10 mg/dL (7-18)
[2016-11-11 23:54] LABS: ALANINE AMINOTRANSFERASE 36 U/L (12-78); ALBUMIN 3.6 g/dL (3.4-5.0); ASPARTATE AMINOTRANSFERASE 21 U/L (15-37); BILIRUBIN,TOTAL 0.4 mg/dL (0.1-1.0); TOTAL PROTEIN, SERUM 7.5 g/dL (6.4-8.2)
[2016-11-12 00:28] LABS: THYROID STIMULATING HORMONE 2.85 uIU/mL (0.36-3.74); VALPROIC ACID 16 mcg/mL (50-100)
[2016-11-12] MEDS ORDERED: ZOLPIDEM TARTRATE 10 MG TABLET PO PRN (00:30)
[2016-11-12 02:14] VITALS: BP 143/91
[2016-11-12 02:48] LABS: APPEARANCE,URINE CLEAR (CLEAR); GLUCOSE, URINE (UA) NEGATIVE (NEGATIVE); KETONES,URINE NEGATIVE (NEGATIVE); LEUKOCYTE ESTERASE ,URINE NEGATIVE (NEGATIVE); OCCULT BLOOD,URINE NEGATIVE (NEGATIVE); PROTEIN,URINE NEGATIVE (NEGATIVE)
[2016-11-12 02:49] LABS: ADD UA MICROSCOPIC NO
[2016-11-12 08:08] VITALS: BP 108/63
[2016-11-12] MEDS: LORazepam 2 MG TABLET PO PRN ×2 (08:59→14:22)
[2016-11-12] MEDS ORDERED: LOPERAMIDE HCL 2 MG CAPSULE PO PRN (09:15)
[2016-11-12] MEDS ORDERED: PROMETHAZINE HCL 25 MG TABLET PO PRN (09:15)
[2016-11-12] MEDS ORDERED: GuaiFENesin/D-METHORPHAN [SUGAR-FREE] 200-20MG/10 ML SYRUP UDCUP PO PRN (09:15)
[2016-11-12] MEDS ORDERED: MAGNESIUM HYDROXIDE SUSPENSION 30 ML UDCUP PO PRN (09:15)
[2016-11-12] MEDS ORDERED: ACETAMINOPHEN 325 MG TABLET PO PRN (09:15)
[2016-11-12] MEDS ORDERED: HydrOXYzine PAMOATE 50 MG CAPSULE PO PRN (09:15)
[2016-11-12] MEDS ORDERED: MAG HYDROX/AL HYDROX/SIMETH ES 30 ML SUSPENSION UDCUP PO PRN (09:15)
[2016-11-12] MEDS: THIAMINE HCL 100 MG TABLET PO SCH (16:54)
[2016-11-12] MEDS: CloZAPine 100 MG TABLET PO SCH (16:55)
[2016-11-12] MEDS: DIVALPROEX SODIUM 500 MG ER TABLET PO SCH (20:30)
[2016-11-12] MEDS: DOCUSATE SODIUM 100 MG CAPSULE PO SCH (20:30)
[2016-11-12] MEDS ORDERED: CloZAPine 100 MG TABLET PO SCH (21:00)
[2016-11-13] MEDS: LEVOTHYROXINE SODIUM 100 MCG TABLET PO SCH (06:19)
[2016-11-13 08:02] VITALS: BP 141/90
[2016-11-13] MEDS: FOLIC ACID 1 MG TABLET PO SCH (08:05)
[2016-11-13] MEDS: MULTIVITAMINS WITH MINERALS, THERAPEUTIC TABLET PO SCH (08:05)
[2016-11-13] MEDS: CloZAPine 100 MG TABLET PO SCH ×2 (08:05→16:18)
[2016-11-13] MEDS: THIAMINE HCL 100 MG TABLET PO SCH ×2 (08:06→16:18)
[2016-11-13] MEDS: LORazepam 2 MG TABLET PO PRN ×2 (08:06→14:01)
[2016-11-13] MEDS: OLANZapine 5 MG RAPDIS TABLET PO PRN (09:49)
[2016-11-13 10:42] VITALS: BP 138/74
[2016-11-13 11:42] VITALS: BP 126/74
[2016-11-13 17:00] VITALS: BP 127/84
[2016-11-13] MEDS: DOCUSATE SODIUM 100 MG CAPSULE PO SCH (21:00)
[2016-11-13] MEDS: DIVALPROEX SODIUM 500 MG ER TABLET PO SCH (22:43)
[2016-11-14] MEDS: LEVOTHYROXINE SODIUM 100 MCG TABLET PO SCH (06:19)
[2016-11-14] MEDS: CloZAPine 100 MG TABLET PO SCH ×2 (08:28→16:24)
[2016-11-14] MEDS: MULTIVITAMINS WITH MINERALS, THERAPEUTIC TABLET PO SCH (08:28)
[2016-11-14] MEDS: THIAMINE HCL 100 MG TABLET PO SCH ×2 (08:28→16:24)
[2016-11-14] MEDS: FOLIC ACID 1 MG TABLET PO SCH (08:28)
[2016-11-14] MEDS: LORazepam 2 MG TABLET PO PRN (08:40)
[2016-11-14 10:39] VITALS: BP 144/87
[2016-11-14] MEDS: OLANZapine 5 MG RAPDIS TABLET PO PRN (16:29)
[2016-11-14 17:15] VITALS: BP 130/72
[2016-11-14] MEDS: DIVALPROEX SODIUM 500 MG ER TABLET PO SCH (20:19)
[2016-11-14] MEDS: DOCUSATE SODIUM 100 MG CAPSULE PO SCH (20:19)
[2016-11-15 06:38] VITALS: BP 126/71
[2016-11-15] MEDS: LEVOTHYROXINE SODIUM 100 MCG TABLET PO SCH (06:38)
[2016-11-15] MEDS: LORazepam 2 MG TABLET PO PRN ×3 (06:43→16:15)
[2016-11-15 07:32] LABS: CHOL/HDL RATIO 3.1 (4.2-7.3); CREATINE KINASE MB 1.1 ng/mL (0-5); CREATINE KINASE, TOTAL 122 U/L (39-308); THYROID STIMULATING HORMONE 4.31 uIU/mL (0.36-3.74)
[2016-11-15 08:12] VITALS: BP 127/76
[2016-11-15] MEDS: THIAMINE HCL 100 MG TABLET PO SCH ×2 (08:32→16:08)
[2016-11-15] MEDS: CloZAPine 100 MG TABLET PO SCH ×2 (08:32→16:07)
[2016-11-15] MEDS: FOLIC ACID 1 MG TABLET PO SCH (08:32)
[2016-11-15] MEDS: MULTIVITAMINS WITH MINERALS, THERAPEUTIC TABLET PO SCH (08:32)
[2016-11-15] MEDS: OLANZapine 5 MG RAPDIS TABLET PO PRN (10:50)
[2016-11-15] MEDS ORDERED: ALBUTEROL SULFATE HFA 90 MCG/PUFF 8 GM INHALER IH PRN (11:15)
[2016-11-15 16:37] VITALS: BP 119/64
[2016-11-15] MEDS ORDERED: DIVA500T52 PO (16:40)
[2016-11-15] MEDS ORDERED: NALT50 PO (16:40)
[2016-11-15] MEDS ORDERED: CLOZ100 PO (16:40)
[2016-11-15] MEDS: DOCUSATE SODIUM 100 MG CAPSULE PO SCH (20:01)
[2016-11-15] MEDS: DIVALPROEX SODIUM 500 MG ER TABLET PO SCH (20:02)
[2016-11-16 01:30] VITALS: BP 148/80
[2016-11-16] MEDS ORDERED: DIVA500T35 PO (03:47)
[2016-11-16] MEDS ORDERED: FOLI1 PO ×2 (03:48→04:14)
[2016-11-16] MEDS ORDERED: THIA100 PO ×2 (03:48→04:13)
[2016-11-16] MEDS ORDERED: CLOZ100 PO (03:49)
[2016-11-16] MEDS ORDERED: LEVO100T4 PO ×2 (04:00→04:13)
[2016-11-16] MEDS ORDERED: MULT-723 PO ×2 (04:02→04:14)
[2016-11-16] MEDS: LEVOTHYROXINE SODIUM 100 MCG TABLET PO SCH (06:09)
[2016-11-16] MEDS: THIAMINE HCL 100 MG TABLET PO SCH ×2 (07:57→16:07)
[2016-11-16] MEDS: NALTREXONE HCL 50 MG TABLET PO SCH (07:57)
[2016-11-16] MEDS: FOLIC ACID 1 MG TABLET PO SCH (07:58)
[2016-11-16] MEDS: CloZAPine 100 MG TABLET PO SCH ×2 (07:58→16:10)
[2016-11-16] MEDS: MULTIVITAMINS WITH MINERALS, THERAPEUTIC TABLET PO SCH (07:59)
[2016-11-16] MEDS: LORazepam 2 MG TABLET PO PRN (08:06)
[2016-11-16 09:16] LABS: CLOZAPINE 257 ng/mL (350-650); CLOZAPINE & NORCLOZAPINE 366 ng/mL; NORCLOZAPINE 109 ng/mL (Not Estab.)
[2016-11-16] MEDS ORDERED: LORazepam 2 MG/ML VIAL IM ONE (12:45)
[2016-11-16] MEDS ORDERED: DiphenhydrAMINE HCL 50 MG/ML VIAL IM ONE (12:45)
[2016-11-16] MEDS ORDERED: FluPHENAZine HCL 2.5 MG/ML INJ IM ONE (12:45)
[2016-11-16 16:17] VITALS: BP 121/71
[2016-11-16] MEDS: DIVALPROEX SODIUM 500 MG ER TABLET PO SCH (20:16)
[2016-11-16] MEDS: DOCUSATE SODIUM 100 MG CAPSULE PO SCH (20:16)
[2016-11-17] MEDS: LEVOTHYROXINE SODIUM 100 MCG TABLET PO SCH (06:30)
[2016-11-17 08:00] VITALS: BP 104/67
[2016-11-17] MEDS: FOLIC ACID 1 MG TABLET PO SCH (08:14)
[2016-11-17] MEDS: MULTIVITAMINS WITH MINERALS, THERAPEUTIC TABLET PO SCH (08:14)
[2016-11-17] MEDS: LORazepam 2 MG TABLET PO PRN ×2 (08:15→13:26)
[2016-11-17] MEDS: THIAMINE HCL 100 MG TABLET PO SCH ×2 (08:15→16:11)
[2016-11-17] MEDS: NALTREXONE HCL 50 MG TABLET PO SCH (08:15)
[2016-11-17] MEDS: CloZAPine 100 MG TABLET PO SCH ×2 (08:15→16:10)
[2016-11-17] MEDS: LACTULOSE 20 GM/30 ML SOLUTION UDCUP PO SCH (14:22)
[2016-11-17 17:00] VITALS: BP 109/68
[2016-11-17] MEDS: DOCUSATE SODIUM 100 MG CAPSULE PO SCH (21:21)
[2016-11-17] MEDS: DIVALPROEX SODIUM 500 MG ER TABLET PO SCH (21:21)
[2016-11-18 01:50] VITALS: BP 117/87
[2016-11-18] MEDS: LORazepam 2 MG TABLET PO PRN ×3 (01:52→17:44)
[2016-11-18 06:47] LABS: BASOPHILS % (AUTO) 0.5 % (0.0-2.0); HEMATOCRIT 37.2 % (41-53); HEMOGLOBIN 12.9 g/dL (13.5-17.5); LYMPHOCYTES # (AUTO) 2.3 K/uL (1.0-4.8); LYMPHOCYTES % (AUTO) 49.3 % (22.0-44.0); MEAN CORPUSCULAR HEMOGLOBIN 32.8 pg (26.0-34.0); MEAN CORPUSCULAR HGB CONC 34.6 G/dL (31.0-37.0); MEAN CORPUSCULAR VOLUME 95 fL (80-100); MONOCYTES # (AUTO) 0.4 K/uL (0.1-1.0); MONOCYTES % (AUTO) 9.1 % (2.0-9.0); NEUTROPHILS # (AUTO) 1.9 K/uL (1.8-7.7); NEUTROPHILS % (AUTO) 40.1 % (40.0-70.0); PLATELET COUNT (AUTO) 410 K/uL (150-450); RED BLOOD CELL COUNT(AUTO) 3.91 MIL/uL (4.50-5.90); RED CELL DISTRIBUTION WIDTH 13.7 % (11.5-14.5); WHITE BLOOD COUNT (AUTO) 4.7 K/uL (4.5-11.0)
[2016-11-18] MEDS: LEVOTHYROXINE SODIUM 100 MCG TABLET PO SCH (06:57)
[2016-11-18 08:00] VITALS: BP 155/84
[2016-11-18] MEDS: MULTIVITAMINS WITH MINERALS, THERAPEUTIC TABLET PO SCH (08:17)
[2016-11-18] MEDS: CloZAPine 100 MG TABLET PO SCH ×2 (08:18→17:18)
[2016-11-18] MEDS: NALTREXONE HCL 50 MG TABLET PO SCH (08:18)
[2016-11-18] MEDS: THIAMINE HCL 100 MG TABLET PO SCH ×2 (08:18→17:18)
[2016-11-18] MEDS: FOLIC ACID 1 MG TABLET PO SCH (08:18)
[2016-11-18] MEDS: LACTULOSE 20 GM/30 ML SOLUTION UDCUP PO SCH (08:24)
[2016-11-18] MEDS ORDERED: LACT30L PO (11:05)
[2016-11-18 16:19] VITALS: BP 144/75
[2016-11-18] MEDS: DOCUSATE SODIUM 100 MG CAPSULE PO SCH (21:19)
[2016-11-18] MEDS: DIVALPROEX SODIUM 500 MG ER TABLET PO SCH (21:19)
[2016-11-19] MEDS: LEVOTHYROXINE SODIUM 100 MCG TABLET PO SCH (06:54)
[2016-11-19] MEDS: LACTULOSE 20 GM/30 ML SOLUTION UDCUP PO SCH (08:10)
[2016-11-19] MEDS: NALTREXONE HCL 50 MG TABLET PO SCH (08:10)
[2016-11-19] MEDS: MULTIVITAMINS WITH MINERALS, THERAPEUTIC TABLET PO SCH (08:10)
[2016-11-19] MEDS: THIAMINE HCL 100 MG TABLET PO SCH ×2 (08:10→16:16)
[2016-11-19] MEDS: FOLIC ACID 1 MG TABLET PO SCH (08:11)
[2016-11-19] MEDS: CloZAPine 100 MG TABLET PO SCH ×2 (08:11→16:15)
[2016-11-19] MEDS: LORazepam 2 MG TABLET PO PRN (09:28)
[2016-11-19 10:20] VITALS: BP 132/73
[2016-11-19] MEDS: OLANZapine 5 MG RAPDIS TABLET PO PRN (16:17)
[2016-11-19 16:19] LABS: CLOZAPINE 234 ng/mL (350-650); CLOZAPINE & NORCLOZAPINE 297 ng/mL; NORCLOZAPINE 63 ng/mL (Not Estab.)
[2016-11-19 16:34] VITALS: BP 113/73
[2016-11-19] MEDS: DIVALPROEX SODIUM 500 MG ER TABLET PO SCH (21:16)
[2016-11-19] MEDS: DOCUSATE SODIUM 100 MG CAPSULE PO SCH (21:16)
[2016-11-20] MEDS: LEVOTHYROXINE SODIUM 100 MCG TABLET PO SCH (07:08)
[2016-11-20 08:00] VITALS: BP 131/72
[2016-11-20] MEDS: MULTIVITAMINS WITH MINERALS, THERAPEUTIC TABLET PO SCH (09:06)
[2016-11-20] MEDS: NALTREXONE HCL 50 MG TABLET PO SCH (09:07)
[2016-11-20] MEDS: FOLIC ACID 1 MG TABLET PO SCH (09:07)
[2016-11-20] MEDS: THIAMINE HCL 100 MG TABLET PO SCH ×2 (09:07→16:11)
[2016-11-20] MEDS: CloZAPine 100 MG TABLET PO SCH ×2 (09:07→16:10)
[2016-11-20] MEDS: LACTULOSE 20 GM/30 ML SOLUTION UDCUP PO SCH (09:08)
[2016-11-20] MEDS: LORazepam 2 MG TABLET PO PRN ×2 (10:18→21:19)
[2016-11-20 17:02] VITALS: BP 143/78
[2016-11-20] MEDS: DIVALPROEX SODIUM 500 MG ER TABLET PO SCH (20:27)
[2016-11-20] MEDS: DOCUSATE SODIUM 100 MG CAPSULE PO SCH (20:27)
[2016-11-21] MEDS: LEVOTHYROXINE SODIUM 100 MCG TABLET PO SCH (06:47)
[2016-11-21 08:16] VITALS: BP 137/84
[2016-11-21] MEDS: CloZAPine 100 MG TABLET PO SCH ×2 (09:04→16:59)
[2016-11-21] MEDS: THIAMINE HCL 100 MG TABLET PO SCH ×2 (09:05→17:00)
[2016-11-21] MEDS: MULTIVITAMINS WITH MINERALS, THERAPEUTIC TABLET PO SCH (09:06)
[2016-11-21] MEDS: NALTREXONE HCL 50 MG TABLET PO SCH (09:06)
[2016-11-21] MEDS: FOLIC ACID 1 MG TABLET PO SCH (09:06)
[2016-11-21] MEDS: LORazepam 2 MG TABLET PO PRN ×2 (09:07→17:02)
[2016-11-21] MEDS: LACTULOSE 20 GM/30 ML SOLUTION UDCUP PO SCH (09:11)
[2016-11-21] MEDS: OLANZapine 5 MG RAPDIS TABLET PO PRN (10:32)
[2016-11-21 16:49] VITALS: BP 116/78
[2016-11-21] MEDS: DIVALPROEX SODIUM 500 MG ER TABLET PO SCH (20:16)
[2016-11-21] MEDS: DOCUSATE SODIUM 100 MG CAPSULE PO SCH (20:17)
[2016-11-22] MEDS: LEVOTHYROXINE SODIUM 100 MCG TABLET PO SCH (06:26)
[2016-11-22 08:10] VITALS: BP 138/98
[2016-11-22] MEDS: CloZAPine 100 MG TABLET PO SCH ×2 (08:17→17:02)
[2016-11-22] MEDS: LORazepam 2 MG TABLET PO PRN ×2 (08:17→17:27)
[2016-11-22] MEDS: NALTREXONE HCL 50 MG TABLET PO SCH (08:18)
[2016-11-22] MEDS: FOLIC ACID 1 MG TABLET PO SCH (08:18)
[2016-11-22] MEDS: MULTIVITAMINS WITH MINERALS, THERAPEUTIC TABLET PO SCH (08:18)
[2016-11-22] MEDS: THIAMINE HCL 100 MG TABLET PO SCH (08:18)
[2016-11-22] MEDS: LACTULOSE 20 GM/30 ML SOLUTION UDCUP PO SCH (08:20)
[2016-11-22 16:59] VITALS: BP 128/99
[2016-11-22] MEDS: DIVALPROEX SODIUM 500 MG ER TABLET PO SCH (20:33)
[2016-11-22] MEDS: DOCUSATE SODIUM 100 MG CAPSULE PO SCH (20:33)
[2016-11-23] MEDS: LEVOTHYROXINE SODIUM 100 MCG TABLET PO SCH (06:34)
[2016-11-23 08:10] VITALS: BP 142/87
[2016-11-23] MEDS: LACTULOSE 20 GM/30 ML SOLUTION UDCUP PO SCH (08:44)
[2016-11-23] MEDS: NALTREXONE HCL 50 MG TABLET PO SCH (08:44)
[2016-11-23] MEDS: CloZAPine 100 MG TABLET PO SCH ×2 (08:45→16:55)
[2016-11-23] MEDS: LORazepam 2 MG TABLET PO PRN ×2 (08:45→20:30)
[2016-11-23] MEDS: MULTIVITAMINS WITH MINERALS, THERAPEUTIC TABLET PO SCH (08:45)
[2016-11-23 17:00] VITALS: BP 114/72
[2016-11-23] MEDS: DOCUSATE SODIUM 100 MG CAPSULE PO SCH (20:26)
[2016-11-23] MEDS: DIVALPROEX SODIUM 500 MG ER TABLET PO SCH (20:26)
[2016-11-24] MEDS: LEVOTHYROXINE SODIUM 100 MCG TABLET PO SCH (06:13)
[2016-11-24 08:05] VITALS: BP 131/78
[2016-11-24] MEDS: NALTREXONE HCL 50 MG TABLET PO SCH (08:13)
[2016-11-24] MEDS: CloZAPine 100 MG TABLET PO SCH ×2 (08:13→16:38)
[2016-11-24] MEDS: MULTIVITAMINS WITH MINERALS, THERAPEUTIC TABLET PO SCH (08:13)
[2016-11-24] MEDS: LORazepam 2 MG TABLET PO PRN ×3 (08:17→17:13)
[2016-11-24] MEDS: LACTULOSE 20 GM/30 ML SOLUTION UDCUP PO SCH (08:19)
[2016-11-24] MEDS: OLANZapine 5 MG RAPDIS TABLET PO PRN ×2 (09:38→13:50)
[2016-11-24] MEDS ORDERED: TUBERCULIN, PURIFIED PROTEIN DERIVATIVE 5 TU/0.1 ML SYG ID ONE (12:45)
[2016-11-24 17:00] VITALS: BP 127/76
[2016-11-24] MEDS: DIVALPROEX SODIUM 500 MG ER TABLET PO SCH (20:40)
[2016-11-24] MEDS: DOCUSATE SODIUM 100 MG CAPSULE PO SCH (20:40)
[2016-11-25] MEDS: LEVOTHYROXINE SODIUM 100 MCG TABLET PO SCH (06:48)
[2016-11-25 07:04] LABS: BASOPHILS % (AUTO) 0.3 % (0.0-2.0); EOSINOPHILS % (AUTO) 1.3 % (1.0-6.0); HEMATOCRIT 40.6 % (41-53); HEMOGLOBIN 14.1 g/dL (13.5-17.5); LYMPHOCYTES # (AUTO) 2.6 K/uL (1.0-4.8); LYMPHOCYTES % (AUTO) 50.5 % (22.0-44.0); MEAN CORPUSCULAR HEMOGLOBIN 32.8 pg (26.0-34.0); MEAN CORPUSCULAR HGB CONC 34.8 G/dL (31.0-37.0); MEAN CORPUSCULAR VOLUME 94 fL (80-100); MONOCYTES # (AUTO) 0.6 K/uL (0.1-1.0); MONOCYTES % (AUTO) 11.2 % (2.0-9.0); NEUTROPHILS # (AUTO) 1.9 K/uL (1.8-7.7); NEUTROPHILS % (AUTO) 36.7 % (40.0-70.0); PLATELET COUNT (AUTO) 286 K/uL (150-450); RED CELL DISTRIBUTION WIDTH 13.3 % (11.5-14.5); WHITE BLOOD COUNT (AUTO) 5.2 K/uL (4.5-11.0)
[2016-11-25 08:00] VITALS: BP 128/80
[2016-11-25] MEDS: CloZAPine 100 MG TABLET PO SCH (08:35)
[2016-11-25] MEDS: NALTREXONE HCL 50 MG TABLET PO SCH (08:35)
[2016-11-25] MEDS: MULTIVITAMINS WITH MINERALS, THERAPEUTIC TABLET PO SCH (08:35)
[2016-11-25] MEDS: LACTULOSE 20 GM/30 ML SOLUTION UDCUP PO SCH (08:36)
== END 2016-11-25 11:30 | disposition home or self-care (01) | DRG 885 ==
LOC: EMS 23:14 → 3EI 11-12 01:16 → 3EX 11-12 15:55
PROVIDERS: ADMIT Psychiatry & Neurology Psychiatry; ATTEND Psychiatry & Neurology Psychiatry
DX: F25.1 Schizoaffective disorder, depressive type (principal); F17.210 Nicotine dependence, cigarettes, uncomplicated; E03.9 Hypothyroidism, unspecified; J44.9 Chronic obstructive pulmonary disease, unspecified; K21.9 Gastro-esophageal reflux disease without esophagitis; B19.20 Unspecified viral hepatitis C without hepatic coma; G43.909 Migraine, unspecified, not intractable, without status migrainosus; M54.9 Dorsalgia, unspecified; G25.81 Restless legs syndrome; G89.29 Other chronic pain; K59.00 Constipation, unspecified; D64.9 Anemia, unspecified; D72.829 Elevated white blood cell count, unspecified; I10 Essential (primary) hypertension; Z88.8 Allergy status to other drugs, medicaments and biological substances; Z91.013 Allergy to seafood; Z82.5 Family history of asthma and other chronic lower respiratory diseases; Z91.19 Patient's noncompliance with other medical treatment and regimen
CPT/HCPCS: 70450; 80159; 82306; 82607; 82746; 83735; 84439; 84443; 87081; 99285; 99406; G0480; J1200; J2060; J3490; J3535

== ENCOUNTER 2019-06-11 10:37 | Emergency (ER) | payer MEDICARE, OTHER ==
[~2019-06-11 10:37] MED LIST changes: -CLOZ100 PO; -DIVA250T25 PO; -LEVO100 PO; +LEVO100T4 PO; -MV-M1TAB2 PO
== END 2019-06-11 14:21 | disposition left against medical advice (07) ==
LOC: EMS 10:41
DX: M54.5 Low back pain (principal); Z53.21 Procedure and treatment not carried out due to patient leaving prior to being seen by health care provider